=== PATIENT | female | born 1980 | race Caucasian/White ===

== ENCOUNTER 2018-02-07 18:08 | Emergency (ER) | payer MEDICAID, SELFPAY ==
[2018-02-07 18:14] VITALS: BP 109/69; PULSE 92; RESP 18; TEMP 37; O2SAT 98
[2018-02-07] MEDS: Clindamycin 150 MG CAP 450 MG (19:21)
--- NOTE | 2018-02-07 19:42 | ED.GENADUL_ITS ---
Discharge Plan Disposition Patient Disposition: HOME Condition: Good Discharge Details Chief Complaint: RashLesion Clinical Impression: Cellulitis Primary Care Provider: Deisy Cummings ED Provider: Yaakov Frederick Home Meds and New Rx's Prescriptions: New clindamycin HCl 150 mg capsule 450 mg PO TID 10 Days Qty: 90 RF: 0 No Action lamotrigine [Lamictal] 100 MG tablet 100 mg PO DAILY RF: 0 escitalopram oxalate [Lexapro] 10 MG tablet 10 mg PO DAILY RF: 0 Discharge Instructions Instructions: Cellulitis (ED) Additional Instructions: Please take the antibiotic as directed, please take them with yogurt with live cultures. If you notice any worsening of your symptoms, or any new symptoms such as vomiting, diarrhea, fever, chills, shortness of breath, chest pain, numbness, weakness, or fainting , please return immediately to the emergency department for reevaluation. Please follow up with your primary care provider as soon as possible for reassessment and reevaluation. As always, it was a pleasure participating in your medical care today. Referrals: Deisy Cummings [Primary Care Provider] - Medical Decision Making This is a 37-year-old female with a past medical history of a previous abscess a few years ago, no other significant medical problems who presents today for evaluation of abscess. Skin exam demonstrates a small area of induration with some mild surrounding cellulitis. No signs of joint inclusion, more pain with movement of the shoulder. Bedside ultrasound demonstrates some mild cobblestoning but no evidence of focal consolidation of abscess. An 18-gauge needle was inserted and a small amount of purulent discharge was removed. This was cultured. Patient will be given clindamycin, her first hip pill here, and a prescription to go home. We discussed red flags which to return, with no signs of systemic symptoms, tachycardia, or fever I feel she can be safely discharged home with close PCP follow-up I have extensively reviewed the treatment plan and discharge instructions with the patient and their family. I have addressed all patient concerns at this time. The patient and family was made aware of what symptoms to monitor for that would warrant a return to the emergency department. Discussed the plan with the patient and family, they demonstrate verbal understanding and agreement with our assessment and plan at this time. HPI General Date/Time Provider Initiated Documentation: 02/07/18 18:27 . HPI Narrative: This is a 37-year-old female with no past medical history who presents today for evaluation of right shoulder abscess. Patient states for the last 3 days she has had swelling and redness over the skin by her right shoulder. No pain with movement of the shoulder itself. No aggravating or relieving factors for the pain except for palpation making it notably worse. She denies any systemic symptoms of fever chills nausea vomiting or diarrhea. She does admit to previous symptoms like this in the past for which she had an MRSA abscess. The patient denies any recent antibiotic use. She denies any other associated symptoms. She has no other complaints at this time. She denies any recent surgery, IV or illicit drug use , or other complaints at this time. Related Data Home Medications Medication Instructions Recorded Confirmed escitalopram oxalate [Lexapro] 10 mg PO DAILY 04/05/14 02/07/18 lamotrigine [Lamictal] 100 mg PO DAILY 04/05/14 02/07/18 clindamycin HCl 450 mg PO TID 10 Days #90 cap 02/07/18 Previous Rx's Medication Instructions Recorded clindamycin HCl 450 mg PO TID 10 Days #90 cap 02/07/18 Allergies Allergy/AdvReac Type Severity Reaction Status Date / Time shellfish derived Allergy Intermediate TIGHTNESS Unverified 02/07/18 18:17 IN THROAT/EAR RED AND HOT Sulfa (Sulfonamide Allergy Intermediate VOMITING Unverified 02/07/18 18:17 Antibiotics) AND RASH Penicillins AdvReac VOMITING Unverified 02/07/18 18:17 General Stated Complaint: RashLesion MK: 4 Review of Systems Review of Systems All systems reviewed & are unremarkable except as noted in HPI and below PFSH Medical History Depression Social History Smoking/Tobacco Use Status: Former Tobacco Use Exam Narrative Exam Narrative: 1.Const: Well-nourished, Well-developed, appearing stated age 2.Eyes: PERRL, no conjunctival injection, and symmetrical lids. 3.ENT: Atraumatic external nose and ears. Moist MM. Neck: Symmetric, trachea midline, No thyromegaly. 4.CVS: +S1/S2, No murmurs or gallops. Peripheral pulses 2+ and equal in all extremities. Brisk capillary refill in all extremities. 5.RESP: Unlabored respiratory effort. Clear to auscultation bilaterally. No wheezes rales or rhonchi 6.GI: Soft, Nontender/Nondistended, No hepatosplenomegaly. No guarding or rebound. 7.MSK: Normocephalic/Atraumatic, Extremities w/o deformity or ttp No cyanosis or clubbing, Normal movement of all extremities 8.Skin: Warm, Dry. The patient does demonstrate induration with circumferential cellulitis over the right shoulder. The area is mobile and not connected to the joint. It is proximal and posterior to the shoulder itself. Area of induration is 2-1/2 cm in diameter, the mild redness/cellulitis extends roughly 3 cm from the lateral circumference. No pain with movement of the shoulder. No signs of other infection. 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 Sensation grossly intact, no focal neurologic deficits. 10.Psych: (AAO) x3. Appropriate mood and affect Course Vital Signs Temperature 37 C 02/07/18 18:14 Pulse 92 H 02/07/18 18:14 Respiratory Rate 18 02/07/18 18:14 Blood Pressure 109/69 02/07/18 18:14 Pulse Oximetry 98 02/07/18 18:14 Temperature 37 C 02/07/18 18:14 Temperature Source Temporal Artery Scan 02/07/18 18:14 Pulse 92 H 02/07/18 18:14 Respiratory Rate 18 02/07/18 18:14 Blood Pressure 109/69 02/07/18 18:14 Pulse Oximetry 98 02/07/18 18:14 Oxygen Delivery Method Room Air 02/07/18 18:14 Oxygen Flow Rate 0 02/07/18 18:14 Pain Level 3 02/07/18 18:14
[2018-02-07 19:45] VITALS: BP 109/69; PULSE 92; RESP 18; TEMP 37; O2SAT 98
== END 2018-02-07 19:48 | disposition home or self-care (01) ==
PROVIDERS: Emergency Provider Student in an Organized Health Care Education/Training Program; PCP Family Medicine
DX: L02.413 Cutaneous abscess of right upper limb (principal); L03.113 Cellulitis of right upper limb
CPT/HCPCS: 10160; 87077; 87070; 87205

== ENCOUNTER 2018-10-03 21:40 | Emergency (ER) | payer MEDICAID, SELFPAY ==
[2018-10-03 21:45] VITALS: BP 109/66; PULSE 81; RESP 16; TEMP 37.4; O2SAT 97
--- NOTE | 2018-10-03 22:08 | ED.GENADUL_ITS ---
Discharge Plan Disposition Patient Disposition: HOME Condition: Good Discharge Details Chief Complaint: Orthopedic Clinical Impression: Left knee sprain Primary Care Provider: Deisy Cummings ED Provider: Yaakov Frederick Home Meds and New Rx's Prescriptions: No Action lamotrigine [Lamictal] 100 MG tablet 100 mg PO DAILY RF: 0 escitalopram oxalate [Lexapro] 10 MG tablet 10 mg PO DAILY RF: 0 Discharge Instructions Instructions: Knee Sprain (ED) Additional Instructions: You can take a maximum of 1000 mg of Tylenol every 6 hours and 800 mg of ibuprofen every 6 hours. Please ice her knee regularly. Please take it with food. Please keep the knee brace on at all times and remain nonweightbearing with your crutches for the next week. If you have no improvement with the conservative therapy you will need to follow-up closely with your family doctor or shipping and receiving specialist at the [facility]. If you notice any worsening of your symptoms, or any new symptoms such as vomiting, diarrhea, fever, chills, shortness of breath, chest pain, numbness, weakness, or fainting , please return immediately to the emergency department for reevaluation. Please follow up with your primary care provider as soon as possible for reassessment and reevaluation. As always, it was a pleasure participating in your medical care today. Referrals: Deisy Cummings [Primary Care Provider] - Medical Decision Making This is a pleasant 38-year-old female who presents today for evaluation of left knee pain. Yesterday she states that she was walking around in her bedroom when she twisted her knee slightly, which brought about notable pain. Pain has gradually increased that she has continued to bear weight on it throughout the rest of today. Pain is made worse with movement. Physical exam demonstrates a stable knee with no evidence of significant ligamentous deformity or laxity, however she has a notably positive Suellen's test. Concerning for meniscal injury. No significant crepitus. No evidence of gross deformity. With no trauma, jumping, or other abnormality in the clinical history I doubt tibial plateau fracture or patellar fracture. Differential is highest for meniscal injury. We will get an x-ray to rule out any significant acute fracture. We will give the patient crutches and a hinged knee brace. She has worked for the [facility] before and would like to follow-up with them.. We will recommend continue Tylenol Motrin and nonweightbearing. X-ray results are not have returned from virtual radiology and per the virtual radiologist there is no acute process or fracture. Suspect meniscal injury or mild ligamentous injury. Continue nonweightbearing, NSAIDs, and hinged knee brace. Recommend continuation of conservative therapy, and if no improvement after a week, prompt orthopedic and PCP follow-up. I have extensively reviewed the treatment plan and discharge instructions with the patient and their family. I have addressed all patient concerns at this time. The patient and family was made aware of what symptoms to monitor for that would warrant a return to the emergency department. Discussed the plan with the patient and family, they demonstrate verbal understanding and agreement with our assessment and plan at this time. EXAM: XR Left Knee EXAM DATE/TIME: 10/03/2018 9:59 PM CLINICAL HISTORY: 38 years old, female; Injury or trauma; Injury history: Twisting injury; Initial encounter; Sprain or strain; Patella or knee; Left; Injury date: 10/01/2018; Injury details: Twisted knee while turning, limited range of motion and pain since TECHNIQUE: Imaging protocol: XR Left knee. Views: 3 views. COMPARISON: No relevant prior studies available. FINDINGS: Bones/joints: Typical for age. No evidence of acute fracture. Soft tissues: Unremarkable. IMPRESSION: No acute findings. Thank you for allowing us to participate in the care of your patient. Dictated and Authenticated by: John Cruz MD 10/03/2018 10:47 PM Eastern Time ([place] & [place]) HPI General Date/Time Provider Initiated Documentation: 10/03/18 21:43 . HPI Narrative: This is a 38-year-old female with no significant past medical history who presents today for evaluation of left knee pain. She states that yesterday she was walking around in her bedroom when she turned funny and twisted her left knee. She did not fall on it, she had no trauma, she denies any pop or crackle. Since then she has had mild swelling around the left knee, and the pain has gradually gotten worse. Pain is made worse with ambulation, improved by noth ing. She denies any numbness tingling or weakness. She denies any pain distal to the knee or proximal. She has no other complaints at this time. She denies any previous injuries to the knee. Related Data Home Medications Medication Instructions Recorded Confirmed escitalopram oxalate [Lexapro] 10 mg PO DAILY 04/05/14 10/03/18 lamotrigine [Lamictal] 100 mg PO DAILY 04/05/14 10/03/18 Allergies Allergy/AdvReac Type Severity Reaction Status Date / Time shellfish derived Allergy Intermediate TIGHTNESS Unverified 10/03/18 21:49 IN THROAT/EAR RED AND HOT Sulfa (Sulfonamide Allergy Intermediate VOMITING Unverified 10/03/18 21:49 Antibiotics) AND RASH Penicillins AdvReac VOMITING Unverified 10/03/18 21:49 General Stated Complaint: Orthopedic MK: 4 Review of Systems Review of Systems All systems reviewed & are unremarkable except as noted in HPI and below PFSH Medical History Depression Social History Smoking/Tobacco Use Status: Current every day Tobacco Type: cigarettes Alcohol Intake: never Drug use: Never Do you feel safe at home: Yes Do you feel safe in your relationship?: Yes Exam Narrative Exam Narrative: 1.Const: Well-nourished, Well-developed, appearing stated age 2.Eyes: PERRL, no conjunctival injection, and symmetrical lids. 3.ENT: Atraumatic external nose and ears. Moist MM. Neck: Symmetric, trachea midline, No thyromegaly. 4.CVS: +S1/S2, No murmurs or gallops. Peripheral pulses 2+ and equal in all extremities. Brisk capillary refill in all extremities. 5.RESP: Unlabored respiratory effort. Clear to auscultation bilaterally. No wheezes rales or rhonchi 6.GI: Soft, Nontender/Nondistended, No hepatosplenomegaly. No guarding or rebound. 7.MSK: Normocephalic, Extremities w/o deformity. No cyanosis or clubbing. Left knee: The knee is stable to varus, valgus, and anterior drawer stress. No deformity. Minimal edema around the knee, but no warmth or redness. No ttp to the patella, or fibular head. Mild pain on palpation of the external component of the menisci bilaterally. Positive Suellen's test in the left knee. 8.Skin: Warm, Dry. No rashes or lesions. 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 Sensation grossly intact, no focal neurologic deficits. 10.Psych: (AAO) x3. Appropriate mood and affect Course Vital Signs Temperature 37.4 C 10/03/18 21:45 Pulse 81 10/03/18 21:45 Respiratory Rate 16 10/03/18 21:45 Blood Pressure 109/66 10/03/18 21:45 Pulse Oximetry 97 10/03/18 21:45 Temperature 37.4 C 10/03/18 21:45 Temperature Source Temporal Artery Scan 10/03/18 21:45 Pulse 81 10/03/18 21:45 Respiratory Rate 16 10/03/18 21:45 Respiratory Effort Non-Labored 10/03/18 21:48 Blood Pressure 109/66 10/03/18 21:45 Blood Pressure Position Sitting 10/03/18 21:45 Pulse Oximetry 97 10/03/18 21:45 Oxygen Delivery Method Room Air 10/03/18 21:45 Oxygen Flow Rate 0 10/03/18 21:45 Pain Level 6 10/03/18 21:45
--- NOTE | 2018-10-03 22:24 | DI.RAD_ITS ---
SYMPTOM/DIAGNOSIS: LT KNEE PAIN, TWISTED KNEE LEFT KNEE: Three views. No acute fracture or dislocation is present.
--- NOTE | 2018-10-03 22:48 | DI.VRAD_ITS ---
EXAM: XR Left Knee EXAM DATE/TIME: 10/03/2018 9:59 PM CLINICAL HISTORY: 38 years old, female; Injury or trauma; Injury history: Twisting injury; Initial encounter; Sprain or strain; Patella or knee; Left; Injury date: 10/01/2018; Injury details: Twisted knee while turning, limited range of motion and pain since TECHNIQUE: Imaging protocol: XR Left knee. Views: 3 views. COMPARISON: No relevant prior studies available. FINDINGS: Bones/joints: Typical for age. No evidence of acute fracture. Soft tissues: Unremarkable. IMPRESSION: No acute findings. Dictated and Authenticated by: John Cruz MD. Ordering:BAYRON Nuno MD
== END 2018-10-03 22:56 | disposition home or self-care (01) ==
PROVIDERS: Emergency Provider Student in an Organized Health Care Education/Training Program; PCP Family Medicine
DX: S83.92XA Sprain of unspecified site of left knee, initial encounter (principal); X50.9XXA Other and unspecified overexertion or strenuous movements or postures, initial encounter
CPT/HCPCS: 29505; 73562; 99283; 99282; E0114; L1810

== ENCOUNTER 2020-01-05 16:03 | Outpatient (CLI) | payer MEDICAID, SELFPAY ==
[2020-01-08 13:46] LABS: Method Summary See Comments; Patient Race White; SARS-CoV-2 RNA Undetected (Undetected); SARS-CoV-2 Specimen Source Nasal
== END 2020-01-05 16:23 ==
PROVIDERS: PCP Family Medicine; Visit Provider Family Medicine
DX: Z11.59 Encounter for screening for other viral diseases (principal)
CPT/HCPCS: U0003

== ENCOUNTER 2020-11-24 15:47 | Outpatient (REF) | payer MEDICAID, SELFPAY | END 2020-11-24 15:48 | disposition home or self-care (01) | LOC: LBN 15:47 | PROVIDERS: PCP Family Medicine; Visit Provider Physician Assistant Medical | DX: J02.9 Acute pharyngitis, unspecified (principal) | CPT/HCPCS: 87070 ==

== ENCOUNTER 2020-12-27 15:48 | Outpatient (CLI) | payer MEDICAID, SELFPAY ==
[2020-12-27 16:09] LABS: Abs Immature Grans 0.02 10^3/uL (0.0-0.06); Absolute Basophil Count 0.02 10^3/uL (0.0-0.2); Absolute Eosinophil Count 0.04 10^3/uL (0.0-0.7); Absolute Lymphocyte Count 1.96 10^3/uL (1.2-3.4); Absolute Monocyte Count 0.32 10^3/uL (0.1-0.8); Absolute Neutrophil Count 4.03 10^3/uL (1.2-6.7); Basophils % 0.3; Eosinophils % 0.6; HCT 38.7 % (36.0-46.0); HGB 13.2 g/dL (11.2-15.7); Immature Grans % 0.3; Lymphocytes % 30.7; MCH 31.1 pg (27.0-33.0); MCHC 34.1 % (32.0-36.0); MCV 91.1 fL (80-95); Neutrophils % 63.1; Nucleated RBC 0 %; Platelet Count 186 10^3/uL (130-400); RBC 4.25 10^6/uL (3.93-5.22); RDW 12.1 % (11.7-14.6); RDW-SD 40.1 fL; WBC 6.39 10^3/uL (4.4-10.8)
[2020-12-27 16:51] LABS: Anion Gap 7.2 mmol/L (3-11); BUN 10 mg/dL (7-18); CO2 29.8 mmol/L (21.0-32.0); CREATININE 0.7 mg/dL (0.55-1.02); Calcium 8.5 mg/dL (8.5-10.1); Chloride 106 mmol/L (98-107); Glucose 74 mg/dL (74-106); Potassium 3.8 mmol/L (3.5-5.1); Sodium 143 mmol/L (136-145)
[2020-12-28 12:42] LABS: HIV-1/2 Ag & Ab Screen Negative (Negative)
[2020-12-28 15:02] LABS: Hepatitis C Ab w Rflx HCV PCR Negative (Negative)
== END 2020-12-27 15:49 | disposition home or self-care (01) ==
LOC: LBO 15:52
PROVIDERS: PCP Family Medicine; Visit Provider Family Medicine
DX: Z00.00 Encounter for general adult medical examination without abnormal findings (principal); W46.0XXA Contact with hypodermic needle, initial encounter; Z11.4 Encounter for screening for human immunodeficiency virus [HIV]
CPT/HCPCS: 36415; 80048; 86803; 87389; 85025

== ENCOUNTER 2021-03-10 06:25 | Emergency (ER) | payer MEDICAID, SELFPAY ==
[2021-03-10 06:28] VITALS: BP 134/72; PULSE 89; RESP 20; TEMP 36.7; O2SAT 99
--- NOTE | 2021-03-10 06:28 | W.ED.GENAD ---
Discharge Plan Disposition Patient Disposition: HOME Condition: Improving Discharge Details Clinical Impression: Vertigo Primary Care Provider: Deisy Cummings ED Provider: Reva Palomo Home Meds and New Rx's Prescriptions: New meclizine 12.5 mg tablet 12.5 mg PO TID PRN (Reason: dizziness) Qty: 14 RF: 0 Continued COVID-19 vacc,mRNA(Moderna)-PF 100 mcg/0.5 mL suspension 0.5 ml IM ONCE Qty: 0.5 RF: 0 lamotrigine [Lamictal] 100 MG tablet 100 mg PO DAILY RF: 0 escitalopram oxalate [Lexapro] 10 MG tablet 10 mg PO DAILY RF: 0 Discharge Instructions Instructions: Vertigo (ED) Additional Instructions: Drink plenty of fluids and get plenty of rest. Alternate tylenol and motrin as needed and directed for pain. A prescription for meclizine was sent electronically to your pharmacy. You can take 1-2 tabs of this every 8 hours as needed for dizziness. Follow-up with your primary care doctor in 1 week. Call the neurologist office of Dr. Prado today to schedule a follow-up appointment for reevaluation of your dizziness and your chronic headaches. Return to the emergency department with any worsening or new concerning symptoms for reevaluation and for consideration for MRI brain if you are agreeable at another time. Stand Alone Forms: Work Release Referrals: Talia Prado MD [ [facility] STAFF PHYSICIAN] - Discharge Data Discharge Date/Time-TO BE ENTERED AT DEPARTURE: 03/10/21 10:53 Discharge Physician: Reva Palomo Medical Decision Making <Calin Brasher MD - Last Filed: 03/10/21 07:00> Patient presenting with persistent vertigo for a day now. Has a slight headache and nausea but no other symptoms. Is having difficulty ambulating and has fallen into the wall couple of times this morning. Does not really seem to be positional although being upright and ambulating does exacerbate. When lying flat with her eyes closed, she continues to have vertiginous feeling. Other than gait difficulty neuro exam is nonfocal. However, given persistent vertigo with gait dysfunction we will proceed with CT head/CTA brain and neck. Will treat with Zofran and Valium. Check basic routine labs. <Reva Palomo DO - Last Filed: 03/14/21 09:41> 0800 --please see Dr. Brasher's note for initial presentation, exam and plan. Case endorsed to follow-up on imaging results and final disposition. CTA head and neck negative. Patient reassessed and she states she feels much better. Dizziness near resolved. She describes to me that her dizziness is a spinning sensation that is worse with head movement and when ambulating. She does feel it sometimes at rest but is much worse with movement. This does appear positional. Will give IV fluids and contact Dr. Prado for any further recommendations. 1030 --patient reassessed and she feels much better and she is requesting to go home. As her symptoms have been completely improved with meds and does appear positional, I suspect that this is more a peripheral vertigo. I did however discuss with Dr. Prado and for completeness of ruling out potential central process as she had vertigo while at rest, agrees with plan for MRI brain. Patient states she cannot stay for the MRI brain as she needs to take her daughter for an outpatient test today. The risks of or disability due to a potential missed diagnoses or worsening condition explained and patient understands. She demonstrates capacity make decisions A prescription for meclizine has been sent electronically to her pharmacy. She was also placed on follow-up list for an appointment with neurology for further evaluation of her vertigo and her chronic headaches. Usual and customary return precautions given prior to discharge. Medical Records Medical records reviewed: Yes I reviewed the patient's medical records. Imaging Data Radiologic Study: Radiologist's impression: CT BRAIN NECK CTA CLINICAL HISTORY: vertigo/falls when ambulating. TECHNIQUE: Imaging Protocol: Axial CT angiography was performed with multi-slice acquisition and multi-planar and/or 3D reconstructions. CONTRAST MATERIAL: Intravenous: Omnipaque 350 Contrast volume:structured data in ml COMPARISON: No exams were available for comparison FINDINGS: CTA Neck W: Aortic arch anatomy: The aortic arch anatomy is conventional. Anterior circulation: Common carotid arteries are patent without significant stenosis. There is also no significant stenosis at the carotid bifurcations nor in the proximal internal carotid arteries. Both internal carotid arteries are nicely patent in the neck and skull base. No narrowing. No dissection. Posterior circulation: Both vertebral arteries are patent. No evidence of stenosis at their origins off of the subclavian arteries. No stenosis in the subclavian arteries proximal to the vertebral artery takeoff points. Both vertebral arteries ascend with normal and equal luminal diameters within the foramen transversarium and both vertebral arteries contribute to the formation of the basilar artery at the skull base. Posterior inferior cerebellar arteries arise off the vertebral arteries at the skull base. CTA Brain W: Anterior circulation: Both internal carotid arteries are patent in the skull base carotid canals as well as within the cavernous sinuses. Supraclinoid aspects of these vessels are patent and nonaneurysmal. Both A1 segments are patent as are the anterior cerebral arteries and there is no evidence of aneurysm at the level of the anterior communicating artery. Middle cerebral arteries are patent. No significant stenosis nor occlusion. No aneurysms. Posterior circulation: Basilar artery ascends in the midline with normal luminal diameter. Distally it gives off superior cerebellar arteries and above this level terminates as none patent posterior cerebral arteries. There is no evidence of aneurysm of the tip of the basilar artery CT BRAIN: There is no evidence of intracranial hemorrhage, mass effect, or shift of midline structures. There are no extra-axial fluid collections. Ventricles are not enlarged or shifted. There are no ring enhancing lesions in the brain and no abnormal meningeal enhancement. IMPRESSION: 1. Patent carotid and vertebral arteries in the neck. No stenosis. 2. Patent intracranial arteries. No stenosis. No aneurysms. 3. No acute intracranial findings. No abnormal enhancing intracranial findings. Lab Data Lab results reviewed: Yes I reviewed the patient's lab results. Labs: Laboratory Tests Range/Units 03/10/21 03/10/21 03/10/21 07:20 07:20 07:20 WBC (4.4-10.8) 10^3/uL 5.19 RBC (3.93-5.22) 10^6/uL 4.42 Hgb (11.2-15.7) g/dL 13.5 Hct (36.0-46.0) % 40.7 MCV (80-95) fL 92.1 MCH (27.0-33.0) pg 30.5 MCHC (32.0-36.0) % 33.2 RDW (11.7-14.6) % 11.9 Plt Count (130-400) 10^3/uL 178 MPV (8.0-11.0) fL 10.4 Immature Gran % 0.2 Neutrophils % 68.4 Lymphocytes % 25.4 Monocytes % 4.4 Eosinophils % 1.2 Basophils % 0.4 Nucleated RBC % % 0 Absolute Neutrophils (1.2-6.7) 10^3/uL 3.55 Absolute Lymphocytes (1.2-3.4) 10^3/uL 1.32 Absolute Monocytes (0.1-0.8) 10^3/uL 0.23 Absolute Eosinophils (0.0-0.7) 10^3/uL 0.06 Absolute Basophils (0.0-0.2) 10^3/uL 0.02 Sodium (136-145) mmol/L 143 Potassium (3.5-5.1) mmol/L 4.0 Chloride (98-107) mmol/L 104 Carbon Dioxide (21.0-32.0) mmol/L 29.8 Anion Gap (3-11) mmol/L 9.2 BUN (7-18) mg/dL 15 Creatinine (0.55-1.02) mg/dL 0.8 Estimated GFR/1.73 m2 (mL/min/1.73m2) >= 60.00 Glucose (74-106) mg/dL 92 Calcium (8.5-10.1) mg/dL 8.4 L Serum HCG, Qual Negative HPI <Calin Brasher MD - Last Filed: 03/10/21 07:00> General Mode of arrival: ambulatory. Date/Time Provider Initiated Documentation: 03/10/21 06:27. Limitations to Documentation: no limitations. Information obtained by: patient and RN notes reviewed. HPI Narrative: Patient presents to the ED with difficulty ambulating and dizziness since yesterday. Patient reports similar episode but much milder about a month ago. Resolved in about a day. Started having symptoms again yesterday. Has had difficulty with ambulating and is following the wall couple of times now. She has a slight headache. She has persistent dizziness but if she is lying down or not. She does feel like she is worse with standing. She has nausea but no vomiting. She has no visual change other than that things appear to be moving. No cognitive or speech changes. No numbness or weakness. No new medications. No illnesses. No significant medical history to speak of. She is a smoker. Her has M?ni?re's disease and she has tried meclizine with minimal change in symptoms. Related Data Home Medications Medication Instructions Recorded Confirmed escitalopram oxalate [Lexapro] 10 mg PO DAILY 11/30/14 11/04/21 lamotrigine [Lamictal] 100 mg PO DAILY 04/05/14 03/10/21 meclizine 12.5 mg PO TID PRN #14 tab 03/10/21 Previous Rx's Medication Instructions Recorded meclizine 12.5 mg PO TID PRN #14 tab 03/10/21 Allergies Allergy/AdvReac Type Severity Reaction Status Date / Time shellfish derived Allergy Intermediate TIGHTNESS Unverified 03/10/21 06:31 IN THROAT/EAR RED AND HOT Sulfa (Sulfonamide Allergy Intermediate VOMITING Unverified 03/10/21 06:31 Antibiotics) AND RASH Penicillins AdvReac VOMITING Unverified 03/10/21 06:31 General MK: 4 Review of Systems <Calin Brasher MD - Last Filed: 03/10/21 07:00> Narrative: 02/17 Review of Systems completed and is negative except as stated above in HPI (Systems reviewed: Const, Eyes, ENT, Resp, CV, GI, , MSK, Skin, Neuro) PFSH <Calin Brasher MD - Last Filed: 03/10/21 07:00> Medical History Depression Social History Smoking/Tobacco Use Status: Current every day Tobacco Type: cigarettes Smoking risk assessment performed?: Yes Alcohol Intake: never Drug use: Never Substance use type: does not use Do you feel safe at home: Yes Do you feel safe in your relationship?: Yes Exam <Calin Brasher MD - Last Filed: 03/10/21 07:00> Narrative Exam Narrative: Const: WDWN female in NAD. HEENT: NC/AT. Normal facial exam. Eyes: PERRL and EOMI. No nystagmus. Normal conjunctiva and sclera. Neck: Supple. Trachea midline. Lungs: Normal respiratory effort. Cor: RRR. Good radial pulses. GI: Soft and ND. Neuro: A+O x 3. Normal speech, mentation. Cranial nerves II - XII intact. No motor or sensory deficit. FTN normal. Gait slightly wide based. Unable to tandem walk without assistance. Ext: No C/C/E. Skin: Warm and dry without rash. Sign Out <Calin Brasher MD - Last Filed: 03/10/21 07:00> Sign Out Data: Sign Out Comment: pending CTA head/neck Last updated by Calin Brasher MD at 03/10/21 07:49
--- NOTE | 2021-03-10 06:30 | DI.CT_ITS ---
Exam(s) CT BRAIN NECK CTA EXAM: CT BRAIN NECK CTA CLINICAL HISTORY: vertigo/falls when ambulating. TECHNIQUE: Imaging Protocol: Axial CT angiography was performed with multi-slice acquisition and mu lti-planar and/or 3D reconstructions. CONTRAST MATERIAL: Intravenous: Omnipaque 350 Contrast volume:structured data in ml COMPARISON: No exams were available for comparison FINDINGS: CTA Neck W: Aortic arch anatomy: The aortic arch anatomy is conventional. Anterior circulation: Common carotid arteries are patent without significant stenosis. There is also no significant stenos is at the carotid bifurcations nor in the proximal internal carotid arteries. Both internal carotid arteries are nicely patent in the neck and skull base. No narrowing. No dissection. Posterior circulation: Both vertebral arteries are patent. No evidence of stenosis at their origins off of the subclavian a rteries. No stenosis in the subclavian arteries proximal to the vertebral artery takeoff points. Jelani th vertebral arteries ascend with normal and equal luminal diameters within the foramen transversariu m and both vertebral arteries contribute to the formation of the basilar artery at the skull base. P osterior inferior cerebellar arteries arise off the vertebral arteries at the skull base. CTA Brain W: Anterior circulation: Both internal carotid arteries are patent in the skull base carotid canals as well as within the cave rnous sinuses. Supraclinoid aspects of these vessels are patent and nonaneurysmal. Both A1 segments are patent as are the anterior cerebral arteries and there is no evidence of aneurysm at the level o f the anterior communicating artery. Middle cerebral arteries are patent. No significant stenosis nor occlusion. No aneurysms. Posterior circulation: Basilar artery ascends in the midline with normal luminal diameter. Distally it gives off superior c erebellar arteries and above this level terminates as none patent posterior cerebral arteries. There is no evidence of aneurysm of the tip of the basilar artery CT BRAIN: There is no evidence of intracranial hemorrhage, mass effect, or shift of midline structures. There are no extra-axial fluid collections. Ventricles are not enlarged or shifted. There are no ring enh ancing lesions in the brain and no abnormal meningeal enhancement. IMPRESSION: 1. Patent carotid and vertebral arteries in the neck. No stenosis. 2. Patent intracranial arteries. No stenosis. No aneurysms. 3. No acute intracranial findings. No abnormal enhancing intracranial findings. RADIATION DOSE DELIVERED: 1,714.31mGy.cm Total DLP DATA REPOSITORY: All CT scans at this facility are submitted to the National Radiology Data Registry (NRDR) Dose Index Registry (DIR) with the [employer] (A[employer]). RADIATION OPTIMIZATION: All CT scans at this facility use at least one of these dose optimization te chniques: automated exposure control; mA and/or kV adjustment per patient size (includes targeted exa ms where dose is matched to clinical indication); or iterative reconstruction.
[2021-03-10 06:33] VITALS: RESP 20
[2021-03-10] MEDS: Ondansetron 4 MG/2 ML VIAL IVP (07:22)
[2021-03-10] MEDS: diazePAM 10 MG/2 ML SYR 5 MG IVP (07:27)
[2021-03-10 07:33] LABS: Abs Immature Grans 0.01 10^3/uL (0.0-0.06); Absolute Basophil Count 0.02 10^3/uL (0.0-0.2); Absolute Eosinophil Count 0.06 10^3/uL (0.0-0.7); Absolute Lymphocyte Count 1.32 10^3/uL (1.2-3.4); Absolute Monocyte Count 0.23 10^3/uL (0.1-0.8); Absolute Neutrophil Count 3.55 10^3/uL (1.2-6.7); Basophils % 0.4; Eosinophils % 1.2; HCT 40.7 % (36.0-46.0); HGB 13.5 g/dL (11.2-15.7); Immature Grans % 0.2; Lymphocytes % 25.4; MCH 30.5 pg (27.0-33.0); MCHC 33.2 % (32.0-36.0); MCV 92.1 fL (80-95); MPV 10.4 fL (8.0-11.0); Monocytes % 4.4; Neutrophils % 68.4; Nucleated RBC 0 %; Platelet Count 178 10^3/uL (130-400); RBC 4.42 10^6/uL (3.93-5.22); RDW 11.9 % (11.7-14.6); RDW-SD 40.8 fL; WBC 5.19 10^3/uL (4.4-10.8)
[2021-03-10 07:41] LABS: Anion Gap 9.2 mmol/L (3-11); BUN 15 mg/dL (7-18); CO2 29.8 mmol/L (21.0-32.0); CREATININE 0.8 mg/dL (0.55-1.02); Calcium 8.4 mg/dL (8.5-10.1); Chloride 104 mmol/L (98-107); Glucose 92 mg/dL (74-106); Sodium 143 mmol/L (136-145)
[2021-03-10 07:48] LABS: HCG Qual (Serum) Negative
[2021-03-10] MEDS: Omnipaque 350 MG/ML 100 ML BTL IJ (08:36)
[2021-03-10] MEDS: Normal Saline - Diluent 50 ML VIAL IV (08:37)
[2021-03-10] MEDS: Normal Saline 1,000 ML 1000 ML IV (09:29)
[2021-03-10] MEDS: Dexamethasone 10 MG/ML VIAL IVP (09:29)
[2021-03-10] MEDS: ACETAMINOPHEN 1,000 MG/100 ML BTL 400 MG IVPB (09:31)
[2021-03-10 09:57] VITALS: BP 103/53; PULSE 65; RESP 17; TEMP 36.3; O2SAT 100
== END 2021-03-10 10:53 | disposition home or self-care (01) ==
PROVIDERS: Emergency Medicine; Emergency Provider Physician Assistant; PCP Family Medicine
DX: R42 Dizziness and giddiness (principal)
CPT/HCPCS: 36415; 70496; 70498; 80048; 96361; 96365; 96375; 99285; 84703; 85025; 99284; J0131; J1100; J2405; J3360; J3490

== ENCOUNTER 2021-12-13 15:34 | Outpatient (CLI) | payer MEDICAID, SELFPAY ==
--- NOTE | 2021-12-13 15:15 | DI.RAD_ITS ---
Exam(s) XR HIP LT COMPLETE AP PELVIS EXAM: XR HIP LT COMPLETE AP PELVIS INDICATION: LEFT HIP PIAN. COMPARISON: No exams were available for comparison TECHNIQUE: 2D digital imaging was performed. Two views. FINDINGS: The hip joint spaces are well maintained. There is no acetabular spurring. No joint space or soft tissue calcifications are seen. SI joints and pubic symphysis are unremarkable. No destructive bony lesions are seen. IMPRESSION: Negative pelvis and left hip. DATA REPOSITORY: RADIATION DOSE DELIVERED:
== END 2021-12-13 15:35 | disposition home or self-care (01) ==
LOC: DIORS 15:34
PROVIDERS: PCP Family Medicine; Referring Provider Family Medicine; Visit Provider Student in an Organized Health Care Education/Training Program
DX: M25.552 Pain in left hip (principal)
CPT/HCPCS: 73502

== ENCOUNTER 2022-02-10 06:12 | Day surgery (SDC) | payer MEDICAID, SELFPAY ==
[2022-02-10] VITALS (11 sets, daily range): BP systolic 103–122; BP diastolic 52–108; PULSE 54–92; RESP 12–20; TEMP 36.5–37.2; O2SAT 98–100; BMI 38.2
[2022-02-10] MEDS: Lactated Ringers 1,000 ML 30 ML IV (06:52)
--- NOTE | 2022-02-10 07:10 | W.ANESPRE ---
General Info Date of Service Date Performed: 02/10/22 Height: 5 ft 2 in Weight: 95 kg Body Mass Index (BMI): 38.2 Surgical Procedure: Operation Date: 02/10/22 07:50 Proposed Procedure Side Surgeon p Hip Arthroscopy w/Labrial Debridement VS Repair and Femoroplasty/ Hip Endoscopy w/Iliotibial Band Release and Trochanteric Bursectomy Left Russell Beavers MD s Hip Arthroscopy Russell Beavers MD Meds Allergies and Home Medications Allergies Allergy/AdvReac Type Severity Reaction Status Date / Time shellfish derived Allergy Intermediate TIGHTNESS Unverified 02/10/22 06:32 IN THROAT/EAR RED AND HOT Sulfa (Sulfonamide Allergy Intermediate VOMITING Unverified 02/10/22 06:32 Antibiotics) AND RASH Penicillins AdvReac VOMITING Unverified 02/10/22 06:32 Home Medication Medication Instructions Recorded escitalopram oxalate 10 mg tablet 10 mg PO HS 04/05/14 (Lexapro) lamotrigine 100 mg tablet 100 mg PO HS 04/05/14 (Lamictal) aspirin 81 mg tablet,delayed 81 mg PO DAILY Prevent blood clot 02/10/22 release 14 days #14 tabs naproxen 250 mg tablet 250 - 500 mg PO BID PRN #40 tabs 02/10/22 oxycodone 5 mg tablet 5 - 10 mg PO Q4H PRN moderate to 02/10/22 severe pain #18 tabs Current Visit Medications: Current Medications Generic Name Dose Route Start Last Admin Trade Name Freq PRN Reason Stop Dose Admin Ringer's Solution 1,000 mls @ 30 mls/hr 02/10/22 06:00 02/10/22 06:52 IV 03/11/22 23:59 30 mls/hr INFUSION LINWOOD Administration Cefazolin Sodium/Dextrose 2 gm in 50 mls @ 100 mls/hr 02/10/22 06:00 Ancef Duplex IVPB 02/10/22 16:00 PREOP LIWNOOD IV Miscellaneous Supplies 1 each 02/10/22 06:00 Iv Access IV 03/11/22 23:59 DIRECTED LINWOOD Oxycodone HCl 0 mg 02/10/22 07:04 Oxycodone 5 Mg Tab PO Q3H PRN PRN Pain Sodium Chloride 0 ml 02/10/22 06:00 Normal Saline Flush 10 Ml Syr IV 03/11/22 23:59 PRN PRN Sodium Chloride 0 ml 02/10/22 06:00 Normal Saline 10 Ml Vial IJ 03/11/22 23:59 DIRECTED PRN Sterile Water 0 ml 02/10/22 06:00 Water,Injection,Sterile 10 Ml Vial IJ 03/11/22 23:59 DIRECTED PRN PFSH Active Problems Active Problems: Problem Status Onset Code Vertigo R42 Labral tear of left hip joint S73.192A Trochanteric bursitis of left hip M70.62 Iliotibial band syndrome of left side M76.32 Medical History Medical History Depression Surgical History Surgical History History of endometrial ablation Tobacco Smoking/Tobacco Use Status: Current every day Tobacco Type: e-cigarettes Alcohol Alcohol Intake: never Substance Use Substance use: Never Substance use type: does not use Vital Signs and Lab Results Vital Signs Most Recent Vital Signs in EMR: Most Recent Vital Signs Temp Pulse Resp BP Pulse Ox 37.2 C 89 20 118/70 98 02/10/22 06:25 02/10/22 06:25 02/10/22 06:25 02/10/22 06:25 02/10/22 06:25 Lab Results Blood Type / Crossmatch: No Data to Display Complete Blood Count: No Data to Display Complete Metabolic Panel: No Data to Display Liver Function Panel: No Data to Display Coagulation Panel: No Data to Display Cardiac Panel: No Data to Display Arterial Blood Gas: No Data to Display Venous Blood Gas: No Data to Display Pancreas Panel: No Data to Display Thyroid Panel: No Data to Display Infectious Disease: No Data to Display Blood Cultures: No Data to Display Toxicology Panel: No Data to Display Panel: No Data to Display Anesthesia Assessment and Plan Anesthesia History Personal History: No History of Anesthesia Complications Family History: No Family History of Anesthesia Complications Exercise Tolerance Exercise Tolerance: Metabolic Equivalents>4 Pertinent Negatives Pertinent Negatives: No Major Cardiovascular Symptoms or Complaints, No Major Pulmonary Symptoms or Complaints, No History of CVA/TIA and Other (Occ GERD uses Tums prn) Cardiac & Pulmonary Exam Cardiac Exam: Normal S1/S2 Heart Sounds Pulmonary Exam: Clear Bilateral Breath Sounds Implantable Cardiac Device Does patient have a Pacemaker or an ICD?: No Airway Exam Known Difficult Airway: No Mallampati Class: 2 Mouth Opening: Normal (> 3cm) Thyromental Distance: Greater than 3 cm Neck Range of Motion: Full ROM Neck Circumference: Normal Teeth Condition: Normal Dentition ASA Classification ASA Score: ASA 2 Emergency Case?: No NPO Status NPO Status: NPO Clears >2 hours, Solids >8 hours Status Status: Negative HCG Anesthesia Plan Resuscitation Status: Full Code Anesthesia Technique: General Anesthesia Airway Planned: Endotracheal Tube Pain Management: Surgeon and patient request nerve block (Left SANJANA for post op pain) Monitors Used: Standard Monitors
--- NOTE | 2022-02-10 07:15 | DI.RAD_ITS ---
Exam(s) XR HIP LT IN OR EXAM: XR HIP LT IN OR CLINICAL HISTORY: LEFT LABRAL TEAR. TECHNIQUE: 2D digital imaging was performed. COMPARISON: No exams were available for comparison FINDINGS: Fluoroscopy was provided during orthopedic procedure. See procedure report for details. Fluoroscopy time 1 minutes and 1 second Cumulative fluoroscopic dose= 15.171mGy IMPRESSION: DATA REPOSITORY: RADIATION DOSE DELIVERED:
[2022-02-10] MEDS: ceFAZolin 2 GM/50 ML BAG IVPB (07:47)
--- NOTE | 2022-02-10 08:22 | W.ANESNERVE ---
Nerve Block Single Injection Procedure Date and Time Date Performed: 02/10/22 Procedure Start: 07:48 Location Where Procedure Performed Procedure Location: Operating Room Procedure Stop: 07:59 Reason Performed: Postoperative Analgesia Requesting Provider: Russell Beavers Timeout Performed Timeout Performed: Yes Monitoring Used ECG, Blood Pressure, SpO2, ETCO2 and See EMR for corresponding vital signs Sterility Sterility: Hand Hygiene, Surgical Cap, Surgical Mask, Sterile Gloves, Sterile Drape/Sheet and Chlorhexidine Sedation Given During Procedure Sedation Given (Indicate Dose Given): No Sedation given Patient Mental Status Patient Mental Status: Performed under general anesthesia Nerve Block 1st Nerve Block: Laterality: Left Block Type: SANJANA Needle / Catheter Used: 100mm SonoPlex II Local Anesthetic Bolus (Indicate Dose Given): Injected in 3-5ml increments after negative blood aspiration and Bupivacaine 0.5% Dose:: 20 ml Additives (Indicate Dose Given): None Ultrasound: Sterile probe cover and gel used Ultrasound Image Saved?: Yes Nerve Stimulator: Not Used Paresthesia: None Procedure Tolerated: No Complications Procedure Outcome: Successful Performed By: Shawanda Smith
[2022-02-10] MEDS: EPINEPHrine 30 MG/30 ML VIAL (09:14)
[2022-02-10] MEDS: Bupivacaine 0.25% Pres-Free W/EPI 30 ML VIAL (09:15)
--- NOTE | 2022-02-10 10:00 | W.PM.DSUDISC ---
Discharge Plan Disposition Patient Disposition: HOME Condition: Stable Discharge Details Reason For Visit: Left hip surgery Attending Provider: Russell Beavers Primary Care Provider: Deisy Cummings Home Meds and New Rx's Prescriptions: New aspirin 81 mg tablet,delayed release (DR/EC) 81 mg PO DAILY 14 Days Qty: 14 0RF naproxen 250 mg tablet 250 - 500 mg PO BID PRNQty: 40 0RF Rx Instructions: take with a meal oxycodone 5 mg tablet 5 - 10 mg PO Q4H MDD 30 mg PRN (Reason: moderate to severe pain) Qty: 18 0RF Continued COVID-19 vacc,mRNA(Moderna)-PF 100 mcg/0.5 mL suspension 0.5 ml IM ONCE Qty: 0.5 0RF lamotrigine [Lamictal] 100 MG tablet 100 mg PO HS escitalopram oxalate [Lexapro] 10 MG tablet 10 mg PO HS Discharge Instructions Additional Instructions: Surgery: Left hip arthroscopy with labral debridement and femoroplasty and hip endoscopy with iliotibial band release and trochanteric bursectomy Activity: Weightbearing as tolerated. May discontinue crutches as soon as comfortable. Avoid deep hip flexion for 4 weeks. Avoid weighted squatting for about 2-3 months. A physical therapy prescription will be sent electronically to start in about 3 weeks. Prescriptions: Aspirin 81 mg take 1 daily to prevent a blood clot for 14 days Naproxen 250 mg take 1-2 every 12 hours with a meal as needed for moderate pain Oxycodone 5 mg take 1-2 every 4-6 hours as needed for severe pain You may use [id number]-[id number] Tylenol (acetaminophen) as needed for mild pain. These pain medications may be taken all at once or in different combinations as needed. Also, recommend Colace (docusate) as a stool softener as surgery and pain medicine cause constipation. You may try [id number]-[id number] diphenhydramine (Benadryl) 25-50 mg nightly as a sleep aid Dressings: Leave dressing in place for 3 days. May then remove and leave open to air or cover incisions with Band-Aids. May shower after 5 days. Follow-up: 10-[address] Beavers You may take off the leg compression stockings this evening at home. You may also leave them on a few days longer if you have a history of leg swelling or edema. Let us know right away if you develop any redness, drainage, fevers, chest pain, or trouble breathing. Do not drink alcohol or drive for at least 24 hours after anesthesia. Please call the office during business hours with any questions or concerns. Discharge Orders Discharge Orders: Discharge Order (Routine); Ordered 02/10/22 Ordered By: Russell Beavers DS: Diagnosis Discharge Diagnosis (1) Labral tear of left hip joint: Status: Acute
--- NOTE | 2022-02-10 10:08 | W.PM.OP ---
Operative Note Operative Note DATE OF PROCEDURE: 02/10/22 PRE-OP DIAGNOSIS: Left hip 1. Labral tear 2. Femoracetabular impingement 3. Iliotibial band syndrome 4. Trochanteric bursitis POST-OP DIAGNOSIS: same PROCEDURE: Left hip 1. Arthroscopic labral debridement, CPT# 20704 2. Arthroscopic femoroplasty, CPT# 22792 3. Endoscopic iliotibial band release, CPT# 24346 4. Endoscopic trochanteric bursectomy, CPT# 00204 SURGEON: Russell Beavers VIDEO MACHINES MECHANIC: Ivelisse Celestin ANESTHESIA TYPE: Local By Surgeon, General LMA/ETT and Primary Nerve Block (SANJANA) Refer to Anesthesia Record ESTIMATED BLOOD LOSS: 5 COMPLICATIONS: None Patient was transported to: PACU Patient's condition: stable Indications: Please see complete medical record for details. Findings: Small anterior superior labral tear and mild fraying. Minimal wave sign chondral labral junction instability. Small area of cartilage delamination about corresponding femoral head neck prominence. Thickened iliotibial band. Inflamed trochanteric bursitis Procedure Description: In the operating room, general and regional anesthesia were induced. The patient was positioned supine on the [place] table. All bony prominences were well-padded. Preoperative antibiotics were administered. The correct patient, procedure, and side of the procedure were all verified prior to incision. The left hip was prepped and draped in the usual sterile fashion. 20 cc of 0.25% bupivacaine containing epinephrine was infiltrated about the planned portal sites. Fluoroscopically, an anterolateral portal was established with hip under about 1 cm distraction. Traction start time as noted. Through the spinal needle, a nitinol wire was inserted and the needle removed. An 11 blade was used to create a portal sized incision about the Nitinol wire. A small 4 mm dilator was passed atraumatically over the nitinol wire through the capsule into the hip joint. The nitinol wire was removed. A 6 mm dilator was then passed over the smaller one into the hip joint and the initial dilator removed. The blunt end of a switching stick was then passed into the hip joint and the last dilator removed. The camera sleeve was then inserted over the switching stick, the switching stick removed, and the arthroscope attached to the camera sleeve. An initial dry arthroscopy of the hip joint confirmed appropriate viewing portal location about the equator laterally. Using a combination of fluoroscopic guidance and arthroscopic triangulation a modified mid anterior portal was established in a similar fashion with a spinal needle and sequential dilators. Care was taken to ensure the portal was in an appropriate position and outside the labrum. A banana blade was inserted anteriorly over half pipe. The capsule was released distal to the labrum working towards the anterolateral portal. The camera was then switched to the anterior portal, the anterolateral portal location was confirmed to be appropriate, and the banana blade brought in the anterolateral portal and the limited capsulotomies confirmed to be appropriate for the work needed to be done. The camera was then switched back to the anterolateral portal. A complete diagnostic arthroscopy of the hip was performed with relevant findings noted above. Attention was turned to the anterior superior labral tear. The mechanical shaver and radiofrequency ablator were used to resect labral fraying and smooth the remaining labrum to a stable margin. There is a small area of moderate labral resection. The remainder was only lightly debrided. Care was taken to preserve as much labral tissue as possible. At the area of most significant labral tear, there was a mildly positive chondral labral junction wave sign however it was fairly minimally unstable and did not require any repair. The blunt end of a switching stick was left in the anterior portal, but appropriately withdrawn from hip joint. The camera was withdrawn similarly. Under direct visualization traction was gradually released at 50 minutes. The femoral head neck junction was inspected about the zone of labral injury. The hip was brought through internal rotation, external rotation, and deep flexion with rotation. There was an obvious area about the femoral head neck that had cartilage delamination and a small bony divot and then prominence. The mechanical shaver was used to smooth the divot and resect the bony prominence to a more rounded form and establishing stable cartilage margins. The hip was examined through range of motion and did not disturb and straight any additional impingement. The limited capsulotomy had well apposed tissue ends and was not formally closed. The hip was drained of arthroscopic fluid. A knife was used to incise the skin for distal anterolateral portal followed by blunt dissection subcutaneously. Under fluoroscopic guidance, a switching stick and arthroscope were inserted localizing the iliotibial band over the greater trochanter. Blunt dissection and the mechanical shaver were used to resect fat and overlying tissue about the center of the iliotibial band and carefully expose the anterior and posterior margins. Once there was adequate exposure of the IT band, the greater trochanter was again localized under fluoroscopic guidance with spinal needles inserted through the skin down to bone. This central area was marked using the radiofrequency ablator. The banana blade blade was brought in and used to create a 2 cm longitudinal incision in line with the IT band fibers as well as extending it in a cruciate fashion with 2 cm incisions anteriorly and posteriorly. The radiofrequency ablator was used to achieve hemostasis. The mechanical shaver was then used to debride the IT band released edges exposing the trochanteric bursa. The mechanical shaver was then used to excise the trochanteric bursa taking care to protect musculature about the margins of the greater trochanter as well as neurovascular structures especially posteriorly. There was excellent visualization of the vastus lateralis as well as gluteus minimus and medius confirming appropriate bursa excision. The hip was brought through range of motion including internal and external rotation and there was no impinging iliotibial band tissue or remaining pathologic bursa. The viewing and working portals were switched and appropriate IT band release, trochanteric bursa excision, and hemostasis confirmed. Suction was used to remove fluid from the endoscopic space. The portals were closed using 3-0 Monocryl in a buried fashion. Steri-Strips were applied over the incisions followed by Xeroform, 4 x 4 gauze, an ABD pad and secured with tape. The patient awoke from anesthesia without complication and was transferred to the recovery room in a stable condition.
[2022-02-10] MEDS: fentaNYL 100 MCG/2 ML VIAL IVP ×2 (10:21→10:26)
[2022-02-10] MEDS: Normal Saline 10 ML VIAL IJ (10:36)
[2022-02-10] MEDS: HYDROmorphone 2 MG/ML SYR IVP ×4 (10:37→11:06)
[2022-02-10] MEDS: LORazepam 2 MG/ML VIAL 0.5 MG IVP (11:16)
--- NOTE | 2022-02-10 13:09 | W.ANESPOSTOP ---
Postoperative Evaluation Date, Time and Location Date Performed: 02/10/22 Time Performed: 13:03 Patient Location: Day Surgery Unit Vital Signs Most Recent Imported Vital Signs: Most Recent Vital Signs Temp Pulse Resp BP Pulse Ox 36.8 C 92 H 16 108/75 99 02/10/22 11:28 02/10/22 11:28 02/10/22 11:28 02/10/22 11:28 02/10/22 11:28 Pain Score Most Recent Pain Score: Most Recent Pain Score Pain Level 5 02/10/22 11:28 Assessment Mental Status: Awake (Alert & Oriented to Patient Baseline) Airway and Respiratory Function: Patent airway with normal (patient baseline) respiratory exam Cardiovascular Function: Hemodynamically Stable Hydration Status: Adequately Hydrated Nausea & Vomiting: No Nausea or Vomiting Pain: Pain is tolerable per patient Peripheral Nerve Block: Regional nerve block not resolved at time of post operative discharge
[2022-02-10] MEDS: oxyCODONE 5 MG TAB PO (13:22)
== END 2022-02-10 13:55 | disposition home or self-care (01) ==
PROVIDERS: PCP Family Medicine; Visit Provider Student in an Organized Health Care Education/Training Program
PROC: (CPT 29863; principal; 2022-02-10 07:30)
DX: M70.62 Trochanteric bursitis, left hip (principal); M25.852 Other specified joint disorders, left hip; M76.32 Iliotibial band syndrome, left leg; S73.192A Other sprain of left hip, initial encounter; X58.XXXA Exposure to other specified factors, initial encounter
CPT/HCPCS: 29914; 27305; 27062; 29862; 76942; 73501; J0690; J1100; J1170; J1885; J2060; J2405; J2704; J3010

== ENCOUNTER 2022-07-05 10:38 | Outpatient (REF) | payer MEDICAID, SELFPAY ==
[2022-07-05 10:23] LABS: ALT 25 U/L (14-59); AST 19 U/L (15-37); Albumin 4.2 g/dL (3.4-5.0); Alkaline Phosphatase 102 U/L (46-116); Anion Gap 8.7 mmol/L (3-11); BUN 10 mg/dL (7-18); Bilirubin, Total 0.3 mg/dL (0.2-1.0); CO2 28.3 mmol/L (21.0-32.0); CREATININE 0.8 mg/dL (0.55-1.02); Calcium 9.1 mg/dL (8.5-10.1); Chloride 106 mmol/L (98-107); Estimated GFR 96.06 (mL/min/1.73m2); Glucose 77 mg/dL (74-106); Potassium 3.7 mmol/L (3.5-5.1); Sodium 143 mmol/L (136-145); Total Protein 7.5 g/dL (6.4-8.2)
--- OUTSIDE RECORDS SUMMARY | 2022-07-05 11:00 | XMS_ITS ---
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 11199706 Problem Night sweats R61 Active 72818584 Problem Excessive and frequent menstruation with regular cycle N92.0 Active 772295663 Problem OCD (obsessive compulsive disorder) F42 Active 627090252 Problem Personal history of cervical dysplasia Z87.410 Active 848622637 Problem Syncope and collapse R55 Active 349358513 Problem History of endometrial ablation Z98.890 Active 398637481449224 Problem Spasmodic torticollis G24.3 Active 98170746 Problem Back pain M54.9 Active 844598959 Problem BMI 35.0-35.9,adult Z68.35 Active 269496822111 105 Problem Anxiety disorder, unspecified F41.9 Active 023780708 Problem Unspecified mood [affective] disorder F39 Active 715051528 ALLERGIES Substance Reaction Event Type Date Status Ceftriaxone Sodium cellulitis Drug Allergy Dec, Ac tive Penicillin V Potassium rash Drug Allergy Dec, Active sulfa 2 of 2 GI upset Non Drug Allergy Dec, Acti ve Bactrim GI upset Drug Allergy Dec, Active sulfa 1 of 1 GI upset, Non Drug Allergy Dec, Acti ve Shellfish inner ear itch Non Drug Allergy Dec, Ac tive ENCOUNTERS Encounter Location Date Diagnosis [facility] [address] [id number] Jan, 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 [facility] [address] [id number] Oct, [address] [id number] Jun, [address] [id number] May, [address] [id number] Dec, [address] [id number] Dec, Accident caused by hypodermic needle, initial encounter W46.0XXA [address] [id number] Dec, Uvulitis K12.[address] [id number] Nov, [address] [id number] Nov, [address] [id number] Oct, Encounter for general adult medical examination without abnormal findings Z00.00 ; Accident caused by hypodermic needle, initial encounter W46.0XXA and Dysplastic nevi D23.[address] [id number] Aug, [address] [id number] Aug, [address] [id number] Jul, [facility] [address] [place] [address] [id number] 04 May, 2020 Mechanical low back pain M54.5 and Sprain and strain T14.8XXA [facility] [address] [place] [address] [id number] May, [address] [id number] Apr, [facility] [address] [place] [address] [id number] Jan, 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 ; Excessive and frequent menstruation with regular cycle N92.0 ; History of endometrial ablation Z98.890 and Personal history of cervical dysplasia Z87.[address] [id number] Nov, [address] [id number] Oct, Anxiety disorder, unspecified F41.9 and OCD (obsessive compulsive disorder) F42 [address] [id number] Oct, [address] [id number] September, [address] [id number] Jul, [address] [id number] Jul, Boil of buttock L02.[address] [id number] Jun, [address] [id number] May, Unspecified mood [affective] disorder F39 [address] [id number] May, Unspecified mood [affective] disorder F39 and Anxiety disorder, unspecified F41.[address] [id number] May, [address] [id number] May, [address] [id number] Apr, [address] [id number] Mar, [facility] [address] [place] [address] [id number] Feb, Anxiety disorder, unspecified F41.9 [facility] [address] [place] [address] [id number] Nov, [facility] [address] [place] [address] [id number] Nov, Rash R21 [facility] [address] [id number] Nov, [facility] [address] [place] [address] [id number] Oct, [facility] [address] [id number] September, [facility] [address] [id number] September, Encounter for general adult medical examination without abnormal findings Z00.[address] [id number] September, [facility] [address] [place] [address] [id number] Aug, Encounter for immunization Z23 [address] [id number] Jul, [address] [id number] Jul, Encounter for general adult medical examination without abnormal findings Z00.[address] [id number] Jul, Encounter for general adult medical examination without abnormal findings Z00.[address] [id number] May, Herpes B00.9 ; Anxiety disorder F41.9 and OCD (obsessive compulsive disorder) F42 [facility] [address] [id number] Apr, [facility] [address] [place] [address] [address] [place], [place] [id number] Mar, 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 ; Moderate cervical dysplasia N87.1 and Flu vaccine need Z23 [facility] [address] [place] [address] [id number] Jan, [facility] [address] [place] [address] [id number] Oct, [facility] [address] [place] [address] [id number] Jul, [facility] [address] [id number] Jun, Anxiety disorder F41.9 ; OCD (obsessive compulsive disorder) F42 and Skin change R23.[address] [id number] Apr, Anxiety disorder F41.9 [facility] [address] [place] [address] [id number] Dec, [facility] [address] [id number] Oct, Anxiety disorder F41.[address] [id number] Jul, Anxiety disorder F41.[address] [id number] Jun, [address] [id number] May, Anxiety disorder F41.9 ; OCD (obsessive compulsive disorder) F42 and Allergic dermatitis L23.[address] [place], [place] [id number] May, 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 ; Moderate cervical dysplasia N87.1 ; Encounter for screening for malignant neoplasm of cervix Z12.4 and BMI 35.0-35.9,adult Z68.[address] [id number] Apr, Anxiety disorder F41.[address] [id number] Jan, [facility] [address] [place], [place] [id number] Dec, [facility] [address] [place], [place] [id number] Dec, Localized enlarged lymph nodes R59.[address] [id number] Dec, Adenopathy R59.1 [facility] [address] [id number] Dec, [facility] [address] [id number] Dec, Cutaneous abscess of right hand L02.511 ; Cellulitis of arm, right L03.113 and Blister T14.8 [facility] [address] [id number] Dec, Blister T14.8 [facility] [address] [id number] Dec, [address] [id number] Dec, [facility] [address] [id number] Dec, Cutaneous abscess of right hand L02.511 [facility] [address] [id number] Dec, [address] [id number] Nov, Id reaction L30.2 [facility] [address] [id number] Nov, Abrasion of arm, right S40.811A [facility] [address] [id number] Nov, Incisional infection T81.4XXA [facility] [address] [id number] Nov, Incisional infection T81.4XXA [address] [id number] Oct, Weight gain R63.[address] [id number] Aug, Mastalgia N64.[address] [id number] May, [address] [id number] Apr, [address] [id number] Apr, Muscle strain T14.[address] [id number] Mar, Acute bacterial conjunctivitis of left eye H10.022 [facility] [address] [place] [address] [id number] Mar, [address] [id number] Feb, Encounter for routine gynecological examination Z01.419 [facility] [address] [place] [address] [id number] Feb, [facility] [address] [place] [address] [id number] Feb, Anxiety disorder F41.9 [facility] [address] [place] [address] [id number] Jan, [address] [id number] Oct, [address] [id number] Oct, Left shoulder pain 719.41 [facility] [address] [place] [address] [id number] Aug, [facility] [address] [place] [address] [id number] Aug, [address] [id number] Jun, [address] [id number] Jun, Anxiety disorder NOS 300.00 ; Encounter for routine gynecological examination Z01.419 ; Mood disorder 296.90 ; Iron deficiency anemia 280.9 ; Vitamin d deficiency 268.9 and Weight Gain 783.1 [facility] [address] [place] [address] [id number] May, [address] [id number] Mar, [facility] [address] [place] [address] [id number] Mar, [address] [id number] Mar, [address] [id number] Mar, [address] [id number] Feb, [facility] [address] [place] [address] [id number] Feb, Anxiety disorder NOS 300.00 ; Mood disorder 296.90 ; Menorrhagia 626.2 ; Iron deficiency anemia 280.9 ; Vitamin d deficiency 268.9 and Acne 706.[address] [id number] Feb, [address] [id number] Feb, ROUTINE PASTOR EXAMINATION V72.31 ; Personal history of cervical dysplasia V13.22 and Menorrhagia 626.2 [facility] [address] [place] [address] [id number] Feb, [facility] [address] [place] [address] [id number] Jan, [facility] [address] [place] [address] [id number] Dec, [facility] [address] [place] [address] [id number] Dec, [facility] [address] [place] [address] [id number] Dec, Iron (Fe) deficiency anemia 280.9 [facility] [address] [place] [address] [id number] Dec, Anemia 285.9 and Vitamin d deficiency 268.9 [facility] [address] [id number] Dec, [facility] [address] [id number] Dec, Mood disorder 296.90 ; Anxiety disorder NOS 300.00 ; OCD 300.3 and Night sweats 780.[address] [id number] Dec, [address] [id number] Nov, [address] [id number] Nov, Mood disorder 296.90 and Anxiety disorder NOS 300.[address] [id number] Nov, [address] [id number] Oct, Mood disorder 296.90 ; Anxiety disorder NOS 300.00 and Night sweats 780.[address] [id number] Oct, [address] [id number] September, [address] [id number] September, Anxiety disorder NOS 300.00 ; Mood disorder 296.90 ; Rash of entire body 782.1 ; Night sweats 780.8 and Weight Gain 783.[address] [id number] September, [facility] [address] [place] [address] [address] [place], [place] [id number] Aug, Moderate dysplasia of cervix 622.12 ; Menorrhagia 626.2 and Dysmenorrhea 625.[address] [id number] Aug, Anxiety disorder NOS 300.00 and Constipation - functional 564.[address] [id number] Jul, Anxiety disorder NOS 300.00 and Shoulder Bursitis/Tendonitis 726.[address] [id number] May, [address] [id number] May, [address] [id number] Mar, Carpal tunnel syndrome of right wrist 354.0 [facility] [address] [place] [address] [id number] Feb, BENIGN NEOPLASM NOS 229.9 [facility] [address] [place] [address] [id number] Feb, [address] [id number] Feb, [facility] [address] [place] [address] [id number] Jan, [facility] [address] [place] [address] [id number] Jan, Neoplasm of unspecified nature of bone, soft tissue, and skin 239.[address] [id number] Dec, [address] [id number] Nov, [facility] [address] [place], [place] [id number] September, Anxiety disorder NOS 300.00 and Depression 311 UNKNOWN September, [facility] [address] [place], [place] [id number] Aug, ROUTINE MEDICAL EXAM (18 YRS AND OLDER) V70.0 and SCREEN MAL NEOP-CERVIX V76.2 [facility] [address] [place], [place] [id number] Jul, IMMUNIZATIONS Vaccine Route Administration Date Status Ketorolac Tromethamine (Toradol) IM Intramuscular May 10, 2020 Administered PPD ID Intradermal November 03, 2019 Administered PPD ID Intradermal September 17, 2018 Administered PPD ID Intradermal September 02, 2018 Administere d REE - Flu VACC 6 MONTHS > IM Intramuscular Mar 12 8 Administered REE - Flu VACC 6 MONTHS > Unknown Feb 17, 2016 Ad ministered REE - Flu VACC 6 MONTHS > Unknown Feb 17, 2011 Ad ministered Tdap - Adult Unknown July 24, 2012 Administered Td -Adult Unknown Feb 23, 2003 Administered SOCIAL HISTORY Qualifiers Date Current Smoker REASON FOR REFERRAL FUNCTIONAL STATUS PLAN OF CARE Activity Details VITAL SIGNS Height 62.5 in 2020-12-06 Height 62.5 in 2020-10-05 Height 62.5 in 2020-05-10 Height 62.5 in 2020-01-06 Height 62.5 in 2019-11-03 Height 62.5 in 2019-07-09 Height 62.5 in 2019-05-15 Height 62.5 in 2018-11-20 Height 62.5 in 2018-07-11 Height 62.5 in 2018-05-23 Height 62.5 in 2018-03-12 Height 62.5 in 2017-06-26 Height 62.5 in 2016-05-29 Height 62.5 in 2016-05-12 Height 62.5 in 2015-12-22 Height 62.5 in 2015-12-21 Height 62.5 in 2015-12-16 Height 62.5 in 2015-12-15 Height 62.5 in 2015-12-07 Height 62.5 in 2015-12-03 Height 62.5 in 2015-11-12 Height 62.5 in 2015-11-11 Height 62.5 in 2015-08-09 Height 62.5 in 2015-04-22 Height 62.5 in 2015-03-17 Height 62.5 in 2015-03-05 Height 62.5 in 2015-02-19 Height 62.5 in 2014-10-06 Height 62.5 in 2014-06-10 Height 62.5 in 2014-03-04 Height 62.5 in 2014-02-25 Height 62.5 in 2014-01-12 Height 62.5 in 2013-12-12 Height 62.5 in 2013-12-10 Height 62.5 in 2013-12-02 Height 62.5 in 2013-10-22 Height N/A in 2013-09-24 Height N/A in 2013-09-09 Height 62.5 in 2013-08-25 Height 62.5 in 2013-08-20 Height N/A in 2013-07-14 Height N/A in 2013-03-19 Height N/A in 2013-02-25 Height 62.5 in 2013-01-30 Height N/A in 2012-09-16 Height 62.5 in 2012-08-13 Weight 178.6 lbs 2020-12-06 Weight 165.0 lbs 2020-10-05 Weight 200.0 lbs 2020-05-10 Weight 195.8 lbs 2020-01-06 Weight 194.6 lbs 2019-11-03 Weight declined lbs 2019-07-09 Weight 188.4 with shoes lbs 2019-05-15 Weight 179 lbs 2018-11-20 Weight 180.2 lbs 2018-07-11 Weight 183.0 lbs 2018-05-23 Weight 165.4 lbs 2018-03-12 Weight 177.0 lbs 2017-06-26 Weight declined lbs 2016-05-29 Weight 195.0 lbs 2016-05-12 Weight 178 lbs 2015-12-21 Weight declines lbs 2015-12-16 Weight 178 lbs 2015-12-07 Weight 176.8 lbs 2015-12-03 Weight 177.4 lbs 2015-11-11 Weight 166.0 lbs 2015-08-09 Weight 159 lbs 2015-04-22 Weight 155 lbs 2015-03-17 Weight 155.6 lbs 2015-03-05 Weight 156 lbs 2015-02-19 Weight 144 lbs 2014-10-06 Weight 142 lbs 2014-06-10 Weight 133 lbs 2014-03-04 Weight 135.4 lbs 2014-02-25 Weight 137.8 lbs 2014-01-12 Weight 138 lbs 2013-12-10 Weight 140 lb 4 oz lbs 2013-12-02 Weight 139 lbs 2013-10-22 Weight 140 lbs 2013-09-24 Weight 141.0 lbs 2013-09-09 Weight 138.4 lbs 2013-08-25 Weight 139 lbs 2013-08-20 Weight 142 lbs 2013-07-14 Weight 141 lbs 2013-03-19 Weight 135 lbs 2013-02-25 Weight 135 lbs 2013-01-30 Weight 139 lbs 2012-09-16 Weight 141.6 lbs 2012-08-13 Temperature 99.3 degrees Fahrenheit Temperature 97.1 degrees Fahrenheit Temperature 97.3 degrees Fahrenheit Temperature 96.8 degrees Fahrenheit Temperature Tympanic:98.0 degrees Fahrenheit 2016-05-29 Temperature Temporal:99.0 degrees Fahrenheit 2015-12-22 Temperature Temporal:98.4 degrees Fahrenheit 2015-12-16 Temperature Temporal:98.7 degrees Fahrenheit 2015-12-07 Temperature Tympanic:98.7 degrees Fahrenheit 2015-11-12 Temperature Tympanic:99.7 degrees Fahrenheit 2015-11-11 Heart Rate 92 /min 2020-12-06 Heart Rate 75 /min 2020-10-05 Heart Rate 84 /min 2020-05-10 Heart Rate 80 /min 2019-11-03 Heart Rate 83 /min 2019-07-09 Heart Rate 90 /min 2019-05-15 Heart Rate 78 /min 2018-11-20 Heart Rate 79 /min 2018-05-23 Heart Rate 88 /min 2017-06-26 Heart Rate 64 /min 2016-05-29 Heart Rate 87 /min 2015-12-16 Heart Rate 75 /min 2015-12-03 Heart Rate 74 /min 2015-04-22 Heart Rate 78 /min 2015-03-17 Heart Rate 74 /min 2015-02-19 Heart Rate 60 /min 2014-10-06 Heart Rate 80 /min 2014-06-10 Heart Rate 68 /min 2014-03-04 Heart Rate 69 /min 2014-01-12 Heart Rate 77 /min 2013-12-12 Heart Rate 72 /min 2013-12-10 Heart Rate 74 /min 2013-12-02 Heart Rate 76 /min 2013-10-22 Heart Rate 72 /min 2013-09-24 Heart Rate 68 /min 2013-09-09 Heart Rate 72 /min 2013-08-20 Heart Rate 73 /min 2013-07-14 Heart Rate 81 /min 2013-03-19 Heart Rate 75 /min 2013-01-30 Heart Rate 66 /min 2012-09-16 Heart Rate 84 /min 2012-08-13 Oximetry 97 2020-12-06 Oximetry 99 2020-10-05 Oximetry 98 2020-05-10 Oximetry 98 2019-11-03 Oximetry 98 2019-07-09 Oximetry 98 2019-05-15 Oximetry 98 2018-11-20 Oximetry 99 2018-07-11 Oximetry 99 2018-05-23 Oximetry 99 2017-06-26 Oximetry 99 2016-05-29 Oximetry 98 2015-12-16 Oximetry 98 2015-12-03 Oximetry 100 2015-04-22 Oximetry 99 2015-03-17 Oximetry 98 2015-02-19 Oximetry 98 2014-06-10 Oximetry 98 2013-12-12 Oximetry 100 2013-12-02 Oximetry 99 2013-07-14 Oximetry 99 2013-03-19 Respiratory Rate 16 /min 2013-07-14 Respiratory Rate 16 /min 2013-03-19 Respiratory Rate 16 /min 2012-09-16 BMI 32.14 kg/m2 2020-12-06 BMI 29.69 kg/m2 2020-10-05 BMI 35.99 kg/m2 2020-05-10 BMI 35.24 kg/m2 2020-01-06 BMI 35.02 kg/m2 2019-11-03 BMI 33.91 kg/m2 2019-05-15 BMI 32.21 kg/m2 2018-11-20 BMI 32.43 kg/m2 2018-07-11 BMI 32.93 kg/m2 2018-05-23 BMI 29.77 kg/m2 2018-03-12 BMI 31.85 kg/m2 2017-06-26 BMI 35.09 kg/m2 2016-05-12 BMI 32.03 kg/m2 2015-12-21 BMI 32.03 kg/m2 2015-12-07 BMI 31.82 kg/m2 2015-12-03 BMI 31.93 kg/m2 2015-11-11 BMI 29.87 kg/m2 2015-08-09 BMI 28.61 kg/m2 2015-04-22 BMI 27.90 kg/m2 2015-03-17 BMI 28.00 kg/m2 2015-03-05 BMI 28.08 kg/m2 2015-02-19 BMI 25.92 kg/m2 2014-10-06 BMI 25.56 kg/m2 2014-06-10 BMI 23.94 kg/m2 2014-03-04 BMI 24.37 kg/m2 2014-02-25 BMI 24.80 kg/m2 2014-01-12 BMI 24.84 kg/m2 2013-12-10 BMI 25.24 kg/m2 2013-12-02 BMI 25.02 kg/m2 2013-10-22 BMI 25.20 kg/m2 2013-09-24 BMI 25.38 kg/m2 2013-09-09 BMI 24.91 kg/m2 2013-08-25 BMI 25.02 kg/m2 2013-08-20 BMI 25.56 kg/m2 2013-07-14 BMI 25.38 kg/m2 2013-03-19 BMI 24.30 kg/m2 2013-02-25 BMI 24.30 kg/m2 2013-01-30 BMI 25.02 kg/m2 2012-09-16 BMI 25.48 kg/m2 2012-08-13 Blood pressure systolic 109 mm Hg Blood pressure diastolic 67 mm Hg 2020-12 MEDICATIONS Medication Instructions Dosage Frequency Start Date End Date Duration Status lamoTRIgine 100 MG Orally Once a day 1 tablet 24h May, 90 days Active Escitalopram Oxalate 10 MG Orally Once a day 1 tablet 24h 90 days Active Acyclovir 400 MG Orally daily 1 tablet 24h Aug 90 days Active EpiPen 2-Pedro 0.3 MG/0.3ML Injection prn as directed Dec, 30 day(s) Active PROCEDURES Procedure Date Ordered Result Body Site INCISION/DRAINAGE OF ABSCESS; SIMPLE, SINGLE Dec 06, 016 ARTHROCENTESIS MAJOR J October 06, 2014 SHAVE TRUNK/EXT 0.6-1.0CM Jan 30, 2013 SHAVE TRUNK/EXT 0.6-1.0CM Jan 30, 2013 TB INTRADERMAL September 17, 2018 KETOROLAC TROMETHAMINE INJ 15 MG May 10, 2020 SHAVE TRUNK/EXT <.5CM Jan 30, 2013 SHAVE TRUNK/EXT <.5CM Jan 30, 2013 PSYCH DIAG EVAL W/MED SRVCS May 15, 2019 SHAVE FACE <.5 CM Jan 30, 2013 TB INTRADERMAL November 03, 2019 IMMUNIZATION ADMINISTRATION Mar 12, 2018 TB INTRADERMAL September 02, 2018 REE - Flu VACC 6 MONTHS > Mar 12, 2018 RESULTS Name Result Date Reference Range US PELVIC ULTRASOUND 2022-01-24 HEPATITIS C ANTIBODY 2020-12-27 Hepatitis C IgG Antibody Interpretation BASIC METABOLIC PROFILE 2020-12-27 SODIUM POTASSIUM CHLORIDE CO2 CALCIUM GLUCOSE BLOOD UREA NITROGEN CREATININE eGFR Calculated Value EGFR COMMENT OSMOLARITY ANION GAP BUN/CREATININE RATIO Estimated Glom Filt Rate CBC, WITH AUTO DIFF 2020-12-27 WBC WBC SUSPECT FLAGS RBC RBC SUSPECT FLAG HEMOGLOBIN HEMATOCRIT MCV MCH MCHC PLATELETS RDW PLT SUSPECT FLAG MPV NEUTROPHIL % LYMPHS % MONOCYTES % EOSINOPHILS % BASOPHILS % NEUTROPHILS # LYMPHOCYTES # MONOCYTES # EOSINOPHILS # BASOPHILS # MANUAL DIFFERENTIAL? PATH? PSR COMMENT SMEAR? SMEAR COMMENT SMEAR COMMENT HIV 1/0/2 ANTIBODIES 2020-12-27 HIV 1/0/2 Abs, Index Interpretation HIV 1/O/2 Abs, Qual Interpretation X X Pap Lb, rfx HPV all pth 2020-01-06 . Note: . Clinical history: DIAGNOSIS: Specimen adequacy: Additional comment: Recommendation: Performed by: Electronically signed by: Test ordered: Maturation index: Amended report: Addendum: QC reviewed by: Cytology history: Special procedure: QA comment: Diagnosis provided by: Source: Pathologist provided ICD9: * * * * Clinician provided ICD9: Interpretation LBP CPT Code Automation HEPATITIS B SURFACE ANTIBODY 2018-07-25 MEASLES ANTIBODIES, IgG ([id number]) 2018-07-25 Rubeola Ab, IgG >300.0 Immune >29.9 MUMPS IgG ANTIBODY ([id number]) 2018-07-25 RUBELLA IGG ANTIBODY 2018-07-25 VARICELLA ZOSTER IGG AB (LRH) 2018-07-25 VARICELLA ZOSTER IGG POSITIVE NEGATIV E VZG_TEXT An Equivocal result may occur when a specimen falls close to, but does not achieve, an interpretative threshold. They are statistically uninterpretable. These are repeated for validity and, if requir Pap Lb, rfx HPV all pth 2018-03-12 . Note: . Clinical history: DIAGNOSIS: Specimen adequacy: Additional comment: Recommendation: Performed by: Electronically signed by: Test ordered: Maturation index: Amended report: Addendum: QC reviewed by: Cytology history: Special procedure: QA comment: Diagnosis provided by: Source: Pathologist provided ICD9: * * * * Clinician provided ICD9: Interpretation LBP CPT Code Automation Pap Lb, rfx HPV all pth 2016-05-12 . Note: . Clinical history: DIAGNOSIS: Specimen adequacy: Additional comment: Recommendation: Performed by: Electronically signed by: Test ordered: Maturation index: Amended report: Addendum: QC reviewed by: Cytology history: Special procedure: QA comment: Diagnosis provided by: Source: Pathologist provided ICD9: * * * * Clinician provided ICD9: Interpretation LBP CPT Code Automation CT NECK W CONTRAST 2015-12-22 CBC, WITH AUTO DIFF 2015-12-21 WBC 4.4 4.8-10.8 RBC 4.17 4.20-5.40 HGB 12.8 12.0-16.0 HCT 37.3 37.0-47.0 MCV 89.4 81.0-99.0 MCH 30.7 27.0-31.0 MCHC 34.3 32.0-37.0 RDW-CV 12.4 11.5-14.5 PLT 159 130-400 MPV 10.4 7.4-10.4 NE% 63.8 42.2-75.2 LY% 27.4 20.5-51.1 MO% 7.5 1.7-9.3 EO% 0.9 0.9-2.9 BA% 0.2 0.0-0.8 NE# 2.8 1.4-6.5 LY# 1.2 1.2-3.4 MO# 0.3 0.1-0.6 EO# 0.0 0.0-0.2 BA# 0.0 0.0-0.2 CULTURE THROAT 2015-12-21 VANCOMYCIN - TROUGH 2015-12-11 VANCOMYCIN TROUGH 5.8 5.0-20.0 Time of Last Dose unknown BASIC METABOLIC PROFILE 2015-12-10 SODIUM 142 136-145 POTASSIUM 3.9 3.5-5.1 CHLORIDE 108 98-107 CO2 29 21-32 CALCIUM 7.6 8.5-10.1 BUN 8 7-18 CREATININE 0.69 0.55-1.02 EGFR >60 EGFR CMT Multiply calculated EGFR by 1.025 for Afro-americans. A/GAP 5.0 3.0-12.0 OSMOLARITY 281 275-295 B/CR 11.6 8.0-20.0 CBC, WITH AUTO DIFF 2015-12-10 WBC 4.2 4.8-10.8 RBC 3.83 4.20-5.40 HGB 12.0 12.0-16.0 HCT 34.2 37.0-47.0 MCV 89.3 81.0-99.0 MCH 31.3 27.0-31.0 MCHC 35.1 32.0-37.0 RDW-CV 12.4 11.5-14.5 PLT 113 130-400 MPV 10.8 7.4-10.4 NE% 52.5 42.2-75.2 LY% 36.8 20.5-51.1 MO% 8.1 1.7-9.3 EO% 1.9 0.9-2.9 BA% 0.5 0.0-0.8 NE# 2.2 1.4-6.5 LY# 1.6 1.2-3.4 MO# 0.3 0.1-0.6 EO# 0.1 0.0-0.2 BA# 0.0 0.0-0.2 BASIC METABOLIC PROFILE 2015-12-09 SODIUM 142 136-145 POTASSIUM 4.0 3.5-5.1 CHLORIDE 108 98-107 CO2 28 21-32 CALCIUM 8.0 8.5-10.1 BUN 11 7-18 CREATININE 0.72 0.55-1.02 EGFR >60 EGFR CMT Multiply calculated EGFR by 1.025 for Afro-americans. A/GAP 6.0 3.0-12.0 OSMOLARITY 282 275-295 B/CR 15.3 8.0-20.0 CBC, WITH AUTO DIFF 2015-12-09 WBC 5.1 4.8-10.8 RBC 4.08 4.20-5.40 HGB 12.9 12.0-16.0 HCT 36.9 37.0-47.0 MCV 90.4 81.0-99.0 MCH 31.6 27.0-31.0 MCHC 35.0 32.0-37.0 RDW-CV 12.5 11.5-14.5 PLT 129 130-400 MPV 10.9 7.4-10.4 NE% 52.3 42.2-75.2 LY% 37.6 20.5-51.1 MO% 7.7 1.7-9.3 EO% 1.8 0.9-2.9 BA% 0.4 0.0-0.8 NE# 2.6 1.4-6.5 LY# 1.9 1.2-3.4 MO# 0.4 0.1-0.6 EO# 0.1 0.0-0.2 BA# 0.0 0.0-0.2 XR CHEST PORTABLE 2015-12-09 CBC, WITH AUTO DIFF 2015-12-08 WBC 6.4 4.8-10.8 RBC 4.19 4.20-5.40 HGB 13.0 12.0-16.0 HCT 37.6 37.0-47.0 MCV 89.7 81.0-99.0 MCH 31.0 27.0-31.0 MCHC 34.6 32.0-37.0 RDW-CV 12.3 11.5-14.5 PLT 143 130-400 MPV 10.6 7.4-10.4 NE% 62.5 42.2-75.2 LY% 29.9 20.5-51.1 MO% 5.9 1.7-9.3 EO% 0.9 0.9-2.9 BA% 0.5 0.0-0.8 NE# 4.0 1.4-6.5 LY# 1.9 1.2-3.4 MO# 0.4 0.1-0.6 EO# 0.1 0.0-0.2 BA# 0.0 0.0-0.2 CULTURE DEEP WOUND w/GS 2015-12-07 US BREAST RIGHT COMPLETE (SEND-OUT) 2015-08-10 FERRITIN 2015-04-24 IRON 2015-04-24 IRON 100 50-170 VITAMIN D - 25(OH) 2015-04-24 VIT D 32.3 30.0-100.0 Pap Lb (Liquid-based) 2015-03-05 . Note: Clinical history: DIAGNOSIS: Specimen adequacy: Additional comment: Recommendation: Performed by: Electronically signed by: Test ordered: Maturation index: Amended report: Addendum: QC reviewed by: Cytology history: Special procedure: QA comment: Diagnosis provided by: Source: Pathologist provided ICD9: * * * * Clinician provided ICD9: Interpretation LBP CPT Code Automation XR SHOULDER LEFT 2014-10-20 FERRITIN 2014-06-09 IRON 2014-06-09 IRON 81 50-170 Pap Lb, rfx HPV all pth 2014-02-25 . Note: . Clinical history: DIAGNOSIS: Specimen adequacy: Additional comment: Recommendation: Performed by: Electronically signed by: Test ordered: Maturation index: Amended report: Addendum: QC reviewed by: Cytology history: Special procedure: QA comment: Diagnosis provided by: Source: Pathologist provided ICD9: * * * * Clinician provided ICD9: Interpretation LBP CPT Code Automation FERRITIN 2013-12-12 IRON 2013-12-12 IRON 48 50-170 VITAMIN B12 & FOLATE 2013-12-12 VITAMIN D - 25(OH) 2013-12-12 VIT D 34.9 30.0-100.0 CBC, WITH AUTO DIFF 2013-12-11 WBC 3.8 4.8-10.8 RBC 3.97 4.20-5.40 HGB 12.0 12.0-16.0 HCT 35.2 37.0-47.0 MCV 88.7 81.0-99.0 MCH 30.2 27.0-31.0 MCHC 34.1 32.0-37.0 RDW-CV 12.4 11.5-14.5 PLT 137 130-400 MPV 10.7 7.4-10.4 NE% 68.2 42.2-75.2 LY% 26.3 20.5-51.1 MO% 5.5 1.7-9.3 EO% 0.0 0.9-2.9 BA% 0.0 0.0-0.8 NE# 2.6 1.4-6.5 LY# 1.0 1.2-3.4 MO# 0.2 0.1-0.6 EO# 0.0 0.0-0.2 BA# 0.0 0.0-0.2 TSH 2013-10-03 LIPID PROFILE 2013-10-03 CHOLESTEROL 127 129-209 TRIGLYCERIDES 24 48-210 HDL 60 40-60 LDL (CALCULATED) 62 RISK RATIO 2.1 RISK INTERP RISK MALE FEMALE 1/2 average 3.4 3.3 Average 5.0 4.4 2x Average 9.6 T4, FREE 2013-10-03 GLUCOSE 2013-10-03 REASON FOR VISIT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
== END 2022-07-05 10:39 | disposition home or self-care (01) ==
LOC: LBN 10:38
PROVIDERS: Visit Provider Registered Nurse Infection Control
DX: Z13.6 Encounter for screening for cardiovascular disorders (principal)
CPT/HCPCS: 80053

== ENCOUNTER → 2023-03-22 02:28 | Outpatient (CLI) | payer OTHER, SELFPAY ==
--- NOTE | 2023-03-22 07:30 | DI.MRI_ITS ---
Exam(s) MR UPPER JOINT RT WO EXAM: MR UPPER JOINT RT WO CLINICAL HISTORY: persistent shoulder pain, rotator cuff impingement syndrome,m75.41. TECHNIQUE: Multiplanar multisequence MRI was performed. COMPARISON: None. FINDINGS: BONES: There is no fracture or contusion pattern. JOINTS:The acromioclavicular joint is normal. There is slight spurring at the tip of the acromion. The glenohumeral joint shows a minimal amount of fluid. TENDONS: Supraspinatus: Mild thickening. Some edema at muscle tendon junction, beneath the tip of the acromio n. No focal tendon tear. Infraspinatus: Unremarkable. Subscapularis: Unremarkable. Teres Minor: Unremarkable. Biceps and [place]: Unremarkable. MUSCLES: No atrophy. GLENOID LABRUM: Unremarkable on this noncontrast examination. SOFT TISSUES: Unremarkable. OTHER: Subacromial and subdeltoid bursae shows a minimal amount fluid.. IMPRESSION: Edema at the supraspinatus muscle tendon junction. Mild thickening and high signal in the supraspina tus tendon consistent with tendinosis. DATA REPOSITORY:
== END ==
PROVIDERS: Visit Provider Nurse Practitioner Family
DX: M75.41 Impingement syndrome of right shoulder (principal); Y99.0 Civilian activity done for income or pay
CPT/HCPCS: 73221

== ENCOUNTER 2023-04-03 08:47 | Emergency (ER) | payer OTHER, SELFPAY ==
[2023-04-03 08:50] VITALS: BP 127/75; PULSE 86; RESP 15; TEMP 37.1; O2SAT 98
--- NOTE | 2023-04-03 09:10 | ED.GENADUL_ITS ---
Discharge Plan Disposition Patient Disposition: Home Condition: Improving Discharge Details Clinical Impression: Right supraspinatus tendinitis Primary Care Provider: Unknown,Unknown ED Provider: Sabino Daley Meds and New Rx's Prescriptions: Continued acetaminophen 500 mg capsule 500 mg PO TID Qty: 1 0RF ibuprofen 800 mg tablet 800 mg PO TID Qty: 1 0RF lamotrigine [Lamictal] 100 MG tablet 100 mg PO HS escitalopram oxalate [Lexapro] 10 MG tablet 20 mg PO HS Discharge Instructions Instructions: Tendinitis (ED) Discharge Data Discharge Date/Time-TO BE ENTERED AT DEPARTURE: 04/03/23 10:34 Discharge Physician: Sabino Daley Medical Decision Making MDM: Summary: Patient is a right supraspinatus tendon injury this is visualized by Ultrasound. Will alleviate the pain ultrasound-guided joint injection with Kenalog lidocaine was achieved successfully Data Review Analysis All the data on this patient was reviewed by me including laboratory and imaging studies as well as bedside studies performed by me Independent review of Studies Imaging Lab: Risk Stratification: Differential Diagnosis: 1. Tendinitis 2. 3. 4. 5. Consultants: Shared disposition: Patient agreed to have the procedure done and consented Impression: Medical Records Medical records reviewed: Yes I reviewed the patient's medical records. HPI General Date/Time Provider Initiated Documentation: 04/03/23 09:09 . HPI Narrative: Patient presents to the emergency department with right shoulder pain which she has had for a long time but exacerbated today. She states that she has a rotator cuff supraspinatus tendon injury Related Data Home Medications Medication Instructions Recorded Confirmed escitalopram oxalate 10 mg tablet 20 mg PO HS 04/05/14 04/03/23 (Lexapro) lamotrigine 100 mg tablet 100 mg PO HS 04/05/14 04/03/23 (Lamictal) acetaminophen 500 mg capsule 500 mg PO TID pain #1 cap 03/28/23 04/03/23 ibuprofen 800 mg tablet 800 mg PO TID #1 tab 03/28/23 04/03/23 Previous Rx's Medication Instructions Recorded acetaminophen 500 mg capsule 500 mg PO TID pain #1 cap 03/28/23 ibuprofen 800 mg tablet 800 mg PO TID #1 tab 03/28/23 Allergies Allergy/AdvReac Type Severity Reaction Status Date / Time shellfish derived Allergy Intermediate TIGHTNESS Unverified 04/03/23 09:16 IN THROAT/EAR RED AND HOT Sulfa (Sulfonamide Allergy Intermediate VOMITING Unverified 04/03/23 09:16 Antibiotics) AND RASH Penicillins AdvReac VOMITING Unverified 04/03/23 09:16 General Stated Complaint: Orthopedic MK: 4 Review of Systems Narrative: Review of Systems: Constitutional: No fevers, chills, sweats Eye: No recent visual problems ENT: No ear pain, nasal congestion, sore throat Respiratory: No shortness of breath, cough Cardiovascular: No Chest pain, palpitations, syncope Gastrointestinal: No nausea, vomiting, diarrhea Genitourinary: No hematuria Obed/Lymph: Negative for bruising tendency, swollen lymph glands Endocrine: Negative for excessive thirst, excessive hunger Musculoskeletal: No back pain, neck pain, joint pain, muscle pain, decreased range of motion Integumentary: No rash, pruritus, abrasions Neurologic: Alert & oriented X 4 Psychiatric: No anxiety, depression PFSH All Active Problems Right supraspinatus tendinitis (Acute) Rotator cuff impingement syndrome of right shoulder (Acute) Vertigo (Acute) Medical History Iliotibial band syndrome of left side Depression Surgical History History of endometrial ablation Trochanteric bursitis of left hip S/P endoscopic debridement with IT band lengthenin02/10/2022 Labral tear of left hip joint S/P treatment: 02/10/2022 Social History Smoking/Tobacco Use Status: Current every day Tobacco Type: e-cigarettes Smoking risk assessment performed?: Yes Alcohol Intake: never Drug use: Never Substance use type: does not use Current gender identity: female Do you feel safe at home: Yes Do you feel safe in your relationship?: Yes Exam Narrative Exam Narrative: Exam; vitals signs as reported above normal Constitutional; In no acute distress, afebrile General: cooperative, healthy appearing, comfortable and no acute distress HEENT: Head: normal to inspection, no palpable skull fracture and normocephalic atraumatic Eyes: : appearance normal, both eyes and all related structures EOM intact bilaterally Pupils: PERRL : conjunctiva normal Direct ophthalmoscopy: normal light reflex, normal conjunctiva, normal visual acuity Ears: Normal TM, normal external canal Nose: normal no rhinorreha Neck no JVD, supple non tender Neck: normal visual inspection, full ROM and no lymphadenopathy Chest: normal inspection of the chest Respiratory : normal respiratory effort and able to speak in complete sentences no wheezing no rales Cardio Rate: regular rate, rhythm: regular rhythm normal heart sounds S1 and S2 no murmurs, gallops, or rubs GI : normal to inspection, normal bowel sounds, soft, non tender, non distended, no organomegaly Back/Spine/ no CVA tenderness Thoracic/Lumbar Spine: no tenderness or deformities Skin no rashes or lesions Neuro: patient alert oriented x 4 and no meningeal signs, Cranial Nerves: CN's II-XI intact bilaterally, Cognition: normal cognition, Speech: speech normal, Gait: normal gait, Depp tendon reflexes normal 2+ muscle strength 5/5 bilaterally Extremities, no edema, full range of motion, normal strength tenderness in the anterior right upper chest with tenderness to external rotation of the arm Course Vital Signs Vital signs: Vital Signs Temperature 37.1 C 04/03/23 08:50 Pulse 86 04/03/23 08:50 Respiratory Rate 15 04/03/23 08:50 Blood Pressure 127/75 04/03/23 08:50 Pulse Oximetry 98 04/03/23 08:50 Temperature 37.1 C 04/03/23 08:50 Temperature Source Temporal Artery Scan 04/03/23 08:50 Pulse 86 04/03/23 08:50 Respiratory Rate 15 04/03/23 08:50 Respiratory Effort Normal 04/03/23 09:06 Blood Pressure 127/75 04/03/23 08:50 Blood Pressure Position Sitting 04/03/23 08:50 Pulse Oximetry 98 04/03/23 08:50 Oxygen Delivery Method Room Air 04/03/23 08:50 Oxygen Flow Rate 0 04/03/23 08:50 Pain Level 4 04/03/23 08:50 Procedures Other Description: POCUS directed joint infiltration: Procedure done in the usual sterile technique patient prepped and draped and using the linear probe and visualizing the supraspinatus tendon on the right shoulder in the transverse longitudinal view using needle examination technique 5 mL of 50 mg Kenalog steroid was infiltrated at the level of the junction between the supraspinatus tendon and the muscle fibers where there is some swelling compatible with tendinitis. Procedure without complications POCUS Exam (ED) Limited Soft Tissue Exam DATE OF EXAM: 04/03/23 TIME OF EXAM: 10:00 PROVIDER THAT PERFORMED THE STUDY: Sabino Daley LOCATION OF EXAM: Upper extremity/right REASON FOR EXAM: Pain VISUALIZED STRUCTURES: Other structure: Supraspinatus tendon PERTINENT FINDINGS/IMPRESSION: Other (supraspinatus tendinitis R near muscle junction) impression: suprspinatus tendinitis . Exam Complete DIFFERENTIAL DIAGNOSES: Supraspinatus tendinitis
== END 2023-04-03 10:34 | disposition home or self-care (01) ==
PROVIDERS: Emergency Provider Emergency Medicine Emergency Medical Services
DX: M75.91 Shoulder lesion, unspecified, right shoulder (principal); F17.210 Nicotine dependence, cigarettes, uncomplicated
CPT/HCPCS: 20552; 76882; 99284

== ENCOUNTER 2023-05-09 15:56 | Outpatient (CLI) | payer OTHER, SELFPAY ==
--- NOTE | 2023-05-09 15:15 | DI.RAD_ITS ---
Exam(s) XR SHOULDER RT COMPLETE 2+V EXAM: XR SHOULDER RT COMPLETE 2+V CLINICAL HISTORY: pain. TECHNIQUE: 2D digital imaging was performed of the right shoulder. Three images were obtained. Axi llary and Grashey views were obtained. COMPARISON: MR MR UPPER JOINT RT WO from 03/22/2023 FINDINGS: Examination limited due to patient positioning. BONES: No acute fracture is present. No bony destructive lesion is seen. JOINTS: No dislocation present. SOFT TISSUE: Normal. IMPRESSION: No acute abnormality. DATA REPOSITORY: RADIATION DOSE DELIVERED:
== END 2023-05-09 15:57 | disposition home or self-care (01) ==
LOC: DIORS 15:56
PROVIDERS: PCP Nurse Practitioner Family; Visit Provider Physician Assistant
DX: M25.511 Pain in right shoulder (principal)
CPT/HCPCS: 73030

== ENCOUNTER 2023-06-28 06:40 | Day surgery (SDC) | payer OTHER, SELFPAY ==
--- NOTE | 2023-06-27 16:54 | W.ANESPRE ---
General Info Date of Service Date Performed: 06/28/23 Height: 5 ft 2 in Weight: 97.522 kg Body Mass Index (BMI): 39.3 Surgical Procedure: Operation Date: 06/28/23 07:40 Proposed Procedure Side Surgeon p Shoulder Rotator Cuff Arthroscopic w/Extensive Debridement, Biceps Tenodesis, Subacromial Decompression, Possible Labral Repair Right Russell Beavers MD Meds Allergies and Home Medications Allergies Allergy/AdvReac Type Severity Reaction Status Date / Time shellfish derived Allergy Intermediate TIGHTNESS Verified 06/28/23 06:44 IN THROAT/EAR RED AND HOT Sulfa (Sulfonamide Allergy Intermediate VOMITING Verified 06/28/23 06:44 Antibiotics) AND RASH Penicillins AdvReac VOMITING Verified 06/28/23 06:44 Home Medication Medication Instructions Recorded escitalopram oxalate 10 mg tablet 20 mg PO HS 04/05/14 (Lexapro) lamotrigine 100 mg tablet 100 mg PO HS 04/05/14 (Lamictal) acetaminophen 500 mg capsule 500 mg PO TID pain #1 cap 03/28/23 ibuprofen 800 mg tablet 800 mg PO TID #1 tab 03/28/23 magnesium oxide 400 mg PO DAILY 05/09/23 aspirin 81 mg tablet,delayed 81 mg PO DAILY Prevent blood clot 06/28/23 release 7 days #7 tabs naproxen 250 mg tablet 250 - 500 mg (1 - 2 x 250 mg) PO 06/28/23 BID PRN Moderate pain #40 tabs oxycodone 5 mg tablet 5 - 10 mg (1 - 2 x 5 mg) PO Q4H 06/28/23 PRN Moderate to severe pain #18 tabs Current Visit Medications: Current Medications Generic Name Dose Route Start Last Admin Trade Name Freq PRN Reason Stop Dose Admin Ringer's Solution 1,000 mls @ 30 mls/hr 06/28/23 06:00 IV 06/28/23 23:59 INFUSION LINWOOD Cefazolin Sodium/Dextrose 2 gm in 50 mls @ 100 mls/hr 06/28/23 06:00 Ancef Duplex IVPB 06/28/23 23:59 PREOP LINWOOD IV Miscellaneous Supplies 1 each 06/28/23 06:00 Iv Access IV 06/28/23 23:59 DIRECTED LINWOOD Sodium Chloride 0 ml 06/28/23 06:00 Normal Saline Flush 10 Ml Syr IV 06/28/23 23:59 PRN PRN Sodium Chloride 0 ml 06/28/23 06:00 Normal Saline 10 Ml Vial IJ 06/28/23 23:59 DIRECTED PRN Sterile Water 0 ml 06/28/23 06:00 Water,Injection,Sterile 10 Ml Vial IJ 06/28/23 23:59 DIRECTED PRN PFSH Active Problems Active Problems: Problem Status Onset Code Rotator cuff tear, right M75.101 Rotator cuff impingement syndrome of right shoulder M75.41 Vertigo R42 Medical History Medical History Iliotibial band syndrome of left side Depression Surgical History Surgical History History of endometrial ablation Trochanteric bursitis of left hip S/P endoscopic debridement with IT band lengthenin02/10/2022 Labral tear of left hip joint S/P treatment: 02/10/2022 Tobacco Smoking/Tobacco Use Status: Current every day Tobacco Type: e-cigarettes Alcohol Alcohol Intake: never Substance Use Substance use: Never Substance use type: does not use Vital Signs and Lab Results Vital Signs Most Recent Vital Signs in EMR: Temp Pulse Resp BP Pulse Ox 37.0 C 109 H 18 133/78 98 06/28/23 06:47 06/28/23 06:47 06/28/23 06:47 06/28/23 06:47 06/28/23 06:47 Lab Results Blood Type / Crossmatch: No Data to Display Complete Blood Count: No Data to Display Complete Metabolic Panel: No Data to Display Liver Function Panel: No Data to Display Coagulation Panel: No Data to Display Cardiac Panel: No Data to Display Arterial Blood Gas: No Data to Display Venous Blood Gas: No Data to Display Pancreas Panel: No Data to Display Thyroid Panel: No Data to Display Infectious Disease: No Data to Display Blood Cultures: No Data to Display Toxicology Panel: No Data to Display Panel: No Data to Display Anesthesia Assessment and Plan Anesthesia History Personal History: No History of Anesthesia Complications Family History: No Family History of Anesthesia Complications Exercise Tolerance Exercise Tolerance: Metabolic Equivalents>4 Cardiac & Pulmonary Exam Cardiac Exam: Normal S1/S2 Heart Sounds Pulmonary Exam: Clear Bilateral Breath Sounds Implantable Cardiac Device Does patient have a Pacemaker or an ICD?: No Airway Exam Known Difficult Airway: No Mallampati Class: 2 Mouth Opening: Normal (> 3cm) Thyromental Distance: Greater than 3 cm Neck Range of Motion: Full ROM Neck Circumference: Normal Teeth Condition: Normal Dentition ASA Classification ASA Score: ASA 2 Emergency Case?: No NPO Status NPO Status: NPO Clears >2 hours, Solids >8 hours Status Status: Negative HCG Anesthesia Plan Resuscitation Status: Full Code Anesthesia Technique: General Anesthesia Airway Planned: Endotracheal Tube Pain Management: Surgeon and patient request nerve block Monitors Used: Standard Monitors Preoperative Comments:: 42 yo female for shoulder scope. Sig PMHx: depression (lexapro), vertigo, e cig. denies major.
[2023-06-28] VITALS (9 sets, daily range): BP systolic 88–133; BP diastolic 43–78; PULSE 88–109; RESP 15–21; TEMP 36.8–37.2; O2SAT 97–100; BMI 39.3
--- NOTE | 2023-06-28 07:05 | W.PM.DSUDISC ---
Date of service: 06/28/23 Time of Service: 12:30 Discharge Plan Disposition Patient Disposition: Home Condition: Stable Discharge Details Attending Provider: Russell Beavers Primary Care Provider: Deepa Rivero Home Meds and New Rx's Prescriptions: New naproxen 250 mg tablet 250 - 500 mg PO BID PRN (Reason: Moderate pain) Qty: 40 0RF oxycodone 5 mg tablet 5 - 10 mg PO Q4H PRN (Reason: Moderate to severe pain) Qty: 18 0RF Continued acetaminophen 500 mg capsule 500 mg PO TID Qty: 1 0RF ibuprofen 800 mg tablet 800 mg PO TID Qty: 1 0RF magnesium oxide 400 mg magnesium capsule 400 mg PO DAILY lamotrigine [Lamictal] 100 MG tablet 100 mg PO HS escitalopram oxalate [Lexapro] 10 MG tablet 20 mg PO HS Discharge Instructions Additional Instructions: Surgery: Right shoulder arthroscopy with rotator cuff repair (subscapularis), biceps tenodesis, extensive debridement, and subacromial decompression; Partial articular supraspinatus tearing. Activity: For 6 weeks, you should keep your arm at your side in a neutral position at all times except for physical therapy. Do not try to lift or raise your arm using your own muscles. You should use the sling whenever you are out of the house. You may have to adjust the abduction pillow or remove it for comfort. At home it is best to remove the sling and rest the arm on a pillow at your side or support the operative side with your other hand. You may allow the arm to dangle at your side. A physical therapy prescription will be sent electronically to begin in about 3 weeks. Prescriptions: Naproxen 250 mg take 1-2 every 12 hours with a meal as needed for moderate pain Oxycodone 5 mg take 1-2 every 4-6 hours as needed for severe pain You may use cuip-pti-apzshjn Tylenol (acetaminophen) as needed for mild pain. These pain medications may be taken all at once or in different combinations as needed. Also, recommend Colace (docusate) as a stool softener as surgery and pain medicine cause constipation. You may try axqc-ery-qnkluil diphenhydramine (Benadryl) 25-50 mg nightly as a sleep aid Dressings: Remove shoulder bandage after 3 days. Leave the sticky Steri-Strips in place until they fall off or remove them after you shower. Cover the incisions with Band-Aids or leave them open to air. You may shower after 5 days. Follow-up: 10-[address] Beavers You may take off the leg compression stockings this evening at home. You may also leave them on a few days longer if you have a history of leg swelling or edema. Let us know right away if you develop any redness, drainage, fevers, chest pain, or trouble breathing. Do not drink alcohol or drive for at least 24 hours after anesthesia. Please call the office during business hours with any questions or concerns. Discharge Orders Discharge Orders: Discharge Order (Routine); Ordered 06/28/23 Ordered By: Enrrique Izaguirre DS: Diagnosis Discharge Diagnosis (1) SLAP lesion of right shoulder: Status: Acute (2) Traumatic tear of right rotator cuff: Status: Acute
[2023-06-28] MEDS: Lactated Ringers 1,000 ML 30 ML IV (07:17)
--- NOTE | 2023-06-28 07:17 | ROE_ITS ---
Date of service: 06/28/23 Time of Service: 07:45 Operative Note Operative Note DATE OF PROCEDURE: 06/28/23 PRE-OP DIAGNOSIS: Right: 1. Rotator cuff tear 2. SLAP tear 3. Bursitis POST-OP DIAGNOSIS: same PROCEDURE: Right: 1. Rotator cuff repair, CPT# 67166. This involved suture?only repair of the subscapularis. 2. Arthroscopic biceps tenodesis, CPT# 60834. This involved arthroscopically suturing and reattaching the long head of the biceps tendon to the proximal humerus at the superior margin of the bicipital groove with a screw at the correct tension. 3. Extensive debridement, CPT# 40458. This involved using arthroscopic hand instruments, power instruments, and radiofrequency instruments to release the long head of the biceps tendon and debride areas of anterior and posterior la bral tearing, SLAP tearing, rotator interval synovitis, release MGLH, and debride partial articular supraspinatus tendon tearing working within the glenohumeral joint anteriorly, superiorly, and posteriorly. 4. Subacromial decompression with partial acromioplasty, CPT# 87645. This involved using arthroscopic power instruments and a radiofrequency wand to complete a bursectomy and smooth the undersurface of the acromion. The showroom sales assistant was medically required in order to help assist in techniques above, which require positioning the arm, holding the arthroscope, and manipulating multiple instruments and sutures at the same time. This cannot be done without the help of an experienced showroom sales assistant. SURGEON: Russell Beavers TUBER MACHINE OPERATOR: Enrrique Izaguirre ANESTHESIA TYPE: Local By Surgeon, General LMA/ETT and Primary Nerve Block Refer to Anesthesia Record ESTIMATED BLOOD LOSS: 5 PATHOLOGY: none sent COMPLICATIONS: None Patient was transported to: PACU Patient's condition: stable Implants: Arthrex: 4.75mm SwiveLocks x 1 Indications: The patient was diagnosed with the above conditions and appropriately indicated for surgical intervention. Please see complete medical record for details. Findings: Exam under anesthesia: Full range of motion, no instability Glenohumeral joint: Moderate anterior synovitis, diminutive likely disrupted MGHL, moderate upper margin lateral subscapularis tendon tearing with disrupted tendon tissue likely interposing between the biceps intra-articular segment and glenohumeral joint. Mild anterior and posterior labral fraying type tearing. Biceps anchor SLAP tear mild disruption of the anchor with moderate fraying. Moderate partial articular supraspinatus tendon from medial to intrasubstance lateral, only mild footprint involvement, did extend from anterior to posterior involving the whole supraspinatus. Intact articular infraspinatus. Subacromial space: Moderate bursitis, mild undersurface acromial bone spurring. Mild generalized bursal supraspinatus tendon fraying. No structural bursal rotator cuff tear. Procedure Description: In the operating room, general anesthesia was induced. Bilateral shoulders were examined. The patient was positioned in the beachchair position. All bony prominences were well-padded. Preoperative antibiotics were administered. The shoulder was prepped and draped in the usual sterile fashion. The correct patient, procedure, and side of the procedure were all verified prior to incision. Starting through the posterior portal a standard complete diagnostic arthroscopy was performed of the glenohumeral joint including inspection of the long head of the biceps, anterior and superior labrum, subscapularis tendon, supraspinatus and infraspinatus tendons, and axillary recess. The glenoid and humeral head cartilage as well as the posterior labrum were inspected from an anterior viewing portal. Significant findings and interventions noted above. Of note, the anterior, superior, and posterior labrum was debrided to a stable margin. The [facility] L was released and subscapularis thoroughly examined. There was appropriate tension and only mild upper disruption of the tendon footprint involvement on the lesser tuberosity. The moderately sized tear was more in the substance of the tendon upper third laterally. This area of the tendon was debrided lightly and prepared to optimize healing with a rasp. The partial articular supraspinatus tendon tearing was lightly debrided working from anterior and working from posterior with the arm in abduction external rotation to a stable margin, did not reveal any significant footprint exposure or depth of the tear into the tendon. An all-arthroscopic suprapectoral biceps tenodesis was performed through an anterior portal using a Loop N Tack method with a SutureTape FiberLink cinched around and through the tendon. The biceps was tenotomized from the labrum and fixated with a suture anchor at the superior margin of the bicipital groove. T he extra knotless repair suture was then passed around the tendon stump and secured through the anchor eyelet mechanism with excellent additional fixation strength on the bicep tendon, which was stable through testing and motion. The biceps stump on the superior labrum and biceps stump at the repair site were both ablated to the best contour. Attention was then turned to the subscapularis tendon and the 90 degree lasso was used to shuttle a suture tape around the lateral upper margin of the tendon incorporating the tear. The repair was secured with SMC arthroscopic knots direct and the knot anteriorly and superiorly away from the joint. There was good reapposition and closure of the tendon defect. There was no additional tearing requiring repair or additional footprint disruption. Starting through the posterior portal, the arthroscope was directed into the subacromial space. A lateral 50 yard line lateral portal was omitted. A combination of power instruments and a radiofrequency ablator were used to debride bursitis anteriorly, posteriorly, and laterally as well as expose and smooth bone spurring on the undersurface of the acromion. The coracoacromial ligament was partially released. The bursectomy was completed viewing laterally and working from posteriorly and the rotator cuff was thoroughly inspected with findings noted above. The shoulder was drained of arthroscopic fluid. All portal sites were copiously irrigated. These incisions were closed using 3-0 Monocryl in a buried fashion and then covered with Mastisol, Steri-Strips, Xeroform, dry gauze, and ABDs. The dressings were covered and secured with Medipore tape. The operative extremity was placed into a sling for immobilization. The patient awoke from anesthesia without complication and was transferred to the recovery room in a stable condition.
--- NOTE | 2023-06-28 07:40 | W.ANESNERVE ---
Nerve Block Single Injection Procedure Date and Time Date Performed: 06/28/23 Procedure Start: 07:25 Location Where Procedure Performed Procedure Location: Day Surgery Unit Reason Performed: Postoperative Analgesia Requesting Provider: Russell Beavers Timeout Performed Timeout Performed: Yes Monitoring Used ECG, Blood Pressure and SpO2 Sterility Sterility: Hand Hygiene, Surgical Cap, Surgical Mask, Sterile Gloves and Chlorhexidine Sedation Given During Procedure Sedation Given (Indicate Dose Given): Versed IV Dose:: 2 mg Patient Mental Status Patient Mental Status: Sedate with meaningful communication Nerve Block 1st Nerve Block: Laterality: Right Block Type: Interscalene Ultrasound Image Saved?: Yes Needle / Catheter Used: 100mm SonoPlex II Local Anesthetic Bolus (Indicate Dose Given): Lidocaine used for local infiltration of skin, Bupivacaine 0.5% Dose:: 10 mL and Exparel Dose:: 10 mL Additives (Indicate Dose Given): None Ultrasound: Sterile probe cover and gel used Nerve Stimulator: Supplement to Ultrasound use and No twitch or parasthesia noted < 0.5 mA Paresthesia: None Procedure Tolerated: No Complications Procedure Outcome: Successful Performed By: Manolo Sebastian
[2023-06-28] MEDS: ceFAZolin 2 GM/50 ML BAG IVPB (07:41)
[2023-06-28] MEDS: Tranexamic Acid 1,000 MG/10 ML VIAL 1000 MG (08:00)
[2023-06-28] MEDS: Bupivacaine 0.25% Pres-Free 30 ML VIAL (08:57)
[2023-06-28] MEDS: EPINEPHrine 10 MG/10 ML ML (08:58)
--- NOTE | 2023-06-28 10:31 | W.ANESPOSTOP ---
Postoperative Evaluation Date, Time and Location Date Performed: 06/28/23 Time Performed: 10:00 Patient Location: PACU Vital Signs Most Recent Imported Vital Signs: Most Recent Vital Signs Temp Pulse Resp BP Pulse Ox 36.8 C 88 20 96/54 L 100 06/28/23 10:15 06/28/23 10:15 06/28/23 10:15 06/28/23 10:15 06/28/23 10:15 Pain Score Most Recent Pain Score: Most Recent Pain Score Pain Level 0 06/28/23 10:15 Assessment Mental Status: Awake (Alert & Oriented to Patient Baseline) Airway and Respiratory Function: Patent airway with normal (patient baseline) respiratory exam Cardiovascular Function: Hemodynamically Stable Hydration Status: Adequately Hydrated Nausea & Vomiting: No Nausea or Vomiting Pain: Pain is tolerable per patient Peripheral Nerve Block: Regional nerve block not resolved at time of post operative discharge
== END 2023-06-28 11:31 | disposition home or self-care (01) ==
PROVIDERS: PCP Nurse Practitioner Family; Visit Provider Student in an Organized Health Care Education/Training Program
PROC: (CPT 29827; principal; 2023-06-28 07:30)
DX: S43.431A Superior glenoid labrum lesion of right shoulder, initial encounter (principal); S46.011A Strain of muscle(s) and tendon(s) of the rotator cuff of right shoulder, initial encounter; X58.XXXA Exposure to other specified factors, initial encounter; Y99.0 Civilian activity done for income or pay; M75.51 Bursitis of right shoulder; M75.21 Bicipital tendinitis, right shoulder
CPT/HCPCS: 29827; 29828; 29826; 29823; 76942; 81025; C9290; J0131; J0665; J0690; J1100; J1885; J2250; J2371; J2405; J2704

== ENCOUNTER → 2023-09-10 01:26 | Outpatient (CLI) | payer OTHER, SELFPAY ==
--- NOTE | 2023-09-10 08:15 | DI.MRI_ITS ---
Exam(s) MR UPPER JOINT RT WO EXAM: MR UPPER JOINT RT WO CLINICAL HISTORY: R SHOULDER PAIN,traumatic tear rt rotator cuff, slap lesion rt shoulder,. TECHNIQUE: Multiplanar multisequence MRI was performed. COMPARISON: plain films 09 May 2023 FINDINGS: BONES: There is no fracture or contusion pattern. Interference screw tract in the anterior humeral he ad JOINTS:The acromioclavicular joint is normal. The glenohumeral joint is normal. TENDONS: Supraspinatus: Thickening and edema in the distal supraspinatus tendon. No visible focal tear. Infraspinatus: Unremarkable. Subscapularis: Unremarkable. [place]: Unremarkable. Biceps and [place]: Long head of biceps tendon not seen proximally. Interference screw in noted in th e anterior humeral head related to tendon repair. MUSCLES: Unremarkable. GLENOID LABRUM: Unremarkable on this noncontrast examination. SOFT TISSUES: Edema superficial to deltoid muscle. OTHER: Subacromial and subdeltoid bursae and subcoracoid bursa show minimal fluid. . IMPRESSION: No visible labral tear. Prior biceps tendon repair. Visualized biceps tendon appears intact. DATA REPOSITORY:
== END ==
PROVIDERS: PCP Nurse Practitioner Family; Visit Provider Student in an Organized Health Care Education/Training Program
DX: S46.011A Strain of muscle(s) and tendon(s) of the rotator cuff of right shoulder, initial encounter (principal); S43.431A Superior glenoid labrum lesion of right shoulder, initial encounter; X58.XXXA Exposure to other specified factors, initial encounter
CPT/HCPCS: 73221

== ENCOUNTER 2024-01-03 09:09 | Day surgery (SDC) | payer OTHER, SELFPAY ==
[2024-01-03] VITALS (25 sets, daily range): BP systolic 89–131; BP diastolic 45–86; PULSE 77–95; RESP 13–23; TEMP 35.7–36.8; O2SAT 96–99; BMI 41.7
--- NOTE | 2024-01-03 06:44 | ANES.PREOP_ITS ---
General Info Date of Service Date Performed: 01/03/24 Height: 5 ft 2 in Weight: 103.413 kg Body Mass Index (BMI): 41.7 Surgical Procedure: Operation Date: 01/03/24 10:55 Proposed Procedure Side Surgeon p Revision Shoulder Possible Rotator Cuff Arthroscopic w/Extensive Debridement, (Including Capsular Release & Synovial BX), Subacromial Decompression Right Anthony virginia Beavers MD Meds Allergies and Home Medications Allergies Allergy/AdvReac Type Severity Reaction Status Date / Time shellfish derived Allergy Intermediate TIGHTNESS Verified 01/03/24 09:19 IN THROAT/EAR RED AND HOT Sulfa (Sulfonamide Allergy Intermediate VOMITING Verified 01/03/24 09:19 Antibiotics) AND RASH Penicillins AdvReac VOMITING Verified 01/03/24 09:19 Home Medication ?Medication ?Instructions ?Recorded escitalopram oxalate 10 mg tablet 20 mg PO HS 04/05/14 (Lexapro) lamotrigine 100 mg tablet 100 mg PO HS 04/05/14 (Lamictal) acetaminophen 500 mg capsule 500 mg PO TID pain #1 cap 03/28/23 naproxen 250 mg tablet 250 - 500 mg (1 - 2 x 250 mg) PO 08/22/23 BID PRN Moderate pain #40 tabs Current Visit Medications: Current Medications Generic Name Dose Route Start Last Admin Trade Name Freq PRN Reason Stop Dose Admin Ringer's Solution 1,000 mls @ 30 mls/hr 01/03/24 06:00 IV 01/03/24 23:59 INFUSION LINWOOD IV Miscellaneous Supplies 1 each 01/03/24 06:00 Iv Access IV 01/03/24 23:59 DIRECTED LINWOOD Sodium Chloride 0 ml 01/03/24 06:00 Normal Saline Flush 10 Ml Syr IV 01/03/24 23:59 PRN PRN Sodium Chloride 0 ml 01/03/24 06:00 Normal Saline 10 Ml Vial IJ 01/03/24 23:59 DIRECTED PRN Sterile Water 0 ml 01/03/24 06:00 Water,Injection,Sterile 10 Ml Vial IJ 01/03/24 23:59 DIRECTED PRN PFSH Active Problems Active Problems: Problem Status Onset Code Adhesive capsulitis of right shoulder Acute M75.01 Traumatic tear of right rotator cuff Acute ~01/2023 S46.011A SLAP lesion of right shoulder Acute S43.431A Vertigo Acute R42 Medical History Medical History Iliotibial band syndrome of left side Depression Surgical History Surgical History History of endometrial ablation Trochanteric bursitis of left hip S/P endoscopic debridement with IT band lengthenin02/10/2022 Labral tear of left hip joint S/P treatment: 02/10/2022 Tobacco Smoking/Tobacco Use Status: Current every day Tobacco Type: e-cigarettes Alcohol Alcohol Intake: never Substance Use Substance use: Never Substance use type: does not use Vital Signs and Lab Results Lab Results Blood Type / Crossmatch: No Data to Display Complete Blood Count: No Data to Display Complete Metabolic Panel: No Data to Display Liver Function Panel: No Data to Display Coagulation Panel: No Data to Display Cardiac Panel: No Data to Display Arterial Blood Gas: No Data to Display Venous Blood Gas: No Data to Display Pancreas Panel: No Data to Display Thyroid Panel: No Data to Display Infectious Disease: No Data to Display Blood Cultures: No Data to Display Toxicology Panel: No Data to Display Panel: No Data to Display Anesthesia Assessment and Plan Anesthesia History Personal History: No History of Anesthesia Complications Family History: No Family History of Anesthesia Complications Exercise Tolerance Exercise Tolerance: Metabolic Equivalents>4 Cardiac & Pulmonary Exam Cardiac Exam: Normal S1/S2 Heart Sounds Pulmonary Exam: Clear Bilateral Breath Sounds Implantable Cardiac Device Does patient have a Pacemaker or an ICD?: No Airway Exam Known Difficult Airway: No Mallampati Class: 2 Mouth Opening: Normal (> 3cm) Thyromental Distance: Greater than 3 cm Neck Range of Motion: Full ROM Neck Circumference: Normal Teeth Condition: Normal Dentition ASA Classification ASA Score: ASA 2 Emergency Case?: No NPO Status NPO Status: NPO Clears >2 hours, Solids >8 hours Status Status: Negative HCG Anesthesia Plan Resuscitation Status: Full Code Anesthesia Technique: General Anesthesia Airway Planned: Endotracheal Tube Pain Management: Surgeon and patient request nerve block Monitors Used: Standard Monitors Preoperative Comments:: 42 yo female for revision shoulder scope. Sig PMHx: depression (lexapro), vertigo, e cig. denies major. Previous Anes: - shoulder scope, glide 3, grade 1, easy mask. phenyl gtt. ISB with midaz, 10/10 0.5%/exparel, 0/10 for pain - block lasted for 4-5 days. - hip scope, glide 3, grade 1, easy mask. SANJANA with sig pain on discharge. Discussed risks of GA and block including but not limited to N/V, damage to teeth lips and gums, reactions to meds, skin nerve and eye injuries, and the rare and serious heart/breathing/neuro problems; block specific risks of failure and 1:500 risk of permanent nerve injury.
--- NOTE | 2024-01-03 07:16 | W.PM.DSUDISC ---
Date of service: 01/03/24 Time of Service: 15:00 Discharge Plan Disposition Patient Disposition: Home Condition: Stable Discharge Details Attending Provider: Russell Beavers Primary Care Provider: Deepa Rivero Home Meds and New Rx's Prescriptions: New naproxen 250 mg tablet 250 - 500 mg PO BID PRN (Reason: Moderate pain) Qty: 40 0RF oxycodone 5 mg tablet 5 - 10 mg PO Q4H PRN (Reason: Moderate to severe pain) Qty: 18 0RF amoxicillin 500 mg capsule 500 mg PO TID 14 Days Qty: 42 0RF Rx Instructions: recommend daily probiotic Bio-K plus 50 billion cell capsule,delayed release(DR/EC) 1 cap PO DAILY 14 Days Qty: 14 0RF Continued acetaminophen 500 mg capsule 500 mg PO TID Qty: 1 0RF naproxen 250 mg tablet 250 - 500 mg PO BID PRN (Reason: Moderate pain) Qty: 40 0RF lamotrigine [Lamictal] 100 MG tablet 100 mg PO HS escitalopram oxalate [Lexapro] 10 MG tablet 20 mg PO HS Discharge Instructions Additional Instructions: Surgery: Right shoulder revision arthroscopy with extensive debridement (including capsular release and synovial biopsy) and manipulation under anesthesia Activity: You should gradually increase range of motion motion and use of your shoulder. No heavy lifting, reaching overhead, or lifting away from body for approximately 6-8 weeks. You may use the sling whenever you are out of the house for a couple weeks. At home it is best to remove the sling and rest the arm on a pillow at your side or support the operative side with your other hand. A physical therapy prescription will be sent electronically to start in about 2 weeks. Prescriptions: Amoxicillin 500 mg take 1 3-times each day for infection prevention (recommend daily probiotic while using antibiotic) Naproxen 250 mg take 1-2 every 12 hours with a meal as needed for moderate pain Oxycodone 5 mg take 1-2 every 4-6 hours as needed for severe pain You may use bmiu-gfl-[id number] Tylenol (acetaminophen) as needed for mild pain. These pain medications may be taken all at once or in different combinations as needed. Also, recommend Colace (docusate) as a stool softener as surgery and pain medicine cause constipation. You may try xhwe-oyz-ksokvhb diphenhydramine (Benadryl) 25-50 mg nightly as a sleep aid Dressings: Remove shoulder bandage after 3 days. Leave the sticky Steri-Strips in place until they fall off or remove them after you shower. Cover the incisions with Band-Aids or leave them open to air. You may shower after 5 days. Follow-up: 10-[address] Beavers You may take off the leg compression stockings this evening at home. You may also leave them on a few days longer if you have a history of leg swelling or edema. Let us know right away if you develop any redness, drainage, fevers, chest pain, or trouble breathing. Do not drink alcohol or drive for at least 24 hours after anesthesia. Please call the office during business hours with any questions or concerns. Stand Alone Forms: Anesthesia Discharge Inst., [place].Nerve Block Instructions, Jeniffer Whitman ([facility]) Discharge Orders Discharge Orders: Discharge Order (Routine); Ordered 01/03/24 Ordered By: Enrrique Izaguirre DS: Diagnosis Discharge Diagnosis (1) Adhesive capsulitis of right shoulder: Status: Acute
--- NOTE | 2024-01-03 07:25 | W.PM.OP ---
Date of service: 01/03/24 Time of Service: 12:00 Operative Note Operative Note DATE OF PROCEDURE: 01/03/24 PRE-OP DIAGNOSIS: Right: 1. Previous subscapularis rotator cuff tear 2. Prior arthroscopic biceps tenodesis 3. Adhesive capsulitis 4. Possible indolent infection POST-OP DIAGNOSIS: same PROCEDURE: Right: 1 Revision extensive debridement, CPT# 82606. Including synovial biopsy for culture multiple sites glenohumeral joint, anterior capsular release, central glenoid chondroplasty, and rotator interval and subacromial debridement. 2. Manipulation under anesthesia, CPT #18635 The expanded duty dental assistant was medically required in order to help assist in techniques above, which require positioning the arm, holding the arthroscope, and manipulating multiple instruments and sutures at the same time. This cannot be done without the help of an experienced expanded duty dental assistant. SURGEON: Russell Beavers ENVIRONMENTAL HEALTH SPECIALIST: Enrrique Izaguirre ANESTHESIA TYPE: Local By Surgeon, General LMA/ETT and Primary Nerve Block Refer to Anesthesia Record ESTIMATED BLOOD LOSS: 5 PATHOLOGY: other (3x sets tissue cultures) COMPLICATIONS: None Patient was transported to: PACU Patient's condition: stable Implants: None Indications: The patient was diagnosed with the above conditions and appropriately indicated for surgical intervention. Please see complete medical record for details. Findings: Exam under anesthesia: Moderately restricted forward elevation, mildly restricted external rotation. No significant instability or mechanical sensations. Glenohumeral joint: Significant anterior capsulitis and adhesions about the subscapularis. Rotator interval significant synovitis. Intact prior suture?only subscapularis repair. As best visualized, apparent intact arthroscopic biceps tenodesis. Significantly diminished axillary recess. All consistent with adhesive capsulitis. No overt signs of infection. No new supraspinatus tearing. Subacromial space: Minimal bursitis. No new bursal rotator cuff tearing. Procedure Description: In the operating room, general anesthesia was induced. Bilateral shoulders were examined. There was a less significant restriction to motion while relaxed under anesthesia. Forward elevation was to about 125 degrees, external rotation to about 45 degrees. Quite readily and easily starting with forward elevation there were gradual nice releases into full forward elevation past 145 degrees. Next the arm was brought to external rotation which was past 75 degrees without really any releases. Abduction and internal rotation at 90 degrees were also then full. The endpoints of external rotation and forward elevation were exaggerated and stretched numerous times The patient was positioned in the beachchair position. All bony prominences were well-padded. Preoperative antibiotics were held pending tissue samples for culture. The shoulder was prepped and draped in the usual sterile fashion. The correct patient, procedure, and side of the procedure were all verified prior to incision. Starting through the previous posterior portal, the glenohumeral joint was inspected. The prior anterior portal was opened as well. Pituitary rongeur's were used to obtain multiple samples of capsulitis and synovitis about the glenohumeral joint and separate into 3 separate specimen cups for 14-day culture. The third culture had sutures from the subscapularis repair. Antibiotics were then administered. A combination of the radiofrequency ablator, mechanical shaver, and arthroscopic scissors were used to reopen the rotator interval as well as free up scarred adhesions about the subscapularis. A small amount of central glenoid chondromalacia was lightly debrided as well. The area from the subscapularis repair remove sutures was healed and intact. Hidden at the superior aspect of the bicipital groove where sutures and a probable biceps tendon stump just below. No apparent disruption. There was significant synovitis and loss of axillary space, but motion was now full external and forward elevation. Posteriorly the posterior capsule and labrum were lightly debrided as well. The glenohumeral joint was thoroughly irrigated with normal saline. Hemostasis was appropriate. The humeral joint was drained of arthroscopic fluid. The arthroscope was redirected in the subacromial space from posterior, and anterior portal was redirected in the subacromial space, which only required slight debridement given the minimal bursitis and rotator cuff was readily visualized intact. This area was copiously irrigated as well before being drained of fluid. All portal sites were copiously irrigated. These incisions were closed using 3-0 Monocryl in a buried fashion and then covered with Mastisol, Steri-Strips, Xeroform, dry gauze, and ABDs. The dressings were covered and secured with Medipore tape. The operative extremity was placed into a sling for immobilization. The patient awoke from anesthesia without complication and was transferred to the recovery room in a stable condition.
[2024-01-03] MEDS: Lactated Ringers 1,000 ML 30 ML IV (10:20)
--- NOTE | 2024-01-03 10:39 | W.ANESNERVE ---
Nerve Block Single Injection Procedure Date and Time Date Performed: 01/03/24 Procedure Start: :24 Location Where Procedure Performed Procedure Location: Day Surgery Unit Reason Performed: Postoperative Analgesia Requesting Provider: Russell Beavers Timeout Performed Timeout Performed: Yes Monitoring Used ECG, Blood Pressure, SpO2 and ETCO2 Sterility Sterility: Hand Hygiene, Surgical Cap, Surgical Mask, Sterile Gloves and Chlorhexidine Sedation Given During Procedure Sedation Given (Indicate Dose Given): Versed IV Dose:: 2 mg Patient Mental Status Patient Mental Status: Sedate with meaningful communication Nerve Block 1st Nerve Block: Laterality: Right Block Type: Interscalene Ultrasound Image Saved?: Yes Needle / Catheter Used: 100mm SonoPlex II Local Anesthetic Bolus (Indicate Dose Given): Lidocaine used for local infiltration of skin, Bupivacaine 0.5% Dose:: 10 mL and Exparel Dose:: 10 mL Additives (Indicate Dose Given): None Ultrasound: Sterile probe cover and gel used Nerve Stimulator: Supplement to Ultrasound use and No twitch or parasthesia noted < 0.5 mA Paresthesia: None Procedure Tolerated: No Complications Procedure Outcome: Successful Procedure Comment: recommend more midaz in the future. Performed By: Manolo Sebastian
[2024-01-03] MEDS: EPINEPHrine 10 MG/10 ML ML (11:50)
[2024-01-03] MEDS: Bupivacaine 0.25% Pres-Free W/EPI 30 ML VIAL (11:50)
--- NOTE | 2024-01-03 12:40 | W.ANESPOSTOP ---
Postoperative Evaluation Date, Time and Location Date Performed: 01/03/24 Time Performed: 12:40 Patient Location: PACU Vital Signs Most Recent Imported Vital Signs: Most Recent Vital Signs Temp Pulse Resp BP Pulse Ox 36.6 C 77 13 113/49 L 97 01/03/24 12:36 01/03/24 12:36 01/03/24 12:36 01/03/24 12:36 01/03/24 12:36 Pain Score Most Recent Pain Score: Most Recent Pain Score Pain Level 0 01/03/24 12:30 Assessment Mental Status: Awake (Alert & Oriented to Patient Baseline) Airway and Respiratory Function: Patent airway with normal (patient baseline) respiratory exam Cardiovascular Function: Hemodynamically Stable Hydration Status: Adequately Hydrated Nausea & Vomiting: No Nausea or Vomiting Pain: Pain is tolerable per patient Peripheral Nerve Block: Regional nerve block not resolved at time of post operative discharge
== END 2024-01-03 13:45 | disposition home or self-care (01) ==
LOC: SUR 09:10
PROVIDERS: PCP Nurse Practitioner Family; Visit Provider Student in an Organized Health Care Education/Training Program
PROC: (CPT 29827; principal; 2024-01-03 10:45)
DX: M75.01 Adhesive capsulitis of right shoulder (principal); S46.011A Strain of muscle(s) and tendon(s) of the rotator cuff of right shoulder, initial encounter; S43.431A Superior glenoid labrum lesion of right shoulder, initial encounter; X58.XXXA Exposure to other specified factors, initial encounter; L08.9 Local infection of the skin and subcutaneous tissue, unspecified; Z98.890 Other specified postprocedural states; M75.51 Bursitis of right shoulder
CPT/HCPCS: 29823; 23700; 76942; 87070; 87075; 87205; C9290; J0131; J0665; J0690; J1100; J1885; J2250; J2405; J2704

== ENCOUNTER 2024-01-20 11:39 | Emergency (ER) | payer MEDICAID, SELFPAY ==
[2024-01-20] VITALS (14 sets, daily range): BP systolic 125–133; BP diastolic 67–84; PULSE 76–101; RESP 14–17; TEMP 36.2–36.9; O2SAT 93–97
--- NOTE | 2024-01-20 11:45 | DI.CT_ITS ---
Exam(s) CT HEAD WO EXAM: CT HEAD WO CLINICAL HISTORY: Eval mass effect, ICH. TECHNIQUE: Imaging Protocol: Axial computed tomography images with coronal and sagittal reformatted images were created and reviewed COMPARISON: CT CT BRAIN NECK CTA from 03/10/2021 FINDINGS: Ventricles and Extra axial spaces: Normal in size and morphology for the patient's age. Hemorrhage: None. Cerebral parenchyma: No evidence of acute infarct or mass. Midline shift: None. Brainstem/Cerebellum: Cerebellar tonsils project slightly below the foramen magnum. This is unchange d from prior. No mass effect on brainstem. Calvarium: Normal. Visualized Paranasal sinuses:Clear. Mastoids: Clear. Soft Tissues: Unremarkable. ORBITS: Unremarkable. PITUITARY: Not enlarged. IMPRESSION: No acute intracranial process. RADIATION DOSE DELIVERED: Total DLP DATA REPOSITORY: All CT scans at this facility are submitted to the National Radiology Data Registry (NRDR) Dose Index Registry (DIR) with the [employer] (ACR). RADIATION OPTIMIZATION: All CT scans at this facility use at least one of these dose optimization te chniques: automated exposure control; mA and/or kV adjustment per patient size (includes targeted exa ms where dose is matched to clinical indication); or iterative reconstruction.
--- NOTE | 2024-01-20 11:58 | ED.GENADUL_ITS ---
Discharge Plan Disposition Patient Disposition: Home Condition: Stable Discharge Details Clinical Impression: Migraine headache Primary Care Provider: Deepa Rivero ED Provider: Talia Avila Home Meds and New Rx's Prescriptions: No Action acetaminophen 500 mg capsule 500 mg PO TID Qty: 1 0RF amoxicillin 500 mg capsule 500 mg PO TID 30 Days Qty: 90 0RF Rx Instructions: recommend daily probiotic while on antibiotics Bio-K plus 50 billion cell capsule,delayed release(DR/EC) 1 cap PO DAILY Qty: 30 0RF lamotrigine [Lamictal] 100 MG tablet 100 mg PO HS escitalopram oxalate [Lexapro] 10 MG tablet 20 mg PO HS naproxen 250 mg tablet 250 - 500 mg PO BID PRN (Reason: Moderate pain) Qty: 40 0RF oxycodone 5 mg tablet 5 - 10 mg PO Q4H PRN (Reason: Moderate to severe pain) Qty: 18 0RF epinephrine 0.3 mg/0.3 mL auto-injector 0.3 ml IM ONCE PRN Patient Comments: INJECT 0.3MG INTRAMUSCULARLY Discharge Instructions Instructions: Headache, Adult ED Additional Instructions: You were seen in the emergency department today for evaluation of headache. In our department you had a full physical examination performed, had laboratory studies that were reassuring, and had a CT scan of your brain that did not show any abnormalities to suggest a dangerous intracranial cause of your headache. You received a migraine cocktail with good effect, and likely experienced a migraine headache of worsening severity than your typical. I do recommend that you continue any Tylenol or ibuprofen in the home environment that you need, maintain good hydration and nutrition, and reach out to your outpatient providers to discuss next steps in management of any symptoms that change, worsen, or persist. Thank you for allowing us to be part of your care. HPI General Mode of arrival: ambulatory . Date/Time Provider Initiated Documentation: 01/20/24 11:42 . Limitations to Documentation: no limitations . Information obtained by: patient, family and old records reviewed . HPI Narrative: HPI: This is a 43-year-old female patient, with a history of right shoulder injury/pain s/p surgery, complicated by C acnes infection, for which she was recently started on amoxicillin. She is presenting for 3 days of migraine headache. Reports that her headache started gradually the day after she started her antibiotics, states that it is located in the front of her head, worse in severity and duration from her typical headaches. She endorses photophobia, nausea, sensitivity to loud sounds. She has been taking Tylenol and ibuprofen at home without relief. Has tried to take oral caffeine and stay hydrated but endorses difficulty due to her nausea. The patient reports that she is not experiencing any changes in vision, weakness or numbness, changes in her speech, or any other neuro abnormalities. She has not sustained trauma or injury. No fevers or chills. The patient reports that while she recognizes that this headache is very typical for her, though worse than usual, she is most concerned for a space-occupying lesion. Reports no personal history of same. Does not take any blood thinning medications, and states that she did not have any thunderclap quality to her headache. Exam: Gen: Awake and alert, appears uncomfortable HEENT: Non-icteric sclera, pupils are equal and reactive at 3 mm bilaterally, EOMs are full and without nystagmus, conjunctiva not injected. Neck: Supple, full range of motion without meningismus Lungs: No apparent respiratory distress, normal respiratory effort. CV: Appears well perfused, strong distal pulses Abdomen: Non-distended MSK: Moves 4 extremities without apparent limitation in ROM Skin: Visualized skin without rashes, cyanosis. Neuro: Cranial nerves II through XII intact and symmetrical bilaterally, 5 out of 5 strength times all muscle groups with the exception of the right upper extremity, in which testing was deferred due to recent surgery. No sensory changes reported. Psych: Appropriate for situation. MDM: This is a 43-year-old female patient presenting for evaluation of headache. My differential includes but is not limited to migraine headache, tension headache, medication overuse headache. Certainly considered cluster headache though the patient is without parasympathetic changes or characteristic eye redness to suggest same. There was no thunderclap clap like quality nor neurodeficits on my physical examination to significantly increase my concern for SAH, intracranial hemorrhage, intracranial mass or mass effect. The patient is not on any hormonal medications to increase her risk for dural venous sinus thrombosis. No ocular pain or symptoms nor temporal tenderness to increase my concern for GCA, optic neuritis, glaucoma. Given that the patient has taken Tylenol and ibuprofen within the last 1 to 2 hours, I will defer additional medications in these classes. We will obtain an IV and baseline labs to include CBC, CMP, magnesium. Will provide the patient with a liter of IV fluids, a dose of Reglan and Benadryl for initial symptomatic management of her headache, and after shared decision-making conversation with the patient we will proceed with Noncon CT imaging of the head. ED Course: I independently interpreted the laboratory studies, which show no significant leukocytosis, anemia, or thrombocytopenia. The chemistry panel is without evidence of electrolyte abnormality, kidney dysfunction, or liver injury. After the first round of headache medication the patient reports a significant improvement but not resolution. I did provide her with a dose of intravenous magnesium to good effect. CT scan independently interpreted by myself, showing no evidence of intracranial hemorrhage or mass effect. On reassessment the patient endorses improvement in her headache and a desire for discharge to home. I did recommend that she continue taking her amoxicillin in the setting of her orthopedic infection, and recommended discussing any medication changes with her outpatient providers. At this time, the patient has had a full medical evaluation and is safe for discharge to home. They are hemodynamically stable, ambulatory, and tolerating PO. They are understanding of the follow-up plan and return precautions. They left our facility without incident. Talia Avila MD Related Data Home Medications ?Medication ?Instructions ?Recorded ?Confirmed escitalopram oxalate 10 mg tablet 20 mg PO HS 04/05/14 01/20/24 (Lexapro) lamotrigine 100 mg tablet 100 mg PO HS 04/05/14 01/20/24 (Lamictal) acetaminophen 500 mg capsule 500 mg PO TID pain #1 cap 03/28/23 01/20/24 naproxen 250 mg tablet 250 - 500 mg (1 - 2 x 250 mg) PO 01/03/24 01/20/24 BID PRN Moderate pain #40 tabs oxycodone 5 mg tablet 5 - 10 mg (1 - 2 x 5 mg) PO Q4H 01/03/24 01/20/24 PRN Moderate to severe pain #18 tabs L. acidophilus,casei,rhamnosus 50 1 cap PO DAILY #30 caps 01/16/24 01/20/24 billion cell capsule,delayed release (Bio-K plus) amoxicillin 500 mg capsule 500 mg PO TID c.acnes infection 30 01/16/24 01/20/24 days #90 caps epinephrine 0.3 mg/0.3 mL 0.3 ml IM ONCE PRN 01/20/24 01/20/24 injection, auto-injector Previous Rx's ?Medication ?Instructions ?Recorded acetaminophen 500 mg capsule 500 mg PO TID pain #1 cap 03/28/23 naproxen 250 mg tablet 250 - 500 mg (1 - 2 x 250 mg) PO 01/03/24 BID PRN Moderate pain #40 tabs oxycodone 5 mg tablet 5 - 10 mg (1 - 2 x 5 mg) PO Q4H 01/03/24 PRN Moderate to severe pain #18 tabs L. acidophilus,casei,rhamnosus 50 1 cap PO DAILY #30 caps 01/16/24 billion cell capsule,delayed release (Bio-K plus) amoxicillin 500 mg capsule 500 mg PO TID c.acnes infection 30 01/16/24 days #90 caps Allergies Allergy/AdvReac Type Severity Reaction Status Date / Time shellfish derived Allergy Intermediate TIGHTNESS Verified 01/20/24 11:44 IN THROAT/EAR RED AND HOT Sulfa (Sulfonamide Allergy Intermediate VOMITING Verified 01/20/24 11:44 Antibiotics) AND RASH Penicillins AdvReac VOMITING Verified 01/20/24 11:44 General Stated Complaint: Headache MK: 3 Course Vital Signs Vital signs: Vital Signs Temperature 36.9 C 01/20/24 11:40 Pulse 101 H 01/20/24 11:40 Respiratory Rate 15 01/20/24 11:40 Blood Pressure 133/84 01/20/24 11:40 Pulse Oximetry 97 01/20/24 11:40 Temperature 36.9 C 01/20/24 11:40 Temperature Source Tympanic 01/20/24 11:40 Pulse 101 H 01/20/24 11:40 Respiratory Rate 15 01/20/24 11:40 Blood Pressure 133/84 01/20/24 11:40 Pulse Oximetry 97 01/20/24 11:40 Oxygen Delivery Method Room Air 01/20/24 11:40 Oxygen Flow Rate 0 01/20/24 11:40 Pain Level 8 01/20/24 11:50 Comment worse SNYDER she has ever had 01/20/24 11:40 Medical Decision Making Quality:SDOH Health Related Social Needs: No Data to Display PFSH All Active Problems (Updated 01/20/24 @ 13:51 by Talia Avila MD) Migraine headache (Chronic) Adhesive capsulitis of right shoulder (Acute) Traumatic tear of right rotator cuff (Acute ~01/2023) SLAP lesion of right shoulder (Acute) Vertigo (Acute) Medical History Iliotibial band syndrome of left side Depression Surgical History History of endometrial ablation Trochanteric bursitis of left hip S/P endoscopic debridement with IT band lengthenin02/10/2022 Labral tear of left hip joint S/P treatment: 02/10/2022 Social History Smoking/Tobacco Use Status: Current every day Tobacco Type: e-cigarettes Smoking risk assessment performed?: Yes Alcohol Intake: never Drug use: Never Substance use type: does not use Housing: house Current gender identity: female Do you feel safe at home: Yes Do you feel safe in your relationship?: Yes
[2024-01-20 12:21] LABS: Abs Immature Grans 0.04 10^3/uL (0.0-0.06); Absolute Basophil Count 0.02 10^3/uL (0.0-0.2); Absolute Eosinophil Count 0.13 10^3/uL (0.0-0.7); Absolute Lymphocyte Count 1.84 10^3/uL (1.2-3.4); Absolute Neutrophil Count 3.02 10^3/uL (1.2-6.7); Basophils % 0.4 %; Eosinophils % 2.5 %; HCT 37.2 % (36.0-46.0); HGB 12.5 g/dL (11.2-15.7); Immature Grans % 0.8 %; MCH 30.3 pg (27.0-33.0); MCHC 33.6 % (32.0-36.0); MCV 90 fL (80-95); MPV 9.9 fL (8.0-11.0); Monocytes % 3.8 %; Neutrophils % 57.5 %; Platelet Count 221 10^3/uL (130-400); RBC 4.13 10^6/uL (3.93-5.22); RDW 12.5 % (11.7-14.6); RDW-SD 40.8 fL; WBC 5.25 10^3/uL (4.4-10.8)
[2024-01-20] MEDS: Lactated Ringers 1,000 ML 1000 ML IV (12:22)
[2024-01-20] MEDS: diphenhydrAMINE 50 MG/ML VIAL IVP (12:23)
[2024-01-20] MEDS: Metoclopramide 10 MG/2 ML VIAL IVP (12:25)
[2024-01-20 12:37] LABS: ALT 44 U/L (14-59); AST 24 U/L (15-37); Albumin 3.5 g/dL (3.4-5.0); Alkaline Phosphatase 97 U/L (46-116); Anion Gap 6.8 mmol/L (3-11); BUN 13 mg/dL (7-18); Bilirubin, Total 0.41 mg/dL (0.2-1.0); CO2 29.2 mmol/L (21.0-32.0); CREATININE 0.9 mg/dL (0.55-1.02); Calcium 8.5 mg/dL (8.5-10.1); Chloride 105 mmol/L (98-107); Estimated GFR 82.37 (mL/min/1.73m2); Glucose 104 mg/dL (74-106); Magnesium 1.8 mg/dL (1.8-2.4); Potassium 4.1 mmol/L (3.5-5.1); Sodium 141 mmol/L (136-145); Total Protein 6.9 g/dL (6.4-8.2)
[2024-01-20] MEDS: MAGNESIUM SULFATE 2 GM/50 ML BAG IVINF (13:05)
--- NOTE | 2024-01-20 13:47 | DI.VRAD_ITS ---
PROCEDURE INFORMATION: Exam: CT Head Without Contrast Exam date and time: 01/20/2024 12:42 PM Age: 43 years old Clinical indication: Other: Eval mass effect, ich TECHNIQUE: Imaging protocol: Computed tomography of the head without contrast. There is no reconstruction provided. COMPARISON: CT BRAIN NECK CTA 03/10/2021 8:12 AM FINDINGS: Brain: Solano-white matter differentiation is within normal limits. There is no mass effect or midline shift. There is no intracranial hemorrhage. Sulci and basal cisterns are within normal limits. There is no extra-axial fluid collection. Cerebellar tonsils are mildly low-lying, unchanged. Cerebral ventricles: No ventriculomegaly. Paranasal sinuses: Mild mucosal thickening in the left maxillary sinus. Mastoid air cells: Visualized mastoid air cells are well aerated. Nasal cavity: There is gosy-wi-rutas nasal septal deviation. Bones: Unremarkable. No acute fracture. Soft tissues: Unremarkable. IMPRESSION: No acute intracranial abnormality. Dictated and Authenticated by: George Mccracken MD. Ordering:GEORGE Estevez MD
== END 2024-01-20 14:09 | disposition home or self-care (01) ==
PROVIDERS: Emergency Provider Emergency Medicine; PCP Nurse Practitioner Family
DX: G43.909 Migraine, unspecified, not intractable, without status migrainosus (principal)
CPT/HCPCS: 36415; 80053; 96365; 96375; 99284; 70450; 83735; 85025; 99283; J1200; J2765; J3475

== ENCOUNTER 2024-05-01 00:05 | Outpatient (CLI) | payer OTHER, SELFPAY ==
--- OUTSIDE RECORDS SUMMARY | 2024-05-01 00:07 | XMS_ITS | Encounter Summary ---
Author Organization [facility] Address [address] [place] [address] Care Team Providers Care Ex Assistant/Program Director Name Role Phone None, Provider Primary Care Provider Unavailabl e Encounter Details Date Type Department Care Team (Late st Contact Info) Description 08/06/2012 Results Only [facility] Laboratory Services - [facility] ([facility] [address], [place] [id number] Tucker Chavira MD [address] [place] [address] Social History Tobacco Use Types Packs/Day Years Used Date Smoking Tobacco: Never Assessed Comments Unknown Sex and Gender Information Value Date Recorded Sex Assigned at Not on file Legal Sex Female 18:26 EST Gender Identity Not on file Sexual Orientation Not on file documented as of this encounter Plan of Treatment Not on file documented as of this encounter Procedures Procedure Name Priority Date/Time Associated Diagnosis Comments SURGICAL PATHOLOGY Routine 08/06/2012 9:27 EDT documented in this encounter Results * SURGICAL PATHOLOGY (08/06/2012 9:27 EDT) Pathology Report: SURGICAL PATHOLOGY REPORT Reports generated via electronic interface contain original data; however they are lacking the format of the original report. Caution should be taken when reading/interpreting unformatted reports. Name: ? ANISHA MARTIN ? Accession #: ? [id number] ? : ? 1980 (Age: 32) ??F ? Collect Date: ? 08/06/2012 ? Location: ? [facility] ? Receive Date: ? 08/07/2012 ? Provider: TUCKER CHAVIRA MD Copy to: ? Final Pathologic Diagnosis: ? 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 ??See comment. Comment: ? Immunohistochemical staining (see below) confirms the above morphological interpretation. ??Positive and negative controls stained appropriately. (Dr. Lazar)/sarahn ? Block ?Antibody (Clone) ? Result ?P16 ([facility]) ? high grade pattern ?MiB-1 ([facility]) ? high grade pattern NOTE: ??One or more of the reagents used in immunohistochemical testing in this case may not have been cleared or approved by the U.S. Food and Drug Administration (FDA). ??The FDA has determined that such clearance or approval is not necessary. ??These tests are used for clinical purposes. ??They should not be regarded as investigational or for research. ??These reagents' performance characteristics have been determined by [facility]. ??This laboratory is certified under the Clinical Laboratory Improvement Amendments of 1988 (CLIA-88) as qualified to perform high complexity clinical laboratory testing. ?? Document reviewed and electronically signed by: LIANA SANDERS MBCHB Report ??Date: 08/09/2012 11:47 By the signature above, the attending physician certifies that he/she has personally conducted a gross and/or microscopic examination of the described specimens and rendered or confirmed the above diagnosis. Specimen(s) Received: ? 4 o'clock ectocervix Clinical History: ? Hx of LEEP ERIK II-III 12/2011, involved endocx margin; Pap (+) ECC; 2012 ECC (-); Pap [facility] SPECIALIST FIELD ENGINEER [facility] Gross Description: ? Received in formalin labelled [place], Anisha and cx 4 o'clock is a mchugh-white irregular soft tissue fragment measuring 0.2 x 0.2 x 0.1 cm. ??The specimen is entirely submitted as (1). ??(Karen Joshi)/martin End of Report [facility] 08/06/2012 9:27 EDT 08/07/2012 9:27 EDT us Tucker Chavira MD PATHOLOGY ORDERABLES Final Re sult [facility] [address] [place] [address] documented in this encounter Visit Diagnoses Not on filedocumented in this encounter Care Teams Ex Assistant/Program Director Relationship Specialty Start Date End Date None, Provider PCP - General 11/30/11 03/11/14 documented as of this encounter
--- OUTSIDE RECORDS SUMMARY | 2024-05-01 00:07 | XMS_ITS | Encounter Summary ---
Author Organization [facility] Address [address] [place] [address] Care Team Providers Care Project Controller Name Role Phone Deisy Pressley APRN Primary Care Provider + Deisy Pressley APRN Primary Care Provider + Encounter Details Date Type Department Care Team (Late st Contact Info) Description 06/22/2004 Results Only [facility] - Maple conversion [address] [place] [address] Unknown, Provider, Social History Tobacco Use Types Packs/Day Years [...] Procedure Name Priority Date/Time Associated Diagnosis Comments N. GONORRHOEAE AMPLIFIED PROBE Routine 06/22/2004 20:07 EST ZZCHLAMYDIA TRACHOMATIS AMPLIFIED PROBE Routine 06/22/2004 20:07 EST HEPATITIS B SURFACE ANTIGEN Routine 06/22/2004 11:52 EST documented in this encounter Results * CHLAMYDIA TRACHOMATIS AMPLIFIED PROBE (06/22/2004 20:07 EST) Specimen Description Urine [facility] Result No Chlamydia trachomatis DNA detected by diesel maintenance technician mediated amplification. [facility] Report Status Final [id number] [facility] 06/22/2004 20:0 7 EST 06/23/2004 12:06 EST us Provider Unknown MICROBIOLOGY - GENERAL ORDER BEN Final Result Performing Organization Address City/[facility]/ZIP Co de Phone Number [facility] [address] [place] [address] * N. GONORRHOEAE AMPLIFIED PROBE (06/22/2004 20:07 EST) Result No Neisseria gonorrhoeae DNA detected by diesel maintenance technician mediated amplification. [facility] Report Status Final [id number] [facility] Specimen Description Urine [facility] 06/22/2004 20:0 7 EST 06/23/2004 11:58 EST Provider Unknown MICROBIOLOGY - GENERAL ORDER BEN Final Result Performing Organization Address [facility] Co de Phone Number [facility] [address] [place] [address] * HEPATITIS B SURFACE ANTIGEN (06/22/2004 11:52 EST) Hepatitis B Surface Ag Neg [facility] 06/22/2004 11:5 2 EST 06/22/2004 22:01 EST us Provider Unknown CHEMISTRY & BLOOD GAS ORDERA BLES Final Result Performing Organization Address [facility] Co de Phone Number [facility] [address] [place] [address] documented in this encounter Visit Diagnoses Not on filedocumented in this encounter Care Teams Project Controller Relationship Specialty Start Date End Date Deisy Pressley APRN [address] [place] [phone] PCP - General 02/24/09 11/29/11 Deisy Pressley APRN [address] [place] [phone] PCP - General 11/24/08 02/23/09 documented as of this encounter
--- OUTSIDE RECORDS SUMMARY | 2024-05-01 00:07 | XMS_ITS | Encounter Summary ---
Author Organization [facility] Address [address] [place] [address] Care Team Providers Care Reeling Machine Operator Name Role Phone Abdon Pressleyeen Desi FERRERA Primary Care Provider + None, Provider Primary Care Provider Stephani Rivas Primary Care Provider Encounter Details Date Type Department Care Team (Late st Contact Info) Description 01/04/2011 Historical Results Only [facility] - Main [place] [address] [place] [address] Aamir Barone DO [address] [facility], [address] [place] [address] Social History Tobacco Use Types Packs/Day Years [...] Procedure Name Priority Date/Time Associated Diagnosis Comments PAP TEST Routine 01/04/2011 SURGICAL PATHOLOGY Routine 01/04/2011 documented in this encounter Results * PAP TEST (01/04/2011) 01/04/2011 01/04/2011 19: 06 EDT Narrative [facility] - 01/13/2011 10:45 EDT ----- ------- Name: ANISHA SMALL ?: [birth year] ?Age/Sex: 38/F ?Unit#: [id number] ? Loc: AGO ? Status: REG POV ?? Reg Date: 01/04/11 ? Pt.Phone Number: ? ----- ------- Specimen: [id number] ?STATUS: SOUT ?Spec Date:01/04/11 ? Physician Copies: ?Aamir Barone DO Tissues: ? Cervical/Endo Pap ?Paulina Oglesby ??DO N CPT: 33166 ?? Units: ??1 ----- ------- ? CYTOLOGY DIAGNOSIS SPECIMEN ADEQUACY: ?Satisfactory for evaluation. Transformation zone component present. GENERAL CATEGORIZATION: ?Epithelial Cell Abnormality. DESCRIPTIVE DIAGNOSIS: ?Squamous Cell Abnormality - ??Low grade squamous intraepithelial lesion - Cannot exclude High grade LUIS (LSIL-H). RECOMMENDATIONS/COMMENTS: ??Recommend following the 2006 Consensus Guidelines for the Management of ??Women with Cervical Cytologic Abnormalities. ??Management algorithms have been distributed and are also available online at www.ASCCP.org/consensus.shtml. 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 ??In addition, rare cells with high nuclear to cytoplasmic ratios and irregular hyperchromatic nuclei raise suspicion for a high grade lesion. ----- ------- ORDER QUERIES: LMP: 11/22/10- WNL ? N Post ? N ??PREVIOUS ATYPICAL: Y BCP/HRT? N Rad Rx? N IUD? N ??PAP PLUS HPV? N ??REFLEX TO HR-HPV IF ASCUS ?? REFLEX TO HPV 16/18 IF HPV POS/PAP NEG ?? HPV REGARDLESS?RFLX HPV IF LSIL ?? IF ASCUS DO HPV? N Signed ____(signature on file)____ Kaylene Rai M.D. 01/13/11 By the signature above, the attending physician certifies that he/she has personally conducted a gross and/or microscopic examination of the described specimens and rendered or confirmed the above diagnosis. Test Performed by [facility], [address] [address] General Manager Land Department: Kaylene Rai MD PHD ----- ------- us Aamir Barone DO PATHOLOGY ORDERABLES Final Res ult [facility] * SURGICAL PATHOLOGY (01/04/2011) 01/04/2011 01/04/2011 16: 41 EDT Narrative [facility] - 01/05/2011 11:26 EDT PREOP LGSIL Procedure: COLPO Tissue Removed ECC AND CERVICAL BIOPSY @ 5 OCLOCK LMP: Prev.Abn Pap: 11/22/10 ----- ------- Name: ANISHA SMALL ?: [birth year] ?Age/Sex: 38/F ?Unit#: [id number] ? Loc: AGO ? Status: REG POV ?? Reg Date: 01/04/11 ? Pt.Phone Number: ? ----- ------- Specimen: [id number] ? STATUS: SOUT ?Spec Date:01/04/11 ? Physician Copies: ?Aamir Barone DO Tissues: A ?? Female Reproductive System (ENDOCERVIX) ?Paulina Oglesby ??DO N ? B ?? Female Reproductive System (CERVIX @ 5 O'CLOCK) ? CPT: 39078 ?? Units: ??2 ?FINAL DIAGNOSIS ? A. Endocervix, curettage; ? - Tiny piece of atypical squamous epithelium, compatible with mild dysplasia. ? B. Cervix, 5 o'clock, biopsy; ? - Low grade squamous intraepithelial lesion (ERIK I). ----- ------- ?COMMENT ? Biopsy findings correlate with the referring LSIL Pap ([id number]). ? GROSS DESCRIPTION ? A. Received in formalin labeled with the patient's name and ECC is an ? estimated less than 0.1 cc aggregate of minute rasheed tissue flecks, filtered, ? e.s. 1. ? B. Received in formalin labeled with the patient's name and cervical bx 5 ? o'clock is a 0.2 cm piece of translucent rasheed-mchugh tissue, e.s. 1. CP ?? PREOP DX/CLINICAL HISTORY ?LGSIL Signed ____(signature on file)____ Kaylene Rai M.D. 01/05/11 By the signature above, the attending physician certifies that he/she has personally conducted a gross and/or microscopic examination of the described specimens and rendered or confirmed the above diagnosis. Test Performed by [facility], [address] [place] [id number] General Manager Land Department: Kaylene Rai MD PHD ----- ------- us Aamir Barone DO PATHOLOGY ORDERABLES Final Res ult [facility] documented in this encounter Visit Diagnoses Not on filedocumented in this encounter Care Teams Reeling Machine Operator Relationship Specialty Start Date End Date Deisy Pressley, MAISHA [address] [place] [phone] PCP - General 02/24/09 11/29/11 None, Provider PCP - General 11/30/11 03/11/14 Stephani Kuhn PA [address] [place] [phone] PCP - General 03/12/14 documented as of this encounter
--- OUTSIDE RECORDS SUMMARY | 2024-05-01 00:07 | XMS_ITS | Encounter Summary ---
Author Organization [facility] [place] [address] Care Team Providers Care Engagement Lead Name Role Phone Unknown Primary Care Provider Unavailabl e Encounter Details Date Type Department Care Team (Latest Contact Info) Description 03/12/2024 10:30 AM EST Office [place] [phone] Ros Barrera MD [facility] [place] [address] Joint infection; Infection due to Cutibacterium species; Traumatic tear of right rotator cuff, unspecified tear extent, sequela; Encounter for medication monitoring; High risk medication use Social History Tobacco Use Types Packs/Day Years Used Date Smoking Tobacco: Former Smokeless Tobacco: Never Sex and Gender Information Value Date Recorded Sex Assigned at Not on file Gender Identity Not on file Sexual Orientation Not on file documented as of this encounter Last Filed Vital Signs Vital Sign Reading Time Taken Comments Blood Pressure 141/77 03/12/2024 10:37 AM EST Pulse 94 03/12/2024 10:37 AM EST Temperature 36.9 ??C (98.4 ??F) 03/12/2024 1 0:37 AM EST Respiratory Rate 16 03/12/2024 10:3 7 AM EST Oxygen Saturation 98% 03/12/2024 10: 37 AM EST Inhaled Oxygen Concentration - - Weight 107.3 kg (236 lb 9.6 oz) 024 10:37 AM EST Height 157.5 cm (5' 2.01) 03/12/2024 1 0:37 AM EST Body Mass Index 43.26 03/12/2024 10:37 AM EST documented in this encounter Progress Notes * Ros Barrera MD - 03/12/2024 10:30 AM EST INFECTIOUS DISEASE CLINIC - OUTPATIENT FOLLOW-UP NOTE History of Present Illness: A 43-year-old female with a history of right rotator cuff tear and prior arthroscopic biceps tendinitis (Jun 2023) underwent a second shoulder revision arthroscopy in Dec 2023 with extensive debridement. Joint cultures from 12/29/2023 grew Cutibacterium acnes. She was initially started on amoxicillin but developed a rash and was switched to clindamycin on 01/29, which she completed for 7 days. Fromher 01/03/2024 operative note: findings included significant anterior capsulitis, adhesions, and synovitis, consistent with adhesive capsulitis, with no overt signs of infection. Attempts to obtain susceptibility data from [facility] lab were unsuccessful, as the Cutibacterium acnes sample was discarded after one month. No further surgery is planned. An anchor suture (calcium-composite) was placed in December alongside a calcified screw from her June surgery, as per discussion with orthopedic Dr. Beavers. The patient was seen one month ago in the ID clinic and was recommended to start cefadroxil and rifampin for her shoulder infection. Subjective: Today, her pain is less compared to one month ago, currently rated at 6/10. She is taking 600 mg 1-2 times daily and Tylenol 1 g daily. Range of motion is improving during physical therapy. She reports diarrhea 3-4 times daily with soft stools since starting rifampin, and she has skin itching without a rash. She believes this may be due to the antibiotics. ROS: 14 point ROS (-) except as above Physical Exam General: NAD Head: NCAT EENT: No conjunctival petechiae Neck: No LAD Cardiovascular: RRR -m/r/g Pulmonary: Lungs CTAB easy WOB Abdomen: Soft, NT/ND Ext: mild tenderness on the right shoulder palpation, decreased ROM due to pain Skin: No rash on visible skin Neuro: A&O, moves all 4 Psych: Euthymic, pleasant Assessment/Plan: A 43-year-old female with a history of right rotator cuff tear and biceps tendinitis (Jun 2023) underwent a second shoulder revision in Dec 2023 for extensive debridement and rotator cuff repair. Joint cultures grew Cutibacterium acnes. She initially started on amoxicillin but switched to clindamycin due to a rash, completing 7 days. Operative findings on 01/03/2024 showed anterior capsulitis and synovitis, consistent with adhesive capsulitis, without overt infection. Orthopedics placed a new anchor suture and identified a calcified screw from prior surgery. She was recommended to start cefadroxil and rifampin in our clinic one month ago. Today, she reports less pain (6/10) and improved range of motion with physical therapy, showing slow clinical improvement. She notes diarrhea and itching, likely due to rifampin. We had a detailed discussion with the patient, explaining that a two-agent regimen is one possible treatment option. If she cannot tolerate it, she could continue with cefadroxil alone, which is alsoan acceptable regimen for PJI treatment. The patient believes she can tolerate the side effects andprefers to continue both medications, which we support as well. She will need to continue with Cefadroxil for at list 2 more months and can stop or continue with Rifampin if tolerate it. We will check CBC, CMP, and CRP today and follow up with her in 6 weeks. Recommendations: -We recommend continuing cefadroxil 1 g BID and rifampin 300 mg BID if she can tolerate it. She needs to continue cefadroxil for at least 2 more months. She may stop rifampin if the side effects become too severe. -We will check CRP, CBC, and CMP today and follow up on results. -Follow up with the orthopedic team and physical therapy. Ros Barrera MD Infectious Diseases Fellow Pager: [phone] 03/12/2024 7:47 AM Plan discussed with Dr. Martines This note was created using [employer] voice recognition software. * Charles Martines MD - 03/12/2024 10:30 AM EST Attending Addendum: I have seen and examined the patient, reviewed the data and agree with the note by Dr. Barrera. Discussed the relative benefit of rifampin and her intolerance, not much data in this instance. It would be OK to stop the rifampin and continue the cefadroxil. Toxicity labs look fine. documented in this encounter Plan of Treatment Upcoming Encounters Date Type Department Care Team (Late st Contact Info) Description 05/14/2024 11:30 AM EST Office [place] [phone] Charles Martines MD [facility] [address] [place] [address] documented as of this encounter Results * (ABNORMAL) CRP, acute inflammation (03/12/2024 11:44 AM EST) C-Reactive Protein 14.2(H) <=4.9 mg/L 03/12/2024 12:38 PM EST [facility] Blood VENOUS BLOOD SPECIMEN / Unknown Venipuncture / Unknown 03/12/2024 11:44 AM EST 03/12/2024 11:44 AM EST Charles Martines MD CHEMISTRY ORDERAB LES [facility] [place] [address] * (ABNORMAL) Comprehensive metabolic panel Non-fasting (03/12/2024 11:44 AM EST) Glucose 85 65 - 199 mg/dL 03/12/2024 12:38 PM EST [facility] Comment:Glucose Concentratio n >=200 mg/dL plus symptoms is consistent with Diabetes Mellitus. Blood Urea Nitrogen 10 8 - 18 mg/dL 03/12/2024 12:38 PM EST [facility] Creatinine 0.74 0.70 - 1.20 mg/dL 03/12/2024 12:38 PM EST [facility] Sodium 140 135 - 145 mMol/L 03/12/2024 12:38 PM [facility] Potassium 4.2 3.5 - 5.0 mMol/L 03/12/2024 12:38 PM [facility] Chloride 106 98 - 107 mMol/L 03/12/2024 12:38 PM [facility] Carbon Dioxide 24 22 - 31 mMol/L 03/12/2024 12:38 PM [facility] Anion Gap 10 5 - 15 mMol/L 03/12/2024 12:38 PM [facility] Calcium 9.2 8.5 - 10.5 mg/dL 03/12/2024 12:38 PM [facility] Protein, Total 7.2 6.1 - 8.0 g/dL 03/12/2024 12:38 PM [facility] Albumin 4.2 3.2 - 5.2 g/dL 03/12/2024 12:38 PM [facility] Aspartate Aminotransferase 18 <=30 unit/L 03/12/2024 12:38 PM [facility] Alanine Aminotransferase 26 0 - 30 unit/L 03/12/2024 12:38 PM [facility] Alkaline Phosphatase 109(H) 35 - 105 unit/L 03/12/2024 12:38 PM [facility] Bilirubin, Total 0.2 <=1.3 mg/dL 03/12/2024 12:38 PM [facility] Est Glomerular Filtration Rate - Female 104 mL/min/1. 73 m?? 03/12/2024 12:38 PM [facility] Comment: This patient's estimated GFR was calculated using the 2020 CKD-EPI equation. The estimated GFR can vary from the measured GFR by up to 30% in the absence of rapidly changing kidney function. Assessment of the estimated GFR is not appropriate when creatinine concentrations are rapidly changing. For clinical situations in which a more precise estimate of GFR is necessary, consider alternative methods of GFR estimation such as a 24-hour urine creatinine clearance. Assignment of CKD stage 1 - 5 for patients with an eGFR near the transition point between stages may be based on clinical assessment of muscle mass and symptoms in addition to eGFR. Link: eGFR Calculator [employer] Fasting Status No 03/12/2024 12:38 PM [facility] Blood VENOUS BLOOD SPECIMEN / Unknown Venipuncture / Unknown 03/12/2024 11:44 AM EST 03/12/2024 11:44 AM EST Charles Martines MD CHEMISTRY ORDERAB LES [facility] [place] [address] * CBC (with Diff) (03/12/2024 11:44 AM EST) White Blood Cell 7.53 4.00 - 9.50 x10(3)/mcL 03/12/2024 11:59 AM [facility] Red Blood Cell 4.29 4.00 - 5.21 x10(6)/mcL 03/12/2024 11:59 AM [facility] Hemoglobin 12.6 11.7 - 15.5 g/dL 03/12/2024 11:59 AM [facility] Hematocrit 37.4 35.7 - 45.8 % 03/12/2024 11:59 AM [facility] Mean Cell Volume 87.2 82.6 - 94.4 fL 03/12/2024 11:59 AM [facility] Mean Cell Hemoglobin 29.4 27.1 - 32.0 pg 03/12/2024 11:59 AM [facility] Mean Cell Hemoglobin Concentration 33.7 31.7 - 35.0 g/dL 03/12/2024 11:59 AM [facility] Platelet 229 145 - 357 x10(3)/mcL 03/12/2024 11:59 AM [facility] Mean Platelet Volume 10.0 7.6 - 12.9 fL 03/12/2024 11:59 AM [facility] RDW Standard Deviation 41.1 37.0 - 46.0 fL 03/12/2024 11:59 AM [facility] RDW coefficient of variation 13.2 11.5 - 14.1 % 03/12/2024 11:59 AM [facility] NRBC% auto 0.0 % 03/12/2024 11:59 AM [facility] NRBC Absolute <0.01 <0.01 x10(3)/mcL 03/12/2024 11:59 AM [facility] Neutrophil % 65.3 % 03/12/2024 11:59 AM [facility] Neutrophil Absolute (ANC) - Automated 4.92 1.70 - 6.10 x10(3)/mcL 03/12/2024 11:59 AM [facility] Lymph % 26.3 % 03/12/2024 11:59 AM [facility] Lymph Absolute 1.98 0.90 - 3.20 x10(3)/mcL 03/12/2024 11:59 AM [facility] Monocyte % 5.2 % 03/12/2024 11:59 AM [facility] Monocyte Absolute 0.39 0.30 - 0.90 x10(3)/mcL 03/12/2024 11:59 AM [facility] Eos % 2.4 % 03/12/2024 11:59 AM [facility] Eos Absolute 0.18 0.00 - 0.40 x10(3)/mcL 03/12/2024 11:59 AM [facility] Basophil % 0.3 % 03/12/2024 11:59 AM [facility] Baso Absolute <0.04 0.00 - 0.10 x10(3)/mcL 03/12/2024 11:59 AM [facility] Immature Gran % 0.5 % 11:59 AM [facility] Immature Gran Absolute 0.04 0.00 - 0.04 x10(3)/mcL 03/12/2024 11:59 AM [facility] Blood VENOUS BLOOD SPECIMEN / Unknown Venipuncture / Unknown 03/12/2024 11:44 AM EST 03/12/2024 11:44 AM EST Charles Martines MD HEMATOLOGY ORDERA BLES Performing Organization Address City/State/[facility] [place] [address] documented in this encounter Visit Diagnoses Diagnosis Joint infection Unspecified infective arthritis, multiple sites Infection due to Cutibacterium species Traumatic tear of right rotator cuff, unspecified tear extent, sequela Encounter for medication monitoring Encounter for therapeutic drug monitoring High risk medication use Encounter for long-term (current) use of other medications documented in this encounter Care Teams Engagement Lead Relationship Specialty Start Date End Date Unknown None PCP - General 04/17/23 documented as of this encounter
--- OUTSIDE RECORDS SUMMARY | 2024-05-01 00:07 | XMS_ITS | Encounter Summary ---
Author Organization [facility] Address [address] [place] [address] Care Team Providers Care Tin Flipper Name Role Phone Deisy Pressley APRN Primary Care Provider + Deisy Pressley APRN Primary Care Provider + Encounter Details Date Type Department Care Team (Late st Contact Info) Description 08/07/2000 Results Only [facility] - Maple conversion [address] [place] [address] Ale Davalos FNP [address] [place], [place] [id number] Social History Tobacco Use Types Packs/Day Years [...] Procedure Name Priority Date/Time Associated Diagnosis Comments CYTOPATHOLOGY Routine 08/07/2000 0:00 EDT documented in this encounter Results * CYTOPATHOLOGY (08/07/2000 0:00 EDT) Pathology Report: CYTOPATHOLOGY REPORT Reports generated via electronic interface contain original data; however they are lacking the format of the original report. Caution should be taken when reading/interpreti ng unformatted reports. Name: ? ANISHA SMALL ? Accession #: ? [id number] : ? 1980 (Age: 20) ??F ?Collect Date: ? 08/07/2000 Location: ? [facility] ? Receive Date: ? 08/09/2000 Provider: ?ALE DAVALOS [employer] Copy to: ? Specimen/Source: ?Conventional Pap Test, Cervix/Endocervix Last Menstrual Period: ? 07/30/00 Hormonal/Contracep tive Status: ? Yes ? SPECIMEN ADEQUACY ? Satisfactory for evaluation. GENERAL CATEGORIZATION ? Within Normal Limits ? Document reviewed and electronically signed by: ? MARY Navarrete(ASCP) ? Report Date: ??08/09/2000 15:57 End of Report BOB [facility]COL[facility] 08/07/2000 08/09/2000 us Ale GARCIA PATHOLOGY ORDERABLES Final Resul t Performing Organization Address City/State/[facility] Co de Phone Number BOB MALCOLM [address] [place] [address] documented in this encounter Visit Diagnoses Not on filedocumented in this encounter Care Teams Tin Flipper Relationship Specialty Start Date End Date Deisy Pressley APRN [address] [place] [phone] PCP - General 02/24/09 11/29/11 Deisy Pressley APRN [address] [place] [phone] PCP - General 11/24/08 02/23/09 documented as of this encounter
--- OUTSIDE RECORDS SUMMARY | 2024-05-01 00:07 | XMS_ITS | Encounter Summary ---
Author Organization [facility] Address [address] [place] [address] Care Team Providers Care Photographic Aide Name Role Phone Stephani Kuhn Primary Care Provider [phone] Encounter Details Date Type Department Care Team (Late st Contact Info) Description 09/14/2020 Lab Requisition [facility] Pathology & Laboratory Medicine - [facility] [address] [place] [address] Outr Resulting Lab, Provider Social History Tobacco Use Types Packs/Day Years [...] Procedure Name Priority Date/Time Associated Diagnosis Comments HOLD SST Today 09/13/2020 15:12 EDT HOLD SST Today 09/13/2020 15:12 EDT HOLD SST Today 09/13/2020 15:12 EDT HOLD SST Today 09/13/2020 15:12 EDT MEASLES IGG AB Today 09/13/2020 15:12 EDT RUBELLA IGG ANTIBODY Today 09/13/2020 15:12 EDT HEPATITIS B SURFACE ANTIBODY Today 09/13/2020 15:12 EDT VARICELLA IGG ANTIBODY Today 09/13/2020 15:12 EDT MUMPS ANTIBODY IGG Today 09/13/2020 15 :12 EDT documented in this encounter Results * HOLD SST (09/13/2020 15:12 EDT) Hold Hold 09/14/2020 17:45 EDT [facility] Blood VENOUS BLOOD / Unknown 09/13/2020 15:12 EDT 09/14/2020 16:43 EDT us Provider Outr Resulting Lab LAB INFO SERVICE AND SUPPORT & PHONE RESULT Final Result Performing Organization Address City/[facility]/ZIP Co de Phone Number [facility] [address] [place] [phone] * HOLD SST (09/13/2020 15:12 EDT) Hold Hold 09/14/2020 17:45 EDT [facility] Blood VENOUS BLOOD / Unknown 09/13/2020 15:12 EDT 09/14/2020 16:43 EDT us Provider Outr Resulting Lab LAB INFO SERVICE AND SUPPORT & PHONE RESULT Final Result [facility] [address] [place] [address] * HOLD SST (09/13/2020 15:12 EDT) Hold Hold 09/14/2020 17:45 EDT [facility] Blood VENOUS BLOOD / Unknown 09/13/2020 15:12 EDT 09/14/2020 16:43 EDT us Provider Outr Resulting Lab LAB INFO SERVICE AND SUPPORT & PHONE RESULT Final Result [facility] [address] [place] [address] * HOLD SST (09/13/2020 15:12 EDT) Hold Hold 09/14/2020 17:45 EDT [facility] Blood VENOUS BLOOD / Unknown 09/13/2020 15:12 EDT 09/14/2020 16:43 EDT us Provider Outr Resulting Lab LAB INFO SERVICE AND SUPPORT & PHONE RESULT Final Result [facility] [address] [place] [address] * HEPATITIS B SURFACE ANTIBODY (09/13/2020 15:12 EDT) Pathologist [facility] Hep B Surface Ab, Quantitative 939.2 See Note mIU/mL 09/15/2020 10:12 EDT [facility] Comment: Reference Range for Hep B Surface Ab, Quant: Positive: >= 10.0 mIU/mL Negative: ??< 10.0 mIU/mL Patient is presumed to be immune to infection with Hepatitis B Virus. Hep B Surface Ab, Qualitative Positive See Note 09/15/2020 10:12 EDT [facility] Comment: Reference Range for Hep B Surface Ab, Qual: Unvaccinated: ??Negative Vaccinated: ??Positive Blood VENOUS BLOOD / Unknown 09/13/2020 15:12 EDT 09/14/2020 16:42 EDT us Provider Outr Resulting Lab CHEMISTRY & BLOOD GA S ORDERABLES Final Result Performing Organization Address [facility]/ZIP Co de Phone Number [facility] [address] [place] [address] * MEASLES IGG AB (09/13/2020 15:12 EDT) Pathologist [facility] Measles IgG Ab Positive See Note 09/15/2020 13:24 EDT [facility] Comment:Presence of detectab le measles virus IgG antibodies. Blood VENOUS BLOOD / Unknown 09/13/2020 15:12 EDT 09/14/2020 16:42 EDT us Provider Outr Resulting Lab IMMUNOLOGY AND SEROL OGY ORDERABLES Final Result Performing Organization Address City/[facility] Co de Phone Number [facility] [address] [place] [address] * VARICELLA IGG ANTIBODY (09/13/2020 15:12 EDT) Varicella IgG Ab Positive See Note 09/15/2020 13:23 EDT [facility] Comment:Presence of detectab le Varicella Zoster virus IgG antibodies. Blood VENOUS BLOOD / Unknown 09/13/2020 15:12 EDT 09/14/2020 16:42 EDT us Provider Outr Resulting Lab IMMUNOLOGY AND SEROL OGY ORDERABLES Final Result Performing Organization Address [facility] Co de Phone Number [facility] [address] [place] [address] * MUMPS ANTIBODY IGG (09/13/2020 15:12 EDT) Mumps Antibody IgG Positive See Note 09/15/2020 13:25 EDT [facility] Comment:Presence of detectab le mumps virus IgG antibodies. Blood VENOUS BLOOD / Unknown 09/13/2020 15:12 EDT 09/14/2020 16:42 EDT us Provider Outr Resulting Lab IMMUNOLOGY AND SEROL OGY ORDERABLES Final Result Performing Organization Address [facility] Co de Phone Number [facility] [address] [place] [address] * RUBELLA IGG ANTIBODY (09/13/2020 15:12 EDT) Rubella IgG Ab Positive See Note 09/15/2020 13:26 EDT [facility] Comment:Positive for IgG ant ibodies to Rubella virus. Blood VENOUS BLOOD / Unknown 09/13/2020 15:12 EDT 09/14/2020 16:42 EDT us Provider Outr Resulting Lab CHEMISTRY & BLOOD GA S ORDERABLES Final Result [facility] [address] [place] [address] documented in this encounter Visit Diagnoses Not on filedocumented in this encounter Care Teams Photographic Aide Relationship Specialty Start Date End Date Stephani Kuhn PA [address] [place] [address] PCP - General 03/12/14 documented as of this encounter
--- OUTSIDE RECORDS SUMMARY | 2024-05-01 00:07 | XMS_ITS | Encounter Summary ---
Author Organization [facility] Address [address] [place] [address] Care Team Providers Care Production Planner Scheduler Name Role Phone None, Provider Primary Care Provider Unavailabl e Encounter Details Date Type Department Care Team (Late st Contact Info) Description 07/30/2013 Results Only [facility] Laboratory Services - [facility] ([facility]) [address] [place] [address] Cherie Lynch MD [address] [place] [address] [place] [address] Social History Tobacco Use Types Packs/Day Years [...] Name Priority Date/Time Associated Diagnosis Comments PAP TEST- RESULT ONLY Routine 07/30/2013 0:00 EDT documented in this encounter Results * PAP TEST- RESULT ONLY (07/30/2013 0:00 EDT) Pathology Report: CYTOPATHOLOGY REPORT Reports generated via electronic interface contain original data; however they are lacking the format of the original report. Caution should be taken when reading/interpreti ng unformatted reports. Name: ? ANISHA MARTIN ? Accession #: ? [id number] ? : ? 1980 (Age: 33) ??F ?Collect Date: ? 07/30/2013 ? Location: ? [facility] ? Receive Date: ? 07/31/2013 ? Provider: CHERIE LYNCH MD Copy to: ? Final Report SPECIMEN ADEQUACY ? Satisfactory for Evaluation - transformation zone component present GENERAL CATEGORIZATION ? Negative for Intraepithelial Lesion or Malignancy INTERPRETATION ? Reactive cellular changes associated with inflammation present (includes repair). 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 JEFFREY HERNANDEZ MD ? Report ??Date: 08/06/2013 18:05 HPV with Pap Test ? Date Ordered: ? 08/06/2013 ? Status: ?? Signed Out ?Date Complete: ? 08/08/2013 ? By: ??System Interface ? Date Reported: ? 08/08/2013 ? Interpretation RESULT: Positive for high or intermediate risk HPV. E6 OR E7 mRNA from one or more types of HPV types 16,18,31, 33,35,39,45,51,52, 56,58,59,66, and 68 is detected by rn picu mediated amplification. High and intermediate risk HPV types are associated with most squamous intraepithelial lesions and cervical cancers. Test not validated for this type of specimen or collection method. The sensitivity and specificity of the test in this situation are unknown. The results should be interpreted with caution. Comments Document reviewed and electronically signed by: ? System Interface ? Report date: 08/08/2013 By the signature above, the attending physician certifies that he/she has personally conducted a gross and/or microscopic examination of the described specimens and rendered or confirmed the above diagnosis. End of Report [facility] 07/30/2013 07/31/2013 us Cherie Lynch MD PATHOLOGY ORDERABLES Final Resu lt [facility] [address] [place] [address] documented in this encounter Visit Diagnoses Not on filedocumented in this encounter Care Teams Production Planner Scheduler Relationship Specialty Start Date End Date None, Provider PCP - General 11/30/11 03/11/14 documented as of this encounter
--- OUTSIDE RECORDS SUMMARY | 2024-05-01 00:07 | XMS_ITS | Referral Summary ---
Author Organization [facility] Address [address] [place] [address] Care Team Providers Care Fast Food Shift Lead Name Role Phone Stephani Kuhn Primary Care Provider Social History Tobacco Use Types Packs/Day Years Used Date Smoking Tobacco: Never Assessed Comments Unknown Sex and Gender Information Value Date Recorded Sex Assigned at Not on file Legal Sex Female 18:26 EST Gender Identity Not on file Sexual Orientation Not on file Plan of Treatment Not on file Procedures Procedure Name Priority Date/Time Associated Diagnosis Comments HEPATITIS C AB W REFLEX TO HCV RNA BY PCR Routine 12/27/2020 15:32 EDT from Last 3 Months or Most Recently Relevant to Health Maintenance Results * HEPATITIS C AB W REFLEX TO HCV RNA BY PCR (12/27/2020 15:32 EDT) Hep C Antibody Negative Negative 12/28/2020 14:57 EDT [facility] Blood VENOUS BLOOD / Unknown 12/27/2020 15:32 EDT 12/28/2020 13:50 EDT us Provider Outr Resulting Lab CHEMISTRY & BLOOD GA S ORDERABLES Final Result [facility] [address] [place] [address] from Last 3 Months or Most Recently Relevant to Health Maintenance Care Teams Fast Food Shift Lead Relationship Specialty Start Date End Date Stephani Kuhn PA [address] [place] [address] PCP - General 03/12/14
--- OUTSIDE RECORDS SUMMARY | 2024-05-01 00:07 | XMS_ITS | Encounter Summary ---
Author Organization [facility] Address [address] [place] [address] Care Team Providers Care Utilities Operator Name Role Phone None, Provider Primary Care Provider Unavailabl e Encounter Details Date Type Department Care Team (Late st Contact Info) Description 01/20/2013 Results Only [facility] Laboratory Services - [facility] ([facility] [address] [place] [address] Cherie Lynch MD [address] [place] [address] [place] [address] Social History Tobacco Use Types Packs/Day Years [...] Diagnosis Comments PAP TEST- RESULT ONLY Routine 01/20/2013 0:00 EDT documented in this encounter Results * PAP TEST- RESULT ONLY (01/20/2013 0:00 EDT) Pathology Report: CYTOPATHOLOGY REPORT Reports generated via electronic interface contain original data; however they are lacking the format of the original report. Caution should be taken when reading/interpreti ng unformatted reports. Name: ? ANISHA MARTIN ? Accession #: ? [id number] : ? 1980 (Age: 32) ??F ?Collect Date: ? 01/20/2013 Location: ? [facility] ? Receive Date: ? 01/22/2013 Provider: ?CHERIE LYNCH MD Copy to: ? Specimen/Source: ?Pap Test, Cervix/Endocervix, [employer] Imaging System with manual evaluation Last Menstrual Period: ? Previous Gynecologic Pathology: ? ERIK II Treatment History: ? LEEP ? SPECIMEN ADEQUACY ? Satisfactory for Evaluation - transformation zone component present GENERAL CATEGORIZATION ? Negative for Intraepithelial Lesion or Malignancy INTERPRETATION ? Reactive cellular changes associated with inflammation present (includes repair). ? Document reviewed and electronically signed by: ? JUSTICE PABON MD ? Report Date: ??01/27/2013 14:15 End of Report [facility] 01/20/2013 01/22/2013 us Cherie Lynch MD PATHOLOGY ORDERABLES Final Resu lt [facility] [address] [place] [address] documented in this encounter Visit Diagnoses Not on filedocumented in this encounter Care Teams Utilities Operator Relationship Specialty Start Date End Date None, Provider PCP - General 11/30/11 03/11/14 documented as of this encounter
--- OUTSIDE RECORDS SUMMARY | 2024-05-01 00:07 | XMS_ITS | Encounter Summary ---
Author Organization [facility] Address [address] [place] [address] Care Team Providers Care Decorating Kiln Operator Name Role Phone None, Provider Primary Care Provider Unavailabl e Encounter Details Date Type Department Care Team (Latest Contact Info) Description 03/10/2014 16:50 EST - 03/10/2014 23:59 EST Hospital Encounter [address] [address] Unknown, Provider, MD Discharge Disposition: Home or Self Care Social History Tobacco Use Types Packs/Day Years Used Date Smoking Tobacco: Never Assessed Comments Unknown Sex and Gender Information Value Date Recorded Sex Assigned at Not on file Legal Sex Female 18:26 EST Gender Identity Not on file Sexual Orientation Not on file documented as of this encounter Discharge Disposition Disposition Code Departure Means Destination Home or Self Senior Care documented in this encounter Plan of Treatment Not on file documented as of this encounter Visit Diagnoses Not on filedocumented in this encounter Care Teams Decorating Kiln Operator Relationship Specialty Start Date End Date None, Provider PCP - General 11/30/11 03/11/14 documented as of this encounter
--- OUTSIDE RECORDS SUMMARY | 2024-05-01 00:07 | XMS_ITS | Encounter Summary ---
[place] [address] Care Team Providers Care Mechanical Technical Service Specialist Name Role Phone Unknown Primary Care Provider Unavailabl e Reason for Referral * Consultation (Routine) - Closed Specialty Diagnoses / Procedures Referred By Contac t Referred To Contact Infectious Diseases Diagnoses Routine general medical examination at a health care facility C-ACNES ON CULTURE S/P SHOULDER ARTHROSCOPY 01/03/24 [employer] [id number] Russell Beavers MD [address] [place] [address] [facility] [address] [place] [phone] Referral ID Status Reason Start Date Expiration Date V isits Requested Visits Authorized [id number] Closed Consult, Test & Treat PCP Updated and/or Approved 01/17/2024 01/16/2025 6 6 Encounter Details Date Type Department Care Team (Latest Contact Info) Description 01/31/2024 Transcribe Orders eDH Incoming Referrals [phone] Russell Beavers MD [address] [place] [address] Routine general medical examination at a health care facility Social History Tobacco Use Types Packs/Day Years Used Date Smoking Tobacco: Former Sex and Gender Information Value Date Recorded Sex Assigned at Not on file Gender Identity Not on file Sexual Orientation Not on file documented as of this encounter Plan of Treatment Upcoming Encounters Date Type Department Care Team (Late st Contact Info) Description 05/14/2024 11:30 AM EST Office [place] [address] Charles Martines MD [facility] [place] [address] Scheduled Referrals Name Type Priority Associated Diagnoses Order Schedule Referral to Infectious Disease and [facility] Outpatient Referral Routine Routine general medical examination at a health care facility Ordered: 01/31/2024 documented as of this encounter Visit Diagnoses Diagnosis Routine general medical examination at a health care facility documented in this encounter Care Teams Mechanical Technical Service Specialist Relationship Specialty Start Date End Date Unknown None PCP - General 04/17/23 documented as of this encounter
--- OUTSIDE RECORDS SUMMARY | 2024-05-01 00:07 | XMS_ITS | Encounter Summary ---
Author Organization [facility] Address [address] [place] [address] Care Team Providers Care Chief Maintenance Supervisor Name Role Phone Deisy Pressley MAISHA Primary Care Provider + Encounter Details Date Type Department Care Team (Late st Contact Info) Description 11/28/2011 Results Only [facility] Laboratory Services - [facility] ([facility]) [address] [place], [place] [phone] Tucker Chavira MD [address] [facility] [place] [address] Social History Tobacco Use Types [...] Date/Time Associated Diagnosis Comments SURGICAL PATHOLOGY Routine 11/28/2011 0:00 EDT documented in this encounter Results * SURGICAL PATHOLOGY (11/28/2011 0:00 EDT) Pathology Report: SURGICAL PATHOLOGY REPORT Reports generated via electronic interface contain original data; however they are lacking the format of the original report. Caution should be taken when reading/interpreti ng unformatted reports. Name: ? ANISHA MARTIN ? Accession #: ? [id number] ? : ? 1980 (Age: 31) ??F ? Collect Date: ? 11/28/2011 ? Location: ? [facility] ? Receive Date: ? 11/28/2011 ? Provider: TUCKER CHAVIRA MD Copy to: ? Final Pathologic Diagnosis: A. ?Cervix, 5 o'clock, biopsy: 1. 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 ?? B. ?Endocervix, curettage: 1. ?Rare detached fragment of metaplastic squamous epithelium with squamous intraepithelial lesion, favor high grade. ??See comment. 2. ? Detached strips of benign endocervical glands. Comment: ? This case was reviewed in conjunction with the previous Pap smear ([id number]). ??Mr Teacher sections of this case have been reviewed at the intradepartmental consultation conference. (Dr. Hawthorne)/[facility] Document reviewed and electronically signed by: JEFFREY HAWTHORNE MD Report ??Date: 11/30/2011 18:30 By the signature above, the attending physician certifies that he/she has personally conducted a gross and/or microscopic examination of the described specimens and rendered or confirmed the above diagnosis. Specimen(s) Received: A. ?5 o'clock (#1) B. ? ECC (#2) Clinical History: ? Hx of ERIK I by colpo 12/15; Pap LSIL during ; colposcopy today c/w ERIK I; LMP: , nursing Gross Description: ? Received in formalin labelled Anisha Martin and cervix bx 5 o'clock is a light rasheed biopsy measuring 0.2 x 0.2 x 0.2 cm. ??The specimen is submitted intact as (A). Received in formalin labelled Anisha Martin and endocervical curettage is 1 cc of blood-tinged mucus admixed with multiple fragments of red-brown tissue. The specimen is submitted entirely as (B) following filtration. ??(Lanre Cavanaugh)/[facility] End of Report [facility] 11/28/2011 11/28/2011 16: 49 EDT us Tucker Chavira MD PATHOLOGY ORDERABLES Final Re sult [facility] [address] [place] [address] documented in this encounter Visit Diagnoses Not on filedocumented in this encounter Care Teams Chief Maintenance Supervisor Relationship Specialty Start Date End Date Deisy Pressley APRN [address] [place] [phone] PCP - General 02/24/09 11/29/11 documented as of this encounter
--- OUTSIDE RECORDS SUMMARY | 2024-05-01 00:07 | XMS_ITS | Encounter Summary ---
Author Organization [facility] Address [address] [place] [address] Care Team Providers Care Bottom Crane Operator Name Role Phone Deisy Pressley APRN Primary Care Provider + Encounter Details Date Type Department Care Team (Latest Contact Info) Description 03/10/2009 8:07 EST - 03/10/2009 23:59 EST Hospital Encounter [facility] Neurophysiology - [facility] [address] [place], [place] [phone] Unknown, Provider, John Menendez MD Emg, MD Discharge Disposition: Auto Discharge Social History Tobacco Use Types Packs/Day Years Used Date Smoking Tobacco: Never Assessed Comments Unknown Sex and Gender Information Value Date Recorded Sex Assigned at Not on file Legal Sex Female 18:26 EST Gender Identity Not on file Sexual Orientation Not on file documented as of this encounter Discharge Disposition Disposition Code Departure Means Destination Auto Discharge Home documented in this encounter Plan of Treatment Not on file documented as of this encounter Visit Diagnoses Not on filedocumented in this encounter Care Teams Bottom Crane Operator Relationship Specialty Start Date End Date Deisy Pressley APRN [address] [place] [phone] PCP - General 02/24/09 11/29/11 documented as of this encounter
--- OUTSIDE RECORDS SUMMARY | 2024-05-01 00:07 | XMS_ITS | Encounter Summary ---
Author Organization [facility] Address [address] [place] [address] Care Team Providers Care Juvenile Correctional Officer Name Role Phone Deisy Pressley MAISHA Primary Care Provider + Encounter Details Date Type Department Care Team (Late st Contact Info) Description 11/24/2011 Results Only [facility] Laboratory Services - [facility] ([facility]) [address] [place], [place] [address] Leonides Flores CN[address] [id number] Social History Tobacco Use Types Packs/Day Years [...] Diagnosis Comments PAP TEST- RESULT ONLY Routine 11/24/2011 0:00 EDT documented in this encounter Results * PAP TEST- RESULT ONLY (11/24/2011 0:00 EDT) Pathology Report: CYTOPATHOLOGY REPORT Reports generated via electronic interface contain original data; however they are lacking the format of the original report. Caution should be taken when reading/interpreti ng unformatted reports. Name: ? AHSAN ANISHA Weeks ? Accession #: ? [id number] : ? 1980 (Age: 31) ??F ?Collect Date: ? 11/24/2011 Location: ? [facility] ? Receive Date: ? 11/27/2011 Provider: ?LEONIDES FLORES CNM Copy to: ? Specimen/Source: ?Pap Test, Source Not Provided, [employer] Imaging System with manual evaluation Last Menstrual Period: ? 12/22/10 Menstrual/Pregnanc y Status: ? Post Previous Gynecologic Pathology: ? LSIL: 12/08/10, 04/24/11 ERIK I: 01/04/11 Treatment History: ? Cryotherapy: -Colpo Colposcopy: ERIK I 01/04/11 ? SPECIMEN ADEQUACY ? Satisfactory for Evaluation - transformation zone component present GENERAL CATEGORIZATION ? Epithelial Cell Abnormality INTERPRETATION ? Squamous Cell Abnormality - Low grade squamous intraepithelial lesion, cannot exclude ? high grade squamous intraepithelial lesion (LSIL-H). EDUCATIONAL NOTES/RECOMMENDATI ONS ? There is no ASCCP recommendation specific to the diagnosis above. ??This diagnosis indicates a greater likelihood of the cervix harboring HSIL compared to a diagnosis of LSIL alone, 55% vs. 17% in our experience. ??Initial colposcopic evaluation is advised. Should HSIL not be confirmed on colposcopic evaluation and/or biopsy, close follow-up with Pap test and/or repeat colposcopy is advised. ??In some situations there may be clinical or colposcopic reasons to perform a diagnostic cone biopsy/LEEP. ? Document reviewed and electronically signed by: ? YI BHATIA MD ? Report Date: ??12/01/2011 13:42 End of Report [facility] 11/24/2011 11/27/2011 us Leonides Flores CNM PATHOLOGY ORDERABLES Final Resul t [facility] [address] [place] [address] documented in this encounter Visit Diagnoses Not on filedocumented in this encounter Care Teams Juvenile Correctional Officer Relationship Specialty Start Date End Date Deisy Pressley APRN [address] [place] [phone] PCP - General 02/24/09 11/29/11 documented as of this encounter
--- OUTSIDE RECORDS SUMMARY | 2024-05-01 00:07 | XMS_ITS | Encounter Summary ---
Author Organization [facility] [place] [address] Care Team Providers Care Racquet Maker Name Role Phone Unknown Primary Care Provider Miltonabl e Encounter Details Date Type Department Care Team (Late st Contact Info) Description 01/28/2024 Telephone [place] [address] Unknown None Social History Tobacco Use Types Packs/Day Years Used Date Smoking Tobacco: Former Sex and Gender Information Value Date Recorded Sex Assigned at Not on file Gender Identity Not on file Sexual Orientation Not on file documented as of this encounter Miscellaneous Notes * Telephone Encounter - Hanna Jaimes - 01/29/2024 3:13 PM EDT [facility] with [facility] was returning call. * Telephone Encounter - Maria Luz Tao - 01/28/2024 12:58 PM EDT Clinic Coverage - Reason for Call: Provider Call PCP: Unknown / Treating provider: Russell Beavers Name of caller (if different from provider): Yoana Name of Provider: Russell Beavers Name of Facility they are calling from: [facility] Reason for call: Patient has a P Acne infection in her shoulder. Patient was treated with Amoxicillin and 10 days into treatment developed a full body rash . Yoana is looking for Guidance on what other medication she can be given . They also sent over a referral and were looking to see if we received it . Call Back Number: [phone] Best time to call: Any Caller Name (If other than patient): Yoana Relationship to Patient (if other than self): Relationship To Patient: Ortho Callback number: [phone] (Gummii PHONEALL, PREFPHONE) Best time you are available: Any Route Per Clinic Coverage Page documented in this encounter Plan of Treatment Upcoming Encounters Date Type Department Care Team (Late st Contact Info) Description 05/14/2024 11:30 AM EST Office [place] [address] Charles Martines MD [facility] [place] [address] documented as of this encounter Visit Diagnoses Not on filedocumented in this encounter Care Teams Racquet Maker Relationship Specialty Start Date End Date Unknown None PCP - General 04/17/23 documented as of this encounter
--- OUTSIDE RECORDS SUMMARY | 2024-05-01 00:07 | XMS_ITS | Encounter Summary ---
Author Organization [facility] Address [address] [place] [address] Care Team Providers Care Marketing Planning Manager Name Role Phone WendieMayra blantonhleen Desi FERRERA Primary Care Provider + None, Provider Primary Care Provider Stephani Rivas Primary Care Provider Encounter Details Date Type Department Care Team (Late st Contact Info) Description 12/02/2009 Historical Results Only [facility] Lab - [address] [id number] Ronny Arora PA [address] [place], [place] [id number] Social History Tobacco Use Types Packs/Day Years [...] Date/Time Associated Diagnosis Comments PAP TEST Routine 12/02/2009 documented in this encounter Results * PAP TEST (12/02/2009) 12/02/2009 12/03/2009 16: 58 EDT Narrative [facility] - 12/14/2009 13:33 EDT ----- ------- Name: ANISHA SMALL ?: [birth year] ?Age/Sex: 38/F ?Unit#: [id number] ? Loc: BIM ? Status: REG POV ?? Reg Date: 12/02/09 ? Pt.Phone Number: ? ----- ------- Specimen: [id number] ?STATUS: SOUT ?Spec Date:12/02/09 ? Physician Copies: ?Ronny Arora ?? Tissues: ? Cervical/Endo Pap ?Deisy Pressley CPT: 97777 ?? Units: ??1 ----- ------- ? CYTOLOGY DIAGNOSIS SPECIMEN ADEQUACY: ?Satisfactory for evaluation. Transformation zone component present. GENERAL CATEGORIZATION: ?Negative for Intraepithelial Lesion or Malignancy DESCRIPTIVE DIAGNOSIS: ??Reactive cellular changes associated with inflammation present (includes typical repair). RECOMMENDATIONS/COMMENTS: ?None. ----- ------- ?HPV DNA RESULTS ?? 12/02/09 0758 HPV DNA RESULT ??NEG ? Negative for HPV types 16, 18, 31, 33, 35, 39, 45, 51, 52, ? 56, 58, 59, 66, 68. ? Method: Cervista HPV HR (High Risk) DNA test. ----- ------- ORDER QUERIES: LMP: 11/25/09- ? N Post ? N ??PREVIOUS ATYPICAL: Y BCP/HRT? N Rad Rx? N IUD? N ??PAP PLUS HPV? Y ??REFLEX TO HR-HPV IF ASCUS ?? REFLEX TO HPV 16/18 IF HPV POS/PAP NEG ?? HPV REGARDLESS?RFLX HPV IF LSIL ?? IF ASCUS DO HPV? Signed ____(signature on file)____ Kaylene Rai M.D. 12/14/09 By the signature above, the attending physician certifies that he/she has personally conducted a gross and/or microscopic examination of the described specimens and rendered or confirmed the above diagnosis. Test Performed by [facility], [address] [place] [id number] [employer] Field Manager: Kaylene Rai MD PHD ----- ------- us Ronny HU PATHOLOGY ORDERABLES Final R esult [facility] documented in this encounter Visit Diagnoses Not on filedocumented in this encounter Care Teams Marketing Planning Manager Relationship Specialty Start Date End Date Deisy Pressley APRN [address] [place] [phone] PCP - General 02/24/09 11/29/11 None, Provider PCP - General 11/30/11 03/11/14 Stephani Kuhn PA [address] [place] [phone] PCP - General 03/12/14 documented as of this encounter
--- OUTSIDE RECORDS SUMMARY | 2024-05-01 00:07 | XMS_ITS | Encounter Summary ---
Author Organization [facility] [place] [address] Care Team Providers Care Enrobing Machine Operator Name Role Phone Unknown Primary Care Provider Unavailabl e Encounter Details Date Type Department Care Team (Latest Contact Info) Description 03/12/2024 Travel Social History Tobacco Use Types Packs/Day Years [...] AM EST Office Visit [place] [address] Charles Martines MD [facility] [place] [address] documented as of this encounter Visit Diagnoses Not on filedocumented in this encounter Care Teams Enrobing Machine Operator Relationship Specialty Start Date End Date Unknown None PCP - General 04/17/23 documented as of this encounter
--- OUTSIDE RECORDS SUMMARY | 2024-05-01 00:07 | XMS_ITS | Encounter Summary ---
Author Organization [facility] [place] [address] Care Team Providers Care Interventionist Name Role Phone Unknown Primary Care Provider Unavailabl e Encounter Details Date Type Department Care Team (Late st Contact Info) Description 02/12/2024 Telephone [place] [address] None None Social History Tobacco Use Types Packs/Day Years Used Date Smoking Tobacco: Former Smokeless Tobacco: Never Sex and Gender Information Value Date Recorded Sex Assigned at Not on file Gender Identity Not on file Sexual Orientation Not on file documented as of this encounter Miscellaneous Notes * Telephone Encounter - Pawel Tyson - 02/12/2024 11:42 AM EDT CLINIC PHONE COVERAGE: Reason for Call: Provider Call PCP: Unknown / Treating provider: n/a Request Type: Call back Name of Provider: Russell Beavers MD Name of Facility they are calling from: [facility] Details: Yoana with [facility] calling as they received something from us wondering if patient has any more procedures upcoming with Dr. Beavers. Yoana noted that patient does not currentlyhave any and they are faxing us this info as well please call if any questions Caller Name (If other than patient): Yoana[facility] Callback number: [phone] Best time you are available: Any Route Per Clinic Coverage Page documented in this encounter Plan of Treatment Upcoming Encounters Date Type Department Care Team (Late st Contact Info) Description 05/14/2024 11:30 AM EST Office [place] [address] Charles Martines MD [facility] [place] [address] documented as of this encounter Visit Diagnoses Not on filedocumented in this encounter Care Teams Interventionist Relationship Specialty Start Date End Date Unknown None PCP - General 04/17/23 documented as of this encounter
--- OUTSIDE RECORDS SUMMARY | 2024-05-01 00:07 | XMS_ITS | Encounter Summary ---
Author Organization [facility] [place] [address] Care Team Providers Care Jail Keeper Name Role Phone Unknown Primary Care Provider Unavailabl e Reason for Visit * Consultation (Routine) - Closed Specialty Diagnoses / Procedures Referred By Contac t Referred To Contact Infectious Diseases Diagnoses Routine general medical examination at a health care facility C-ACNES ON CULTURE S/P SHOULDER ARTHROSCOPY 01/03/24 [facility] [phone] Russell Beavers MD [address] [place] [address] [facility] [address] [place] [address] Referral ID Status Reason Start Date Expiration Date V isits Requested Visits Authorized [id number] Closed Consult, Test & Treat PCP Updated and/or Approved 01/17/2024 01/16/2025 6 6 Encounter Details Date Type Department Care Team (Latest Contact Info) Description 02/06/2024 10:00 AM EDT Office Visit [place] [address] Ros Leslie MD [facility] [place] [address] Joint infection; Infection due to Cutibacterium species; Traumatic tear of right rotator cuff, unspecified tear extent, sequela Social History Tobacco Use Types Packs/Day Years Used Date Smoking Tobacco: Former Smokeless Tobacco: Never Tobacco Cessation:Counseling Given: Not Answered Sex and Gender Information Value Date Recorded Sex Assigned at Not on file Gender Identity Not on file Sexual Orientation Not on file documented as of this encounter Last Filed Vital Signs Vital Sign Reading Time Taken Comments Blood Pressure 123/72 02/06/2024 9:50 AM EDT Pulse 90 02/06/2024 9:50 AM EDT Temperature 36.6 ??C (97.8 ??F) 02/06/2024 9:50 AM ED T Respiratory Rate 16 02/06/2024 9:50 AM EDT Oxygen Saturation 100% 02/06/2024 9:50 AM EDT Inhaled Oxygen Concentration - - Weight 106.5 kg (234 lb 12.8 oz) 02/06/2024 9:50 AM EDT Height 157.5 cm (5' 2) 02/06/2024 9:50 AM EDT Body Mass Index 42.95 02/06/2024 9:50 AM EDT documented in this encounter Progress Notes * Ros Leslie MD - 02/06/2024 10:00 AM EDT Images from the original note were not included. [facility] INFECTIOUS DISEASE CLINIC NOTE Chief complaint: History of Present Illness: 43 years old female with history of right rotator cuff tear, prior arthroscopic biceps tendinitis on June 2023, now s/p second right shoulder revision arthroscopy on 12/2023 with extensive debridement, including capsular release and synovial biopsy, arthroscopy with rotator cuff repair, biceps tenodesis, subacromial decompression, partial articular supraspinatus tearing. Her joing culture growing 12/29/2023 grew Cutibacterium acnes. She was started- amoxicillin 500 mg 3times daily, but had rash on that treatment and was switched to clindamycin, started on 01/29 and recommended to see MASON Fallon From her op note 01/03/2024 -glenohumeral joint-significant anterior capsulitis and adhesions about the subscapularis. Rotator interval significant synovitis. Intact prior suture only subscapularis repair. Intact arthroscopic biceps tendon cysts. All consistent with adhesive capsulitis no overt signs of infection. Today we had a chance to see the patient after referral from orthopedics. She is still having significant shoulder pain, significant limitation in range of motion. She denies any redness, any drainage, her scars healing well. But she is very concerning about this new infection, and prognosis, and if the antibiotic treatmentwill help with the pain and if it is reason of her pain. She denies she had fever. She continue with the physical therapy. And continue follow-up with orthopedic. Social History: Social History Socioeconomic History Marital status: Spouse name: Not on file Number of children: Not on file Years of education: Not on file Highest education level: Not on file Occupational History Not on file Tobacco Use Smoking status: Former Smokeless tobacco: Never Vaping Use Vaping status: Every Day Substance and Sexual Activity Alcohol use: Not on file Drug use: Not on file Sexual activity: Not on file Other Topics Concern Not on file Social History Narrative Not on file Social Determinants of Health Financial Resource Strain: Not on file Food Insecurity: Not on file Transportation Needs: Not on file Physical Activity: Not on file Intimate Partner Violence: Not on file Housing Stability: Not on file Antimicrobial assessment YES NO Prior ABX use in the past 3 months [x] [] Prior hospital admission in the past 3 months [x] [] ABX allergies [x] [] Review of Systems: CONSTITUTIONAL: No fever. No chills. No weakness. EYES: No pain, erythema, or discharge. ENT: No sore throat, URI symptoms. CARDIOVASCULAR: No chest pain. No palpitations. No lower extremity edema. RESPIRATORY: No shortness of breath, cough, pain with respiration, pleuritic chest pain. No hemoptysis. No dyspnea. GASTROINTESTINAL: No nausea, vomiting, diarrhea. No pain. No bloating. GENITOURINARY: No frequency, urgency, No hematuria or dysuria. MUSCULOSKELETAL: She has tenderness on the palpation of the right shoulder, and decreased range of motion on active and passive movement NEUROLOGIC: No headache. No neck pain. No numbness or tingling of the extremities. SKIN: No rash HEMATOLOGICAL: No bleeding. No petechiae. No bruising. Meds: Current Outpatient Medications on File Prior to Visit Medication Sig Dispense Refill clindamycin (Cleocin) 300 mg capsule TAKE TWO CAPSULES BY MOUTH EVERY 6 HOURS FOR RIGHT SHOULDER INFECTION FOR 30 DAYS BiomePRO 50 billion cell Capsule, Delayed Release(E.C.) ONE BY MOUTH EVERY DAY escitalopram (Lexapro) 20 mg tablet Take 20 mg by mouth daily. lamoTRIgine (LAMICTAL) 100 mg Tablet TAKE ONE TABLET BY MOUTH EVERY DAY 0 [DISCONTINUED] escitalopram (LEXAPRO) 10 mg Tablet TAKE ONE TABLET BY MOUTH EVERY DAY 0 EPINEPHrine (EpiPen) 0.3 mg/0.3 mL Auto-Injector Inject 0.3 mg into the muscle. naproxen (Naprosyn) 250 mg tablet TAKE ONE TO TWO TABLETS BY MOUTH TWICE A DAY NEEDED MODERATE PAIN clindamycin-benzoyl peroxide (BENZACLIN) 1-5 % Gel Apply topically to the face once daily (Patient not taking: Reported on 02/06/2024) 50 g 3 doxycycline (VIBRAMYCIN) 100 mg Capsule Take 1 capsule by mouth daily. For 30 days (Patient not taking: Reported on 02/06/2024) 30 capsule 0 metroNIDAZOLE (METROCREAM) 0.75 % Cream Apply topically 2 times daily. As needed (Patient not taking: Reported on 02/06/2024) 45 g 5 No current facility-administered medications on file prior to visit. Vital Signs Last value Range last 24 hrs Temperature Temp: [36.6 ??C (97.8 ??F)] Heart Rate Heart Rate: [90] Blood Pressure BP: (123)/(72) Respiratory Rate Resp: [16] SpO2 SpO2: [100 %] Physical Exam GENERAL APPEARANCE: Well-developed, well-nourished in no acute distress. VITAL SIGNS: Reviewed HEENT: No scleral icterus. Pupils are equal, round, and reactive. No conjunctival injection. Oropharynx is clear. Mouth no lesions. Tympanic membranes are clear. NECK: No evidence of thyroid enlargement. No lymphadenopathy or tenderness. LUNGS: Breath sounds are equal and clear bilaterally. No wheezes, rhonchi, or rales. HEART: Regular rate and rhythm with normal S1 and S2. No murmurs, gallops, or rubs. ABDOMEN: Soft. No mass, tenderness, guarding, or rebound. No organomegaly or hernia. Bowel sounds are present. No CVA tenderness EXTREMITIES: No cyanosis, clubbing, or edema. NEUROLOGIC: No focal sensory or motor deficits are noted. PSYCHIATRIC: Appropriate mood and affect. SKIN: No lesions, nodules or rashes are noted LYMPHATICS: No cervical, axillary, or groin adenopathy is noted. Imaging Studies Microbiology Joint fluid Cutibacterium acnes- 01/03/2024 Assessment and Plan Based on patient clinical presentation, review of data and chart my plan is as follows: Patient is 43 years old female with history of right rotator cuff tear, prior arthroscopic biceps tendinitis on June 2023, now s/p second right shoulder revision arthroscopy on 12/2023 with extensive debridement. Her joing culture growing 12/29/2023 grew Cutibacterium acnes. She was started- amoxicillin 500 mg 3 times daily, but had rash on that treatment and was switched to clindamycin, started on 01/29 and recommended to see ID Dr. I called and asked [facility] lab to obtain final sensitivity, unfortunately they do not perform susceptibility for Cutibacterium acnes, and they already discarded the specimen and because it is more than 1 months. -We would like to check with her surgery team and see if they are planning to perform additional procedures and surgery to take hardwire(screws) that she have now, as it will not may change the length of the antibiotic treatment plan, I am going to send this note to them -We would recommend to switch to Cefadroxil 1g BID, we will wait to add Rifampin now, till we will hear from ortho team Addendum 02/27/[address] Beavers and discussed with him any future surgical planning. According to him, there are no plans for other surgery at this time. He mentioned that you have an almost calcified screw from the surgery in June 2023 and one new anchor suture was placed in December, that calcium-composite. We recommend continuing with Cefadroxil and will add Rifampin 300 BID and will see patient in the clinic on 03/[address] Martines Follow up: Ros Leslie MD Infectious Disease Fellow [facility] 02/01/2024 * Charles Martines MD - 02/06/2024 10:00 AM EDT Attending Addendum: I have seen and examined the patient, reviewed the data and agree with the note by Dr. Leslie. documented in this encounter Miscellaneous Notes * Addendum Note - Ros Leslie MD - 02/06/2024 10:00 AM EDTAddended by: ROS LESLIE on: 02/08/2024 02:59 PM Modules accepted: Orders documented in this encounter Plan of Treatment Upcoming Encounters Date Type Department Care Team (Late st Contact Info) Description 05/14/2024 11:30 AM EST Office Visit [place] [address] Charles Martines MD [facility] [place] [address] documented as of this encounter Visit Diagnoses Diagnosis Joint infection Unspecified infective arthritis, multiple sites Infection due to Cutibacterium species Traumatic tear of right rotator cuff, unspecified tear extent, sequela documented in this encounter Care Teams Jail Keeper Relationship Specialty Start Date End Date Unknown None PCP - General 04/17/23 documented as of this encounter
--- OUTSIDE RECORDS SUMMARY | 2024-05-01 00:07 | XMS_ITS | Encounter Summary ---
Author Organization [facility] Address [address] [place] [address] Care Team Providers Care Surgical Services Tech Name Role Phone Deisy Pressley MAISHA Primary Care Provider + Encounter Details Date Type Department Care Team (Late st Contact Info) Description 04/24/2011 Results Only [facility] Laboratory Services - [facility] [address] [place], [place] [id number] Tucker Chavira MD [address] [place] [address] Social History Tobacco Use Types [...] Diagnosis Comments PAP TEST- RESULT ONLY Routine 04/24/2011 0:00 EST documented in this encounter Results * PAP TEST- RESULT ONLY (04/24/2011 0:00 EST) Pathology Report: CYTOPATHOLOGY REPORT Reports generated via electronic interface contain original data; however they are lacking the format of the original report. Caution should be taken when reading/interpreti ng unformatted reports. Name: ? ANISHA MARTIN ? Accession #: ? [id number] : ? 1980 (Age: 30) ??F ?Collect Date: ? 04/24/2011 Location: ? [facility] ? Receive Date: ? 04/25/2011 Provider: ?TUCKER CHAVIRA MD Copy to: ? Specimen/Source: ?Pap Test, Cervix/Endocervix, ThinPrep Imaging System with manual evaluation Last Menstrual Period: ? Previous Gynecologic Pathology: ? LSIL: 12/08/2010, 01/04/2011, 01/03/2011 ERIK I: 01/04/2011, HSIL: 01/03/2011 Treatment History: ? Colposcopy: 01/04/2011 Cryotherapy: 01/03/2011 ? SPECIMEN ADEQUACY ? Satisfactory for Evaluation - transformation zone component present GENERAL CATEGORIZATION ? Epithelial Cell Abnormality INTERPRETATION ? Squamous Cell Abnormality - Low grade squamous intraepithelial lesion (LSIL). EDUCATIONAL NOTES/RECOMMENDATI ONS ? [facility] recommends following the 2006 Consensus Guidelines for the Management of Women with Abnormal Cervical Cancer Screening Tests (JLGTD, 2007;11(4):201-222 ). ??Consensus guidelines are available online at www.ASCCP.org. ? Document reviewed and electronically signed by: ? ROBIN MONTEMAYOR MD ? Report Date: ??04/28/2011 11:53 End of Report [facility] 04/24/2011 04/25/2011 us Tucker Chavira MD PATHOLOGY ORDERABLES Final Re sult [facility] [address] [place] [address] documented in this encounter Visit Diagnoses Not on filedocumented in this encounter Care Teams Surgical Services Tech Relationship Specialty Start Date End Date Deisy Pressley APRN [address] [place] [phone] PCP - General 02/24/09 11/29/11 documented as of this encounter
--- OUTSIDE RECORDS SUMMARY | 2024-05-01 00:07 | XMS_ITS | Encounter Summary ---
Author Organization [facility] [place] [address] Care Team Providers Care Sales Development Director Name Role Phone Unknown Primary Care Provider Unavailabl e Encounter Details Date Type Department Care Team (Latest Contact Info) Description 02/06/2024 Travel Social History Tobacco Use Types Packs/Day [...] AM EST Office Visit [place] [address] Charles Martines MD [facility] [place] [address] documented as of this encounter Visit Diagnoses Not on filedocumented in this encounter Care Teams Sales Development Director Relationship Specialty Start Date End Date Unknown None PCP - General 04/17/23 documented as of this encounter
--- OUTSIDE RECORDS SUMMARY | 2024-05-01 00:07 | XMS_ITS | Clinical Summary ---
Author Organization [facility] Address [address] [place] [address] Care Team Providers Care Boxing Inspector Name Role Phone Stephani Kuhn Primary Care Provider Social History Tobacco Use Types Packs/Day Years Used Date Smoking Tobacco: Never Assessed Comments Unknown Sex and Gender Information Value Date Recorded Sex Assigned at Not on file Legal Sex Female 18:26 EST Gender Identity Not on file Sexual Orientation Not on file Plan of Treatment Health Maintenance Due Date Last Done Comments Hepatitis B Vaccine (1 of - 19+ 3-dose series) 07/19 COVID-19 Vaccine ( season) 2024 Hepatitis C Screen Completed 12/27/2020 Procedures Procedure Name Priority Date/Time Associated Diagnosis Comments HEPATITIS C AB W REFLEX TO HCV RNA BY PCR Routine 12/27/2020 15:32 EDT from Last 3 Months or Most Recently Relevant to Health Maintenance Results * HEPATITIS C AB W REFLEX TO HCV RNA BY PCR (12/27/2020 15:32 EDT) Hep C Antibody Negative Negative 12/28/2020 14:57 EDT [facility] Blood VENOUS BLOOD / Unknown 12/27/2020 15:32 EDT 12/28/2020 13:50 EDT us Provider Outr Resulting Lab CHEMISTRY & BLOOD GA S ORDERABLES Final Result [facility] [address] [place] [address] from Last 3 Months or Most Recently Relevant to Health Maintenance Care Teams Boxing Inspector Relationship Specialty Start Date End Date Stephani Kuhn PA [address] [place] [address] PCP - General 03/12/14
--- OUTSIDE RECORDS SUMMARY | 2024-05-01 00:07 | XMS_ITS | Encounter Summary ---
Author Organization [facility] Address [address] [place] [address] Care Team Providers Care Software Engineering Specialist Name Role Phone None, Provider Primary Care Provider Unavailabl e Encounter Details Date Type Department Care Team (Late st Contact Info) Description 01/30/2013 Results Only [facility] [phone] Urbano Drew, [address] [place], [place] [id number] Social History Tobacco Use Types Packs/Day Years [...] Date/Time Associated Diagnosis Comments SURGICAL PATHOLOGY Routine 01/30/2013 21 :37 EDT documented in this encounter Results * SURGICAL PATHOLOGY (01/30/2013 21:37 EDT) Pathology Report: SURGICAL PATHOLOGY REPORT Reports generated via electronic interface contain original data; however they are lacking the format of the original report. Caution should be taken when reading/interpreti ng unformatted reports. Name: ? ANISHA MARTIN ? Accession #: ? [id number] ? : ? 1980 (Age: 32) ??F ? Collect Date: ? 01/30/2013 ? Location: ? [facility] ? Receive Date: ? 02/03/2013 ? Provider: URBANO DREW DO Copy to: ? Final Pathologic Diagnosis: A. ??SKIN OF BACK, MID, SHAVE BIOPSY: - Melanocytic nevus, compound type. B. ??SKIN OF NASAL FACIAL CREASE, RIGHT, SHAVE BIOPSY: - Melanocytic nevus, compound type. C. ??SKIN OF ARM, LEFT, SHAVE BIOPSY: - Melanocytic nevus, compound type. D. ??SKIN OF CHEST, LEFT, SHAVE BIOPSY: - Melanocytic nevus, compound type. E. ??SKIN OF ABDOMEN, SHAVE BIOPSY: - Melanocytic nevus, intradermal type. Microscopic Description: Sections are of a dome-shaped papule. ??The epidermis is of normal thickness but has a diminutive rete architecture. ??The papule is formed by a circumscribed and symmetric compound proliferation of melanocytes. ??The junctional component consists primarily of nests with single cells at the summit of the papule. ??The nests are generally small and evenly spaced. ??The melanocytes are slightly enlarged but have relatively uniform round-oval nuclei and a moderate amount of cytoplasm containing melanin pigment. ??The dermal component consists of nests, cords, and strands of similar melanocytes showing forest and conservation worker maturation with descent. ??(Dr. Rodriguez)/[facility] Document reviewed and electronically signed by: YURIY RODRIGUEZ MD Report ??Date: 02/05/2013 15:02 By the signature above, the attending physician certifies that he/she has personally conducted a gross and/or microscopic examination of the described specimens and rendered or confirmed the above diagnosis. Specimen(s) Received: A. ?Mid back B. ? Right nasal facial crease C. ? Left arm lesion D. ? Left chest lesion E. ? Abdomen lesion ? Clinical History: Pigmented skin lesions; clinical diagnosis code: ??239.2, V72.6 Gross Description: A. ?Received in formalin labelled with proper patient identification (initials B, N) and midback is a shave biopsy of rasheed skin (0.5 x 0.5 cm). There is an eccentric irregular rasheed-brown macule that measures 0.3 x 0.3 cm. Bisected and submitted in A1. B. ?Received in formalin labelled with proper patient identification (initials B, N) and right nasal facial crease is a shave biopsy of rasheed-white skin (0.5 x 0.4 cm). ??There is an ovoid rasheed macule that measures 0.3 x 0.2 cm. Bisected and submitted in B1. C. ?Received in formalin labelled with proper patient identification (initials B, N) and left arm lesion is a shave biopsy of rasheed-white skin (0.6 x 0.4 cm). ??There is an eccentric irregular rasheed-brown macule that measures 0.4 x 0.2 cm. ??Submitted intact in C1. D. ?Received in formalin labelled with proper patient identification (initials B, N) and left chest is a shave biopsy of rasheed-white skin (0.4 x 0.4 cm). ??There is an eccentric irregular rasheed-brown macule that measures 0.3 x 0.3 cm. Bisected and submitted in D1. E. ?Received in formalin labelled with proper patient identification (initials B, N) and abdomen lesion is a shave biopsy of rasheed-white skin (0.2 x 0.3 cm). ??There is an eccentric that measures circular rasheed-brown macule 0.2 x 0.2 cm. ??Submitted intact in E1. Shreya Barnes 02/04/2013 09:54 AM End of Report [facility] 01/30/2013 21:3 7 EDT 02/03/2013 21:37 EDT us Urbano Drew DO PATHOLOGY ORDERABLES Fi nal Result [facility] [address] [place] [address] documented in this encounter Visit Diagnoses Not on filedocumented in this encounter Care Teams Software Engineering Specialist Relationship Specialty Start Date End Date None, Provider PCP - General 11/30/11 03/11/14 documented as of this encounter
--- OUTSIDE RECORDS SUMMARY | 2024-05-01 00:07 | XMS_ITS | Encounter Summary ---
Author Organization [facility] [place] [address] [address] [place] [address] Care Team Providers Care Medical Lab Specialist Name Role Phone Unknown Primary Care Provider Ryan e Encounter Details Date Type Department Care Team (Late st Contact Info) Description 02/12/2024 Telephone [place] [phone] Ros Barrera MD [facility] [address] [place] [address] Social History Tobacco Use Types Packs/Day Years Used Date Smoking Tobacco: Former Smokeless Tobacco: Never Sex and Gender Information Value Date Recorded Sex Assigned at Not on file Gender Identity Not on file Sexual Orientation Not on file documented as of this encounter Miscellaneous Notes * Telephone Encounter - Samanta Miller - 02/12/2024 12:52 PM EDT Patient called and states she is returning providers call. Patient states she will also send provider a [facility] message. * Telephone Encounter - Sara Centeno - 02/12/2024 10:25 AM EDT CLINIC PHONE COVERAGE: Reason for Call: Returning a Call PCP: Unknown / Treating provider: Ros Barrera MD Message: Magalie called and stated they are returning a call from the department. Please call to assist. Did teletypewriter operator attempt to reach out to the clinic?: No Caller Name (If other than patient): self Relationship to Patient (if other than self): Patient Callback number: [phone] Best time you are available: Any Route Per Clinic Coverage Page documented in this encounter Plan of Treatment Upcoming Encounters Date Type Department Care Team (Late st Contact Info) Description 05/14/2024 11:30 AM EST Office [place] [address] Charles Martines MD [facility] [address] [place] [address] documented as of this encounter Visit Diagnoses Not on filedocumented in this encounter Care Teams Medical Lab Specialist Relationship Specialty Start Date End Date Unknown None PCP - General 04/17/23 documented as of this encounter
--- OUTSIDE RECORDS SUMMARY | 2024-05-01 00:07 | XMS_ITS | Encounter Summary ---
Author Organization [facility] Address [address] [place] [address] Care Team Providers Care Patternmaker All Around Name Role Phone None, Provider Primary Care Provider Unavailabl e Encounter Details Date Type Department Care Team (Late st Contact Info) Description 2012 Results Only [facility] Laboratory Services - [facility] ([facility]) [address] [place] [address] Tucker Chavira MD [address] [facility] [place] [address] Social History Tobacco Use Types [...] Date/Time Associated Diagnosis Comments SURGICAL PATHOLOGY Routine 2012 16 :38 EDT PAP TEST- RESULT ONLY Routine 2012 0:00 EDT documented in this encounter Results * SURGICAL PATHOLOGY (2012 16:38 EDT) Pathology Report: SURGICAL PATHOLOGY REPORT Reports generated via electronic interface contain original data; however they are lacking the format of the original report. Caution should be taken when reading/interpreti ng unformatted reports. Name: ? ANISHA MARTIN ? Accession #: ? [id number] ? : ? 1980 (Age: 32) ??F ? Collect Date: ? 2012 ? Location: ? [facility] ? Receive Date: ? 2012 ? Provider: TUCKER CHAVIRA MD Copy to: ? Final Pathologic Diagnosis: ? Endocervix, curettage: ? 1. Scant benign endocervical glands and metaplastic squamous cells. ??See comment. 2. Rare fragment of benign mature squamous mucosa. Comment: ? This case was reviewed in conjunction with the previous Pap smear ([id number]). ??There is no evidence of dysplasia in this curettage specimen. Deeper levels have been examined. ??(Dr. Hawthorne)/[facility] Document reviewed and electronically signed by: JEFFREY HAWTHORNE MD Report ??Date: 07/23/2012 10:12 By the signature above, the attending physician certifies that he/she has personally conducted a gross and/or microscopic examination of the described specimens and rendered or confirmed the above diagnosis. Specimen(s) Received: ? Endocervical curettage Clinical History: ? LEEP 12/26/11; ERIK II-III, involved endo cx margin; LMP: 06/29/12 Gross Description: ? Received in formalin labelled Clear, Anisha and endo cx is a 0.5 x 0.4 x 0.2 cm aggregate of rasheed-brown soft tissue fragments admixed with mucus. The specimen is submitted entirely as (1). ??(Dr. Kemp)/[facility] End of Report [facility] 2012 16:3 8 EDT 2012 16:38 EDT us Tucker Chavira MD PATHOLOGY ORDERABLES Final Re sult [facility] [address] [place] [address] * PAP TEST- RESULT ONLY (2012 0:00 EDT) Pathology Report: CYTOPATHOLOGY REPORT Reports generated via electronic interface contain original data; however they are lacking the format of the original report. Caution should be taken when reading/interpreti ng unformatted reports. Name: ? ANISHA MARTIN ? Accession #: ? [id number] : ? 1980 (Age: 32) ??F ?Collect Date: ? 2012 Location: ? [facility] ? Receive Date: ? 07/22/2012 Provider: ?TUCKER CHAVIRA MD Copy to: ? Specimen/Source: ?Pap Test, Cervix/Endocervix, ThinPrep Imaging System with manual evaluation Last Menstrual Period: ? 06/29/12 Previous Gynecologic Pathology: ? ERIK II: involved Endocx. margin ERIK III: involved Endocx. margin Other: ? Colposcopy Pap and/or biopsy in progress: ECC accompanies pap ? SPECIMEN ADEQUACY ? Satisfactory for Evaluation [...] Document reviewed and electronically signed by: ? TRIXIE LARKIN MD ? Report Date: ??07/24/2012 17:03 End of Report [facility] 2012 07/22/2012 us Tucker Chavira MD PATHOLOGY ORDERABLES Final Re sult [facility] [address] [place] [address] documented in this encounter Visit Diagnoses Not on filedocumented in this encounter Care Teams Patternmaker All Around Relationship Specialty Start Date End Date None, Provider PCP - General 11/30/11 03/11/14 documented as of this encounter
--- OUTSIDE RECORDS SUMMARY | 2024-05-01 00:07 | XMS_ITS | Encounter Summary ---
Author Organization [facility] Address [address] [place] [address] Care Team Providers Care Manager Transportation Planning Name Role Phone Stephani Kuhn Primary Care Provider [phone] Encounter Details Date Type Department Care Team (Late st Contact Info) Description 09/14/2020 Lab Requisition [facility] Pathology & Laboratory Medicine - [facility] [address] [place] [address] Outr Resulting Lab, Provider Social History Tobacco [...] Procedure Name Priority Date/Time Associated Diagnosis Comments QUANTIFERON TB GOLD PLUS Routine 09/13/2020 15:12 EDT documented in this encounter Results * QUANTIFERON TB GOLD PLUS (09/13/2020 15:12 EDT) Quantiferon Interpretation Negative Negative 09/15/2020 13:37 EDT [facility] Comment: No interferon-gamma response to M. tuberculosis antigens was detected. ??Infection with M. tuberculosis is unlikely. A single negative result does not exclude infection with M. tuberculosis. ??In patients at high risk for M. tuberculosis infection, a second test should be considered in accordance with the 2017 ATS/IDSA/CDC Clinical Practice Guidelines for Diagnosis of Tuberculosis in Adults and Children. [Surendra GLASGOW et. al. Clin. Infect. Dis. 2017:64 (2) ??: 111-115]. Results were obtained with the Qiagen QuantiFERON TB Gold Plus SOCO. TB1 Ag minus Nil 0.00 IU/ml 09/16/19 13:37 EDT [facility] TB2 Ag minus Nil 0.00 IU/mL 09/16/19 13:37 EDT [facility] Blood VENOUS BLOOD / Unknown 09/13/2020 15:12 EDT 09/14/2020 16:36 EDT Narrative [facility] - 09/15/2020 13:37 EDT Results were obtained with the Qiagen QuantiFERON-TB Gold Plus SOCO. us Provider Outr Resulting Lab CHEMISTRY & BLOOD GA S ORDERABLES Final Result [facility] [address] [place] [address] documented in this encounter Visit Diagnoses Not on filedocumented in this encounter Care Teams Manager Transportation Planning Relationship Specialty Start Date End Date Stephani Kuhn PA [address] [place] [address] PCP - General 03/12/14 documented as of this encounter
--- OUTSIDE RECORDS SUMMARY | 2024-05-01 00:07 | XMS_ITS | Clinical Summary ---
Author Organization [facility] Address [facility] [place] [address] Care Team Providers Care Machining Technician Name Role Phone Unknown Primary Care Provider Unavailabl e Allergies Active Allergy Reactions Criticality Noted Date Comments Penicillins 06/21/2016 Shellfish Containing Products 2016 Sulfa (Sulfonamide Antibiotics) 06/07 Medications Medication Sig Dispensed Refills Start Date End Date Status lamoTRIgine (LAMICTAL) 100 mg Tablet TAKE ONE TABLET BY MOUTH EVERY DAY 0 04/14/2016 Active doxycycline (VIBRAMYCIN) 100 mg CapsuleIndications :Perioral dermatitis Take 1 capsule by mouth daily. For 30 days 30 capsule 06/21/2016 Active Additional Information Patient not taking.Reported on 02/06/2024 metroNIDAZOLE (METROCREAM) 0.75 % CreamIndications:P erioral dermatitis Apply topically 2 times daily. As needed 45 g 5 06/21/2016 Active Additional Information Patient not taking.Reported on 02/06/2024 clindamycin-benzoy l peroxide (BENZACLIN) 1-5 % GelIndications:Acn e, unspecified acne type Apply topically to the face once daily 50 g 3 08/02/2016 Active Additional Information Patient not taking.Reported on 02/06/2024 clindamycin (Cleocin) 300 mg capsule TAKE TWO CAPSULES BY MOUTH EVERY 6 HOURS FOR RIGHT SHOULDER INFECTION FOR 30 DAYS 02/01/2024 Active EPINEPHrine (EpiPen) 0.3 mg/0.3 mL Auto-Injector Inject 0.3 mg into the muscle. 10/13/2022 Active BiomePRO 50 billion cell Capsule, Delayed Release(E.C.) ONE BY MOUTH EVERY DAY 01/21/2024 Active naproxen (Naprosyn) 250 mg tablet TAKE ONE TO TWO TABLETS BY MOUTH TWICE A DAY NEEDED MODERATE PAIN 01/03/2024 Active escitalopram (Lexapro) 20 mg tablet Take 20 mg by mouth daily. Active cefaDROXiL (Ultracef) 1 gram tablet Take 1 tablet by mouth 2 times daily. 60 tablet 3 02/08/2024 Active rifAMPin (Rifadin) 300 mg capsule Take 1 capsule by mouth 2 times daily for 120 days. 60 capsule 3 02/18/2024 06/17/2024 Active FLUoxetine (PROzac) 20 mg tablet Take 1 tablet by mouth Daily at Noon. 03/06/2024 Active lamoTRIgine (LaMICtal XR) 50 mg ER 24 hr tablet Take 50 mg by mouth daily. Total 150 mg per day 03/04/2024 Active Active Problems Problem Noted Date Diagnosed Date Joint infection 02/06/2024 Infection due to Cutibacterium species Traumatic tear of right rotator cuff 02/06/2024 Encounters Date Type Department Care Team Description 03/12/2024 1:25 PM EST Laboratory Appointment Lab [address] [place] [address] Joint infection 03/12/2024 10:30 AM EST Office [place] [address] Ros Barrera MD Joint infection; Infection due to Cutibacterium species; Traumatic tear of right rotator cuff, unspecified tear extent, sequela; Encounter for medication monitoring; High risk medication use 03/12/2024 Travel 02/12/2024 [place] [address] None 02/12/2024 Telephone [place] [address] Ros Barrera MD 02/06/2024 10:00 AM EDT Office [place] [address] Ros Barrera MD Joint infection; Infection due to Cutibacterium species; Traumatic tear of right rotator cuff, unspecified tear extent, sequela 02/06/2024 Travel 01/31/2024 Transcribe Orders eDH Incoming Referrals [phone] Russell Beavers MD Routine general medical examination at a health care facility from Last 3 Months Social History Tobacco Use Types Packs/Day Years Used Date Smoking Tobacco: Former Smokeless Tobacco: Never Tobacco Cessation:Counseling Given: Not Answered Sex and Gender Information Value Date Recorded Sex Assigned at Not on file Gender Identity Not on file Sexual Orientation Not on file Last Filed Vital Signs Vital Sign Reading [...] Mass Index 43.26 03/12/2024 10:37 AM EST Plan of Treatment Upcoming Encounters Date Type Department Care Team (Late st Contact Info) Description 05/14/2024 11:30 AM EST Office [place] [address] Charles Martines MD [facility] [place] [address] Health Maintenance Due Date Last Done Comments HIV screen 2000 Hepatitis C Screening 2000 Lipid Screening 2000 Hepatitis B vaccine (0-59 yrs) (1) 2001 Tetanus/Diphtheria/Pertussis Vaccines (1 - Tdap) 07/19 HPV test 2012 PAP Smear 2012 Breast Cancer Share Decision Needed 2022 Breast Cancer screening 2022 Covid-19 Vaccine ( season) 2024 Influenza (Flu) vaccine (1 o f 1 - Influenza standard series) 01/06/2024 Diabetes Screening (HgbA1C or Glucose) 03/12/2027 Procedures Procedure Name Priority Date/Time Associated Diagnosis Comments CBC (WITH DIFF) Routine 03/12/2024 11:44 AM EST Joint infection COMPREHENSIVE METABOLIC PANEL Routine 03/12/2024 11:44 AM EST Joint infection CRP, ACUTE INFLAMMATION Routine 03/12/2024 11:44 AM EST Joint infection from Last 3 Months Results * (ABNORMAL) CRP, acute inflammation (03/12/2024 11:44 AM EST) [facility] C-Reactive Protein 14.2(H) <=4.9 mg/L 03/12/2024 12:38 PM EST [facility] Blood VENOUS BLOOD SPECIMEN / Unknown Venipuncture / Unknown 03/12/2024 11:44 AM EST 03/12/2024 11:44 AM EST Charles Martines MD CHEMISTRY ORDERAB LES Performing Organization Address City/State/[facility] Co de Phone Number [facility] [place] [address] * CBC (with Diff) (03/12/2024 11:44 AM EST) Pathologist [facility] White Blood Cell 7.53 4.00 - 9.50 x10(3)/mcL 03/12/2024 11:59 AM EST [facility] Red Blood Cell 4.29 4.00 - 5.21 x10(6)/mcL 03/12/2024 11:59 AM EST [facility] Hemoglobin 12.6 11.7 - 15.5 g/dL 03/12/2024 11:59 AM EST [facility] Hematocrit 37.4 35.7 - 45.8 % 03/12/2024 11:59 AM EST [facility] Mean Cell Volume 87.2 82.6 - 94.4 fL 03/12/2024 11:59 AM [facility] Mean Cell Hemoglobin 29.4 27.1 - 32.0 pg 03/12/2024 11:59 AM [facility] Mean Cell Hemoglobin Concentration 33.7 31.7 - 35.0 g/dL 03/12/2024 11:59 AM [facility] Platelet 229 145 - 357 x10(3)/mcL 03/12/2024 11:59 AM [facility] Mean Platelet Volume 10.0 7.6 - 12.9 fL 03/12/2024 11:59 AM [facility] RDW Standard Deviation 41.1 37.0 - 46.0 fL 03/12/2024 11:59 AM [facility] RDW coefficient of variation 13.2 11.5 - 14.1 % 03/12/2024 11:59 AM [facility] NRBC% auto 0.0 % 03/12/2024 11:59 AM [facility] NRBC Absolute <0.01 <0.01 x10(3)/mcL 03/12/2024 11:59 AM [facility] Neutrophil % 65.3 % 03/12/2024 11:59 AM [facility] Neutrophil Absolute (ANC) - Automated 4.92 1.70 - 6.10 x10(3)/mcL 03/12/2024 11:59 AM [facility] Lymph % 26.3 % 03/12/2024 11:59 AM [facility] Lymph Absolute 1.98 0.90 - 3.20 x10(3)/mcL 03/12/2024 11:59 AM [facility] Monocyte % 5.2 % 03/12/2024 11:59 AM [facility] Monocyte Absolute 0.39 0.30 - 0.90 x10(3)/mcL 03/12/2024 11:59 AM [facility] Eos % 2.4 % 03/12/2024 11:59 AM [facility] Eos Absolute 0.18 0.00 - 0.40 x10(3)/mcL 03/12/2024 11:59 AM [facility] Basophil % 0.3 % 03/12/2024 11:59 AM [facility] Baso Absolute <0.04 0.00 - 0.10 x10(3)/mcL 03/12/2024 11:59 AM [facility] Immature Gran % 0.5 % 11:59 AM [facility] Immature Gran Absolute 0.04 0.00 - 0.04 x10(3)/mcL 03/12/2024 11:59 AM [facility] Blood VENOUS BLOOD SPECIMEN / Unknown Venipuncture / Unknown 03/12/2024 11:44 AM EST 03/12/2024 11:44 AM EST Charles Martines MD HEMATOLOGY ORDERA BLES Performing Organization Address City/State/[facility] Co de Phone Number [facility] [place] [address] * (ABNORMAL) Comprehensive metabolic panel Non-fasting (03/12/2024 11:44 AM EST) Glucose 85 65 - 199 mg/dL 03/12/2024 12:38 PM [facility] Comment:Glucose Concentratio n >=200 mg/dL plus symptoms is consistent with Diabetes Mellitus. Blood Urea Nitrogen 10 8 - 18 mg/dL 03/12/2024 12:38 PM [facility] Creatinine 0.74 0.70 - 1.20 mg/dL 03/12/2024 12:38 PM [facility] Sodium 140 135 - 145 mMol/L 03/12/2024 12:38 PM [facility] Potassium 4.2 3.5 - 5.0 mMol/L 03/12/2024 12:38 PM [facility] Chloride 106 98 - 107 mMol/L 03/12/2024 12:38 PM [facility] Carbon Dioxide 24 22 - 31 mMol/L 03/12/2024 12:38 PM [facility] Anion Gap 10 5 - 15 mMol/L 03/12/2024 12:38 PM [facility] Calcium 9.2 8.5 - 10.5 mg/dL 03/12/2024 12:38 PM [facility] Protein, Total 7.2 6.1 - 8.0 g/dL 03/12/2024 12:38 PM [facility] Albumin 4.2 3.2 - 5.2 g/dL 03/12/2024 12:38 PM [facility] Aspartate Aminotransferase 18 <=30 unit/L 03/12/2024 12:38 PM [facility] Alanine Aminotransferase 26 0 - 30 unit/L 03/12/2024 12:38 PM [facility] Alkaline Phosphatase 109(H) 35 - 105 unit/L 03/12/2024 12:38 PM [facility] Bilirubin, Total 0.2 <=1.3 mg/dL 03/12/2024 12:38 PM [facility] Est Glomerular Filtration Rate - Female 104 mL/min/1. 73 m?? 03/12/2024 12:38 PM [facility] Comment: This patient's estimated GFR [...] Foundation Fasting Status No 03/12/2024 12:38 PM [facility] Blood VENOUS BLOOD SPECIMEN / Unknown Venipuncture / Unknown 03/12/2024 11:44 AM EST 03/12/2024 11:44 AM EST Charles Martines MD CHEMISTRY ORDERAB LES [facility] [place] [address] from Last 3 Months Care Teams Machining Technician Relationship Specialty Start Date End Date Unknown None PCP - General 04/17/23
--- OUTSIDE RECORDS SUMMARY | 2024-05-01 00:07 | XMS_ITS | Encounter Summary ---
Author Organization [facility] Address [address] [place] [address] Care Team Providers Care Automobile Club Membership Sales Agent Name Role Phone Stephani Kuhn Primary Care Provider [phone] Encounter Details Date Type Department Care Team (Late st Contact Info) Description 12/28/2020 Lab Requisition [facility] Pathology & Laboratory Medicine - [address] [id number] Outr Resulting Lab, Provider Social History Tobacco [...] RNA BY PCR Routine 12/27/2020 15:32 EDT documented in this encounter Results * HEPATITIS C AB W REFLEX TO HCV RNA BY PCR (12/27/2020 15:32 EDT) Hep C Antibody Negative Negative 12/28/2020 14:57 EDT [facility] Blood VENOUS BLOOD / Unknown 12/27/2020 15:32 EDT 12/28/2020 13:50 EDT us Provider Outr Resulting Lab CHEMISTRY & BLOOD GA S ORDERABLES Final Result [facility] [address] [place] [address] documented in this encounter Visit Diagnoses Not on filedocumented in this encounter Care Teams Automobile Club Membership Sales Agent Relationship Specialty Start Date End Date Stephani Kuhn PA [address] [place] [address] PCP - General 03/12/14 documented as of this encounter
--- OUTSIDE RECORDS SUMMARY | 2024-05-01 00:07 | XMS_ITS | Encounter Summary ---
[place] [address] Care Team Providers Care Delivery Rn Name Role Phone Deisy Cummings DO Primary Care Provider Unava ilable Reason for Referral * Diagnostic Test (Routine) - Closed Specialty Diagnoses / Procedures Referred By Contac t Referred To Contact Radiology Diagnoses Tear of left acetabular labrum, initial encounter Procedures MRI Arthrogram Hip Left Russell Beavers MD [address] [place] [address] [place] [address] Referral ID Status Reason Start Date Expiration Date V isits Requested Visits Authorized [id number] Closed Specialty Service Requested 01/04/2022 07/05/2023 1 1 Reason for Visit * Diagnostic Test (Routine) - Closed Specialty Diagnoses / Procedures Referred By Contac t Referred To Contact Radiology Diagnoses Tear of left acetabular labrum, initial encounter Procedures MRI Arthrogram Hip Left Russell Beavers MD [address] [place] [address] [place] [address] Referral ID Status Reason Start Date Expiration Date V isits Requested Visits Authorized [id number] Closed Specialty Service Requested 01/04/2022 07/05/2023 1 1 Encounter Details Date Type Department Care Team (Latest Contact Info) Description 01/11/2022 10:32 AM EDT - 01/11/2022 11:59 PM EDT Hospital [place] [phone] Russell Beavers MD [address] [place] [address] Tear of left acetabular labrum, initial encounter Discharge Disposition: Home Social History Tobacco Use Types Packs/Day Years Used Date Smoking Tobacco: Former Sex and Gender Information Value Date Recorded Sex Assigned at Not on file Gender Identity Not on file Sexual Orientation Not on file documented as of this encounter Medications at Time of Discharge Medication Sig Dispensed Refills Start Date End Date lamoTRIgine (LAMICTAL) 100 mg Tablet TAKE ONE TABLET BY MOUTH EVERY DAY 0 04/14/2016 clindamycin-benzoyl peroxide (BENZACLIN) 1-5 % GelIndications:Acne, unspecified acne type Apply topically to the face once daily 50 g 3 08/02/2016 doxycycline (VIBRAMYCIN) 100 mg CapsuleIndications:Per ioral dermatitis Take 1 capsule by mouth daily. For 30 days 30 capsule 06/21/2016 metroNIDAZOLE (METROCREAM) 0.75 % CreamIndications:Perio ral dermatitis Apply topically 2 times daily. As needed 45 g 5 06/21/2016 escitalopram (LEXAPRO) 10 mg Tablet TAKE ONE TABLET BY MOUTH EVERY DAY 0 04/14/2016 02/06/2024 documented as of this encounter Plan of Treatment Upcoming Encounters Date Type Department Care Team (Late st Contact Info) Description 05/14/2024 11:30 AM EST Office Visit [place] [phone] Charles Martines MD [facility] [place] [address] documented as of this encounter Procedures Procedure Name Priority Date/Time Associated Diagnosis Comments MRI ARTHROGRAM HIP LEFT Routine 01/11/2022 1:12 PM EDT Tear of left acetabular labrum, initial encounter documented in this encounter Results * (ABNORMAL) MRI Arthrogram Hip Left (01/11/2022 1:12 PM EDT) Anatomical Region Laterality Modality Hip Left Magnetic Resonan ce Impressions 01/11/2022 2:14 PM EDT 1. ??Anterior superior labral tear with intact cartilage throughout the left hip. There is also some labral fraying of the superior and anterior labrum. 2. ??Tendinosis of the bilateral insertional gluteal tendons. 3. ??Unexpected finding: Heterogeneous signal in the prominent left adnexa with both STIR intermediate and STIR hyperintense components is incompletely evaluated. Recommend dedicated ultrasound of the pelvis for further evaluation. Thank you for letting us participate in the care of this patient. ??If you are a health care provider and have any questions regarding this report, please contact the number below. ??For patients who have questions please contact the health skin care consultant that requested your imaging first. ? Electronically signed by: Suzanne Cummins MD, [facility] ([phone]), at 01/11/2022 2:14 PM Narrative 01/11/2022 2:14 PM EDT EXAMINATION: MRI ARTHROGRAM HIP LEFT CLINICAL HISTORY: ??labral tear - pain left hip (as entered by ordering provider in the order requisition) TECHNIQUE: MR arthrogram of the left hip was performed after erosions instillation of gadolinium-based contrast into the left hip joint space. Large field view sequences through the pelvis include coronal STIR, coronal T1. Small tjevq-pb-pfxv sequences through the left hip include coronal T1 with fat saturation, coronal T2 with fat saturation, sagittal proton density with fat saturation, axial proton density fat saturation, axial oblique T1 with fat saturation. COMPARISON: Fluoroscopic images from the same day. FINDINGS: Right hip: Normal alignment of the right hip. No hip joint effusion. The ligamentum teres is intact. Large ltmcl-kq-qubw sequences limit evaluation of the cartilage in labrum. No acute fracture or bone marrow replacing lesion. Left hip: The left hip joint space is distended with gadolinium-based contrast. The ligamentum teres is intact. No acute fracture or bone marrow replacing lesion. Normal alignment of the left hip. There is fraying and blunting of the superior labrum. There is mild undersurface fraying of the anterior labrum. There is an undersurface tear of the anterior superior labrum. (Series 5, image 11). Adjacent cartilage of the anterior femoral head and acetabulum is intact. Cartilage is intact throughout the acetabulum and femoral head. Other bones and joints: No acute fracture or bone marrow replacing lesion in the remainder of the visualized pelvis and lower lumbar spine. No fluid distention, particularly erosions, or joint effusions are seen in the sacroiliac joints. There are tiny, subcentimeter nonspecific STIR hyperintense foci along the iliac side of the right sacroiliac joint (series 2, image 38 and 37), nonspecific. Tendons and muscles: The origin of the bilateral hamstrings tendons are intact. The bilateral insertional gluteal tendons is intact. There is minimal peritendinous edema around the insertional left gluteal tendons, consistent with tendinosis. There is also small amount peritendinous edema around the insertional right gluteal tendons, consistent with tendinosis. No disruption of the bilateral insertional iliopsoas tendons. Normal symmetric bulk and signal of visualized muscles. Other soft tissues: Normal signal and caliber the bilateral sciatic nerves. Limited evaluation of intrapelvic organs: There is a heterogeneous STIR intermediate and hyperintense appearance of the left adnexa, incompletely evaluated. Resulting Agency Comment Unexpected Finding Russell Beavers MD IMG MRI ORDERABLES documented in this encounter Visit Diagnoses Diagnosis Tear of left acetabular labrum, initial encounter documented in this encounter Care Teams Delivery Rn Relationship Specialty Start Date End Date Deisy Cummings DO PCP - General 03/17/14 04/16/23 documented as of this encounter
--- OUTSIDE RECORDS SUMMARY | 2024-05-01 00:07 | XMS_ITS | Encounter Summary ---
Author Organization [facility] [place] [address] Care Team Providers Care Eyewear Consultant Name Role Phone Unknown Primary Care Provider Unavailabl e Encounter Details Date Type Department Care Team (Latest Contact Info) Description 03/12/2024 1:25 PM EST Laboratory Appointment Lab [address] [place] [phone] Joint infection Social History Tobacco Use Types Packs/Day Years [...] AM EST Office [place] [address] Charles Martines MD [facility] [place] [address] documented as of this encounter Procedures Procedure Name Priority Date/Time Associated Diagnosis Comments CRP, ACUTE INFLAMMATION Routine 03/12/2024 11:44 AM EST Joint infection CBC (WITH DIFF) Routine 03/12/2024 11:44 AM EST Joint infection COMPREHENSIVE METABOLIC PANEL Routine 03/12/2024 11:44 AM EST Joint infection documented in this encounter Results * CBC (with Diff) (03/12/2024 11:44 AM [facility]) [facility] White Blood Cell 7.53 4.00 - 9.50 x10(3)/mcL 03/12/2024 11:59 AM [facility] Red Blood Cell 4.29 4.00 - 5.21 x10(6)/mcL 03/12/2024 11:59 AM [facility] Hemoglobin 12.6 11.7 - 15.5 g/dL 03/12/2024 11:59 AM [facility] Hematocrit 37.4 35.7 - 45.8 % 03/12/2024 11:59 AM [facility] Mean Cell Volume 87.2 82.6 - 94.4 fL 03/12/2024 11:59 AM [facility] Mean Cell Hemoglobin 29.4 27.1 - 32.0 pg 03/12/2024 11:59 AM [facility] Mean Cell Hemoglobin Concentration 33.7 31.7 - 35.0 g/dL 03/12/2024 11:59 AM [facility] Platelet 229 145 - 357 x10(3)/[facility] 03/12/2024 11:59 AM [facility] Mean Platelet Volume 10.0 7.6 - 12.9 fL 03/12/2024 11:59 AM [facility] RDW Standard Deviation 41.1 37.0 - 46.0 fL 03/12/2024 11:59 AM [facility] RDW coefficient of variation 13.2 11.5 - 14.1 % 03/12/2024 11:59 AM [facility] NRBC% auto 0.0 % 03/12/2024 11:59 AM [facility] NRBC Absolute <0.01 <0.01 x10(3)/mcL 03/12/2024 11:59 AM [facility] Neutrophil % 65.3 % 03/12/2024 11:59 AM [facility] Neutrophil Absolute (ANC) - Automated 4.92 1.70 - 6.10 x10(3)/mcL 03/12/2024 11:59 AM EST [facility] Lymph % 26.3 % 03/12/2024 11:59 AM EST [facility] Lymph Absolute 1.98 0.90 - 3.20 x10(3)/mcL 03/12/2024 11:59 AM EST [facility] Monocyte % 5.2 % 03/12/2024 11:59 AM EST [facility] Monocyte Absolute 0.39 0.30 - 0.90 x10(3)/mcL 03/12/2024 11:59 AM EST [facility] Eos % 2.4 % 03/12/2024 11:59 AM [facility] Eos Absolute 0.18 0.00 - 0.40 x10(3)/mcL 03/12/2024 11:59 AM EST [facility] Basophil % 0.3 % 03/12/2024 11:59 AM [facility] Baso Absolute <0.04 0.00 - 0.10 x10(3)/mcL 03/12/2024 11:59 AM [facility] Immature Gran % 0.5 % 11:59 AM [facility] Immature Gran Absolute 0.04 0.00 - 0.04 x10(3)/mcL 03/12/2024 11:59 AM [facility] Blood VENOUS BLOOD SPECIMEN / Unknown Venipuncture / Unknown 03/12/2024 11:44 AM EST 03/12/2024 11:44 AM EST Charles Martines MD HEMATOLOGY ORDERA BLES [facility] [place] [address] * (ABNORMAL) Comprehensive metabolic panel Non-fasting (03/12/2024 11:44 AM EST) Glucose 85 65 - 199 mg/dL 03/12/2024 12:38 PM [facility] Comment:Glucose Concentratio n >=200 mg/dL plus symptoms is consistent with Diabetes Mellitus. Blood Urea Nitrogen 10 8 - 18 mg/dL 03/12/2024 12:38 PM [facility] Creatinine 0.74 0.70 - 1.20 mg/dL 03/12/2024 12:38 PM [facility] Sodium 140 135 - 145 mMol/L 03/12/2024 12:38 PM [facility] Potassium 4.2 3.5 - 5.0 mMol/L 03/12/2024 12:38 PM [facility] Chloride 106 98 - 107 mMol/L 03/12/2024 12:38 PM [facility] Carbon Dioxide 24 22 - 31 mMol/L 03/12/2024 12:38 PM [facility] Anion Gap 10 5 - 15 mMol/L 03/12/2024 12:38 PM [facility] Calcium 9.2 8.5 - 10.5 mg/dL 03/12/2024 12:38 PM [facility] Protein, Total 7.2 6.1 - 8.0 g/dL 03/12/2024 12:38 PM [facility] Albumin 4.2 3.2 - 5.2 g/dL 03/12/2024 12:38 PM [facility] Aspartate Aminotransferase 18 <=30 unit/L 03/12/2024 12:38 PM [facility] Alanine Aminotransferase 26 0 - 30 unit/L 03/12/2024 12:38 PM [facility] Alkaline Phosphatase 109(H) 35 - 105 unit/L 03/12/2024 12:38 PM [facility] Bilirubin, Total 0.2 <=1.3 mg/dL 03/12/2024 12:38 PM [facility] Est Glomerular Filtration Rate - Female 104 mL/min/1. 73 m?? 03/12/2024 12:38 PM [facility] Comment: This patient's estimated GFR was [...] Foundation Fasting Status No 03/12/2024 12:38 PM EST [facility] Blood VENOUS BLOOD SPECIMEN / Unknown Venipuncture / Unknown 03/12/2024 11:44 AM EST 03/12/2024 11:44 AM EST Charles Martines MD CHEMISTRY ORDERAB LES Performing Organization Address City/[facility]/ZIP Co de Phone Number [facility] [place] [address] * (ABNORMAL) CRP, acute inflammation (03/12/2024 11:44 AM EST) C-Reactive Protein 14.2(H) <=4.9 mg/L 03/12/2024 12:38 PM EST [facility] Blood VENOUS BLOOD SPECIMEN / Unknown Venipuncture / Unknown 03/12/2024 11:44 AM EST 03/12/2024 11:44 AM EST Charles Martines MD CHEMISTRY ORDERAB LES Performing Organization Address City/[facility]/ZIP Co de Phone Number [facility] [place] [address] documented in this encounter Visit Diagnoses Diagnosis Joint infection Unspecified infective arthritis, multiple sites documented in this encounter Care Teams Eyewear Consultant Relationship Specialty Start Date End Date Unknown None PCP - General 04/17/23 documented as of this encounter
--- OUTSIDE RECORDS SUMMARY | 2024-05-01 00:07 | XMS_ITS | Encounter Summary ---
[place] [address] Care Team Providers Care Printer Slotter Operator Name Role Phone Unknown Primary Care Provider Unavailabl e Reason for Visit * Reason Onset Date Comments Other 01/29/2024 Provider to prov ider call Encounter Details Date Type Department Care Team (Late st Contact Info) Description 01/29/2024 Telephone [place] [address] None None Other (Provider to provider call) Social History Tobacco Use Types Packs/Day Years Used Date Smoking Tobacco: Former Sex and Gender Information Value Date Recorded Sex Assigned at Not on file Gender Identity Not on file Sexual Orientation Not on file documented as of this encounter Miscellaneous Notes * Telephone Encounter - Niko Stephenson W - 01/30/2024 10:17 AM EDTSummary: Returning Call / Provider Office Calling CLINIC PHONE COVERAGE: Reason for Call: Provider Call PCP: Unknown / Treating provider: Russell Beavers Request Type: Provider call Name of Provider: Russell Beavers Name of Facility they are calling from: [facility] Details: Celia from [facility] returning calls to office from 01/30/24 and 01/28/24 about setting up an appointment for patient. Please call to assist. Marking high priority from last message in 01/28/24 encounter. Please call to further assist. Caller Name (If other than patient): Celia Relationship to Patient (if other than self): Orthopedics Callback number: [phone] ask for Celia Best time you are available: Any Route Per Clinic Coverage Page * Telephone Encounter - Shannon Carrillo - 01/30/2024 8:15 AM EDT Email sent * Telephone Encounter - Elin Meyers - 01/29/2024 8:47 AM EDT CLINIC PHONE COVERAGE: Reason for Call: Provider Call PCP: Unknown / Treating provider: Rsusell Beavers Request Type: Provider call Name of Provider: Russell Beavers Name of Facility they are calling from: [facility] Details: Yoana returning a call, Patient has a P Acne infection in her shoulder. Patient was treated with Amoxicillin and 10 days into treatment developed a full body rash . Yoana is looking for Guidance on what other medication she can be given . They also sent over a referral and were looking to see if we received it . Caller Name (If other than patient): Yoana Relationship to Patient (if other than self): [facility] Callback number: [phone] Best time you are available: Any Route Per Clinic Coverage Page documented in this encounter Plan of Treatment Upcoming Encounters Date Type Department Care Team (Late st Contact Info) Description 05/14/2024 11:30 AM EST Office Visit [place] [address] Charles Martines MD [facility] [place] [address] documented as of this encounter Visit Diagnoses Not on filedocumented in this encounter Care Teams Printer Slotter Operator Relationship Specialty Start Date End Date Unknown None PCP - General 04/17/23 documented as of this encounter
--- OUTSIDE RECORDS SUMMARY | 2024-05-01 00:07 | XMS_ITS | Encounter Summary ---
Author Organization [facility] Address [address] [place] [address] Care Team Providers Care Director Of Psychology Name Role Phone Abdon Pressleyeen Desi FERRERA Primary Care Provider + None, Provider Primary Care Provider Stephani Rivas Primary Care Provider [phone] Encounter Details Date Type Department Care Team (Late st Contact Info) Description 12/08/2010 Historical Results Only [facility] - Main [place] [address] [place] [address] Aamir Barone DO [address] [facility], [address] [place] [address] Social History Tobacco Use Types [...] Date/Time Associated Diagnosis Comments PAP TEST Routine 12/08/2010 documented in this encounter Results * PAP TEST (12/08/2010) 12/08/2010 12/08/2010 16: 24 EDT Narrative [facility] - 12/14/2010 14:27 EDT ----- ------- Name: GEOVANNYANISHA Weeks ?: [birth year] ?Age/Sex: 38/F ?Unit#: [id number] ? Loc: AGO ? Status: REG POV ?? Reg Date: 12/08/10 ? Pt.Phone Number: ? ----- ------- Specimen: [id number] ?STATUS: SOUT ?Spec Date:12/08/10 ? Physician Copies: ?Aamir Barone DO Tissues: ? Cervical/Endo Pap ?Paulina Oglesby ??DO N CPT: 61947 ?? Units: ??1 ----- ------- ? CYTOLOGY DIAGNOSIS SPECIMEN ADEQUACY: ?Satisfactory for evaluation. Transformation zone component ABSENT. GENERAL CATEGORIZATION: ?Epithelial Cell Abnormality. DESCRIPTIVE DIAGNOSIS: ?Squamous Cell Abnormality - Low grade squamous intraepithelial lesion (LSIL). RECOMMENDATIONS/COMMENTS: ??Recommend following the 2006 Consensus Guidelines for the Management of ??Women with Cervical Cytologic Abnormalities. ?? Management algorithms have been distributed and are also available online at [email or web address]/consensus.shtml. ----- ------- ORDER QUERIES: LMP: 11/22/10 - WNL ? N Post ? N ??PREVIOUS ATYPICAL: Y BCP/HRT? N Rad Rx? N IUD? N ??PAP PLUS HPV? N ??REFLEX TO HR-HPV IF ASCUS ?? REFLEX TO HPV 16/18 IF HPV POS/PAP NEG ?? HPV REGARDLESS?RFLX HPV IF LSIL ?? IF ASCUS DO HPV? Y Signed ____(signature on file)____ Kaylene Rai M.D. 12/14/10 By the signature above, the attending physician certifies that he/she has personally conducted a gross and/or microscopic examination of the described specimens and rendered or confirmed the above diagnosis. Test Performed by [facility], [address] [place] [address] Investigator Vice: Kaylene Rai MD PHD ----- ------- us Aamir Barone DO PATHOLOGY ORDERABLES Final Res ult [facility] documented in this encounter Visit Diagnoses Not on filedocumented in this encounter Care Teams Director Of Psychology Relationship Specialty Start Date End Date Deisy Pressley APRN [address] [place] [phone] PCP - General 02/24/09 11/29/11 None, Provider PCP - General 11/30/11 03/11/14 Stephani Kuhn PA [address] [place] [address] PCP - General 03/12/14 documented as of this encounter
--- OUTSIDE RECORDS SUMMARY | 2024-05-01 00:07 | XMS_ITS | Encounter Summary ---
Author Organization [facility] Address [address] [place] [address] Care Team Providers Care Litigation Legal Secretary Name Role Phone None, Provider Primary Care Provider Unavailabl e Encounter Details Date Type Department Care Team (Late st Contact Info) Description 12/26/2011 Results Only [facility] - [facility] [address] [place] [address] Tucker Chavira MD [address] [facility] [place] [address] Social History Tobacco Use Types [...] Date/Time Associated Diagnosis Comments SURGICAL PATHOLOGY Routine 12/26/2011 0:00 EDT documented in this encounter Results * SURGICAL PATHOLOGY (12/26/2011 0:00 EDT) Pathology Report: SURGICAL PATHOLOGY REPORT Reports generated via electronic interface contain original data; however they are lacking the format of the original report. Caution should be taken when reading/interpreti ng unformatted reports. Name: ? ANISHA MARTIN ? Accession #: ? [id number] ? : ? 1980 (Age: 31) ??F ? Collect Date: ? 12/26/2011 ? Location: ? [facility] ? Receive Date: ? 12/27/2011 ? Provider: TUCKER CHAVIRA MD Copy to: ? Final Pathologic Diagnosis: ? Cervix, LEEP, excision: 1. 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 ? Endocervical margin is positive (focally involved by ERIK II). 3. ?Transformation zone mucosa with acute and chronic cervicitis. ? Comment: ? Gear Coding Machine Operator sections of this case have been reviewed in intradepartmental consultation conference. Document reviewed and electronically signed by: KAUSHIK CHAVIRA MD Report ??Date: 12/30/2011 15:48 By the signature above, the attending physician certifies that he/she has personally conducted a gross and/or microscopic examination of the described specimens and rendered or confirmed the above diagnosis. Specimen(s) Received: ? Ectocervix Clinical History: ? LMP: nursing. ERIK III + ECC Gross Description: ? Received in formalin labelled [place], Anisha and ectocervix are two irregular and unoriented pieces of cervix that are 1.3 x 0.7 x 0.3 cm and 1.5 x 1.0 x 0.5 cm. ??Each piece is surfaced on one side by pink-rasheed, smooth, ectocervical mucosa and each piece has one edge with minimal focal pink, granular, endocervical mucosa. ??The ectocervical margins are inked black and the endocervical margins are inked blue. ??The larger piece is serially sectioned and entirely submitted in (A1)-(A4) and the smaller piece is serially sectioned and entirely submitted in (A5)-(A7). ??(Darcy Antonio)/mpl End of Report [facility] 12/26/2011 12/27/2011 8:4 7 EDT us Tucker Chavira MD PATHOLOGY ORDERABLES Final Re sult [facility] [address] [place] [address] documented in this encounter Visit Diagnoses Not on filedocumented in this encounter Care Teams Litigation Legal Secretary Relationship Specialty Start Date End Date None, Provider PCP - General 11/30/11 03/11/14 documented as of this encounter
--- OUTSIDE RECORDS SUMMARY | 2024-05-01 00:07 | XMS_ITS | Encounter Summary ---
Author Organization [facility] Address [address] [place] [address] Care Team Providers Care Feed Mill Lab Technician Name Role Phone None, Provider Primary Care Provider Unavailabl e Encounter Details Date Type Department Care Team (Late st Contact Info) Description 02/25/2014 Results Only [facility] Laboratory Services - [facility] ([facility]) [address] [place], [place] [id number] Pawel Dewitt MD [address] [place] [address] Social History Tobacco Use Types Packs/Day Years [...] Diagnosis Comments PAP TEST- RESULT ONLY Routine 02/25/2014 0:00 EDT documented in this encounter Results * PAP TEST- RESULT ONLY (02/25/2014 0:00 EDT) Pathology Report: CYTOPATHOLOGY REPORT Reports generated via electronic interface contain original data; however they are lacking the format of the original report. Caution should be taken when reading/interpreti ng unformatted reports. Name: ? ANISHA MARTIN ? Accession #: ? [id number] ? : ? 1980 (Age: 33) ??F ?Collect Date: ? 02/25/2014 ? Location: ? [facility] ? Receive Date: ? 02/27/2014 ? Provider: PAWEL DEWITT MD Copy to: ? Final Report SPECIMEN ADEQUACY ? Satisfactory for Evaluation - transformation zone component present GENERAL CATEGORIZATION ? Negative for Intraepithelial Lesion or Malignancy INTERPRETATION ? Reactive cellular changes associated with inflammation present (includes repair). Specimen/Source: ??Pap Test, Cervix/Endocervix, ThinPrep Imaging System with manual evaluation Document reviewed and electronically signed by: ? ROBIN MONTEMAYOR MD ? Report ??Date: 03/06/2014 15:45 HPV with Pap Test ? Date Ordered: ? 03/06/2014 ? Status: ?? Signed Out ?Date Complete: ? 03/10/2014 ? By: ??System Interface ? Date Reported: ? 03/10/2014 ? Interpretation RESULT: Positive for high or intermediate risk HPV. E6 OR E7 mRNA from one or more types of HPV types 16,18,31, 33,35,39,45,51,52, 56,58,59,66, and 68 is detected by assessment clinician mediated amplification. High and intermediate risk HPV types are associated with most squamous intraepithelial lesions and cervical cancers. Comments Document reviewed and electronically signed by: ? System Interface ? Report date: 03/10/2014 By the signature above, the attending physician certifies that he/she has personally conducted a gross and/or microscopic examination of the described specimens and rendered or confirmed the above diagnosis. End of Report [facility] 02/25/2014 02/27/2014 us Pawel Dewitt MD PATHOLOGY ORDERABLES Final Res ult [facility] [address] [place] [address] documented in this encounter Visit Diagnoses Not on filedocumented in this encounter Care Teams Feed Mill Lab Technician Relationship Specialty Start Date End Date None, Provider PCP - General 11/30/11 03/11/14 documented as of this encounter
--- OUTSIDE RECORDS SUMMARY | 2024-05-01 00:07 | XMS_ITS | Encounter Summary ---
Author Organization [facility] Address [address] [place] [address] Care Team Providers Care Road Conductor Name Role Phone None, Provider Primary Care Provider Unavailabl e Encounter Details Date Type Department Care Team (Late st Contact Info) Description 03/10/2014 Results Only [facility] Laboratory Services - [facility] ([facility] [address] [place], [place] [id number] Pawel Dewitt MD [address] [place] [address] Social History Tobacco Use Types Packs/Day Years [...] Date/Time Associated Diagnosis Comments SURGICAL PATHOLOGY Routine 03/10/2014 10 :02 EST documented in this encounter Results * SURGICAL PATHOLOGY (03/10/2014 10:02 EST) Pathology Report: SURGICAL PATHOLOGY REPORT Reports generated via electronic interface contain original data; however they are lacking the format of the original report. Caution should be taken when reading/interpret ing unformatted reports. Name: ? ANISHA MARTIN ? Accession #: ? [id number] ? : ? 1980 (Age: 33) ??F ? Collect Date: ? 03/10/2014 ? Location: ? [facility] ? Receive Date: ? 03/10/2014 ? Provider: PAWEL DEWITT MD Copy to: KAIA HU ? Final Pathologic Diagnosis: ENDOMETRIUM, CURETTAGE: - ??Secretory endometrium. - ??Fragments of benign endocervical tissue with squamous metaplasia. Document reviewed and electronically signed by: MARIA D LYONS MD Report ??Date: 03/12/2014 16:03 By the signature above, the attending physician certifies that he/she has personally conducted a gross and/or microscopic examination of the described specimens and rendered or confirmed the above diagnosis. Specimen(s) Received: Endometrial curettings Clinical History: Menorrhagia; clinical diagnosis code: 626.2, 625.3 Gross Description: ? Received in formalin labelled with proper patient identification (initials B, N) and endometrial curettings is an aggregate of red-brown tissue and clotted blood (2.5 x 1.5 x 0.5 cm). Submitted in toto in blocks 1 and 2. Camelia Cavanaugh 03/11/2014 10:44 AM End of Report [facility] 03/10/2014 10:0 2 EST 03/10/2014 10:02 EST us Pawel Dewitt MD PATHOLOGY ORDERABLES Final Res ult [facility] [address] [place] [address] documented in this encounter Visit Diagnoses Not on filedocumented in this encounter Care Teams Road Conductor Relationship Specialty Start Date End Date None, Provider PCP - General 11/30/11 03/11/14 documented as of this encounter
--- OUTSIDE RECORDS SUMMARY | 2024-05-01 00:07 | XMS_ITS | Encounter Summary ---
Author Organization [facility] Address [address] [place] [address] Care Team Providers Care Gimp Tacker Name Role Phone Stephani Kuhn Primary Care Provider [phone] Encounter Details Date Type Department Care Team (Late st Contact Info) Description 12/27/2020 Lab Requisition [facility] Pathology & Laboratory Medicine - [facility] [address] [place], [place] [address] Outr Resulting Lab, Provider Social History Tobacco [...] Procedure Name Priority Date/Time Associated Diagnosis Comments HIV 1/2 ANTIGEN AND ANTIBODY, 4TH GENERATION Routine 12/27/2020 15:32 EDT documented in this encounter Results * HIV 1/2 ANTIGEN AND ANTIBODY, 4TH GENERATION (12/27/2020 15:32 EDT) HIV 1 and 2 Antibody/p24 Antigen, 4th Generation Negative Negative 12/28/2020 12:37 EDT [facility] Comment: If acute HIV-1 infection is suspected in a high risk ??patient, submit plasma specimen for HIV-1 RNA quantitation test. Fourth Generation assay performed on the Siemens Plandayaur. Blood VENOUS BLOOD / Unknown 12/27/2020 15:32 EDT 12/27/2020 20:51 EDT us Provider Outr Resulting Lab IMMUNOLOGY AND SEROL OGY ORDERABLES Final Result [facility] [address] [place] [address] documented in this encounter Visit Diagnoses Not on filedocumented in this encounter Care Teams Gimp Tacker Relationship Specialty Start Date End Date Stephani Kuhn PA [address] [place] [id number] PCP - General 03/12/14 documented as of this encounter
--- OUTSIDE RECORDS SUMMARY | 2024-05-01 00:07 | XMS_ITS | Encounter Summary ---
Author Organization [facility] Address [address] [place] [address] Care Team Providers Care Harmonica Maker Name Role Phone None, Provider Primary Care Provider Unavailabl e Encounter Details Date Type Department Care Team (Late st Contact Info) Description 08/26/2012 Results Only [facility] Laboratory Services - [facility] ([facility]) [address] [place] [address] Tucker Chavira MD [address] [facility] [place] [address] Social History Tobacco Use Types [...] Date/Time Associated Diagnosis Comments SURGICAL PATHOLOGY Routine 08/26/2012 8:34 EDT documented in this encounter Results * SURGICAL PATHOLOGY (08/26/2012 8:34 EDT) Pathology Report: SURGICAL PATHOLOGY REPORT Reports generated via electronic interface contain original data; however they are lacking the format of the original report. Caution should be taken when reading/interpreting unformatted reports. Name: ? ANISHA MARTIN ? Accession #: ? [id number] ? : ? 1980 (Age: 32) ??F ? Collect Date: ? 08/26/2012 ? Location: ? [facility] ? Receive Date: ? 08/27/2012 ? Provider: TUCKER CHAVIRA MD Copy to: ? Final Pathologic Diagnosis: ? Cervix, LEEP cone biopsy: 1. ?High grade squamous intraepithelial lesion (ERIK II). ??See comment. ? - Ectocervical margin positive for high grade squamous intraepithelial lesion. ?- Endocervical and deep resection margins negative for dysplasia. ?? Comment: ? Carpet Inspector sections were reviewed at the intradepartmental consultation conference. ??(Dr. Oviedo)/[facility] Document reviewed and electronically signed by: ELENI OVIEDO MD Report ??Date: 08/28/2012 14:53 By the signature above, the attending physician certifies that he/she has personally conducted a gross and/or microscopic examination of the described specimens and rendered or confirmed the above diagnosis. Specimen(s) Received: ? LEEP cone of cervix Clinical History: ? LEEP cone of cervix; recurrent ERIK II; LMP: 08/24/2012 Gross Description: ? Received in formalin labelled Veronica, Anisha and cx is the product of a LEEP excision of cervix received open and without orientation, which measures 1.3 x 0.9 cm in diameter and is excised to a greatest depth of 1.1 cm. ??The ectocervix is generally smooth to focally slightly wrinkled and white and there is only a scant amount of possible endocervix, which is rasheed-red and granular. There is a small amount of loosely adherent blood clot attached to the patent os. ??The ectocervical margin is blue inked and the endocervical margin is black inked. ??The specimen is serially, radially sectioned into twelve sections and submitted entirely as (1) through (6). ??(Camryn Cavanaugh)/martin End of Report [facility] 08/26/2012 8:34 EDT 08/27/2012 8:34 EDT us Tucker Chavira MD PATHOLOGY ORDERABLES Final Re sult [facility] [address] [place] [address] documented in this encounter Visit Diagnoses Not on filedocumented in this encounter Care Teams Harmonica Maker Relationship Specialty Start Date End Date None, Provider PCP - General 11/30/11 03/11/14 documented as of this encounter
--- OUTSIDE RECORDS SUMMARY | 2024-05-01 00:08 | XMS_ITS | Encounter Summary ---
Author Organization [facility] [place] [place] [address] Care Team Providers Care Area Field Worker Name Role Phone Deisy Cummings DO Primary Care Provider Unava ilable Reason for Referral * Diagnostic Test (Routine) - Closed Specialty Diagnoses / Procedures Referred By Contac t Referred To Contact Radiology Diagnoses Tear of left acetabular labrum, initial encounter Procedures XR Fluoro Arthrogram Injection Hip Left Russell Beavers MD [address] [place] [address] [facility] Rad Xray [address] [place] [address] [place] [address] Referral ID Status Reason Start Date Expiration Date V isits Requested Visits Authorized [id number] Closed Specialty Service Requested 01/04/2022 07/05/2023 1 1 Reason for Visit * Diagnostic Test (Routine) - Closed Specialty Diagnoses / Procedures Referred By Contac t Referred To Contact Radiology Diagnoses Tear of left acetabular labrum, initial encounter Procedures XR Fluoro Arthrogram Injection Hip Left Russell Beavers MD [address] [place] [address] [facility] Rad Xray [address] [facility] [place] [address] Referral ID Status Reason Start Date Expiration Date V isits Requested Visits Authorized [id number] Closed Specialty Service Requested 01/04/2022 07/05/2023 1 1 Encounter Details Date Type Department Care Team (Latest Contact Info) Description 01/11/2022 10:29 AM EDT - 01/11/2022 10:31 AM EDT Hospital Encounter XRay at [address] [place] [address] Russell Beavers MD [address] [place] [address] Tear of left acetabular labrum, initial encounter Discharge Disposition: Home Social History Tobacco Use Types Packs/Day Years Used Date Smoking Tobacco: Former Sex and Gender Information Value Date Recorded Sex Assigned at Not on file Gender Identity Not on file Sexual Orientation Not on file documented as of this encounter Discharge Instructions * Patient Instructions* Anni Simon - 01/11/2022 11:15 AM EDT Post Arthrogram Patient Instructions You received an injection by BRADEN SERNA PA-C in the diagnostic section of radiology. Procedure: LEFT HIP ARTHROGRAM In the days following the injection: Low intensity movement and exercise of the affected joint. Avoid movements that worsen pain. During the first 48 hours following the injection you may experience mild discomfort at the injection site. If you experience pain or discomfort in the affected area, do the following: Apply cold compress to the affected area. If allowed by your physician, take an anti-inflammatory medication such as ibuprofen (example: Advil), Acetaminophen (example: Tylenol) or Aspirin. IMPORTANT The risk of infection exists whenever the skin is punctured. The risk can be minimized by keeping the injection site clean. However, be aware of the following signs of an infection: Redness and swelling at the injection site. Increased pain. Fever and/or chills. Decreased range of motion in the joint near the injection site. If you experience any of the signs of infection listed above, telephone the diagnostic section of radiology at [phone]. documented in this encounter Medications at Time of Discharge [...] AM EST Office [place] [address] Charles Martines MD [facility] [place] [address] documented as of this encounter Procedures Procedure Name Priority Date/Time Associated Diagnosis Comments XR FLUORO ARTHROGRAM INJECTION HIP LEFT Routine 01/11/2022 11:12 AM EDT Tear of left acetabular labrum, initial encounter documented in this encounter Results * XR Fluoro Arthrogram Injection Hip Left (01/11/2022 11:12 AM EDT) Anatomical Region Laterality Modality Hip Left Radio Fluoroscop y Impressions 01/11/2022 2:54 PM EDT Technically successful left femoral acetabular joint arthrogram. Service Provider: ??Braden Serna PA-C Attending of Record: Dr. Daysi Irwin MD Preliminary report signed by: MAYTE Souza at 01/11/2022 11:34 AM I have personally reviewed the image(s) and the provider's interpretation and agree with the findings, Daysi Irwin MD at 01/11/2022 2:54 PM Thank you for letting us participate in the care of this patient. ??If you are a health care provider and have any questions regarding this report, please contact the number below. ??For patients who have questions please contact the health healthcare prof that requested your imaging first. ? Electronically signed by: Daysi Irwin MD, [facility] ([phone]), at 01/11/2022 2:54 PM Narrative 01/11/2022 2:54 PM EDT EXAMINATION: XR FLUORO ARTHROGRAM INJECTION FEMORAL ACETABULAR JOINT LEFT CLINICAL HISTORY: labral tear - pain - left hip TECHNIQUE: After an extensive conversation with the patient regarding risks and benefits, oral and written consent were obtained.? A pre-procedural time-out was performed, including review of the patient's relevant electronic medical record and allergies, as per [facility] protocol. The patient was positioned supine with the left hip in internal rotation on the fluoroscopic table. ??The skin over the anterior left femoral acetabular joint was prepped and draped in the usual sterile manner. ??1% Lidocaine was used to achieve local anesthesia. ??Under fluoroscopic guidance, a 22-gauge 3.5 inch spinal needle was advanced into the joint space. ??A small amount of the contrast mixture was then injected to confirm intra-articular placement of the needle tip. Once confirmed, a total of 10 mL of the contrast mixture was injected. All needles were removed at the end of the procedure. A dry sterile dressing was placed over the injection site. FINDINGS: 1. Contrast in left femoral acetabular joint space 2. MEDICATIONS: Lidocaine 1% - <5 ml, for subcutaneous anesthesia. CONTRAST: 20cc mixture of the following were prepared: ?Dotarem - 0.2 ml (1:100 dilution). ?Normal Saline - 10mL. ?Omnipaque 300 - 5 mL. ?1% Lidocaine - 5mL. Only 10 ml of this mixture was injected intra-articularly. FLUORO TIME: 0.07 minutes. COMPLICATIONS: ??None immediate. POST-PROCEDURE CARE: Instructions on monitoring of infection and management of post procedure pain were reviewed with and provided to the patient. Procedure Note Daysi Irwin MD - 01/11/2022 EXAMINATION: XR FLUORO ARTHROGRAM INJECTION FEMORAL ACETABULAR JOINTLEFT CLINICAL HISTORY: labral tear - pain - left hip TECHNIQUE: After an extensive conversation with the patient regarding risks andbenefits, oral and written consent were obtained.? A pre-procedural time-out was performed, including review of the patient's relevant electronic medicalrecord and allergies, as per [facility] protocol. The patient was positioned supine with the left hip in internal rotationon the fluoroscopic table. The skin over the anterior left femoral acetabularjoint was prepped and draped in the usual sterile manner. 1% Lidocaine was usedto achieve local anesthesia. Under fluoroscopic guidance, a 22-gauge 3.5inch spinal needle was advanced into the joint space. A small amount of thecontrast mixture was then injected to confirm intra-articular placement of theneedle tip. Once confirmed, a total of 10 mL of the contrast mixture wasinjected. All needles were removed at the end of the procedure. A dry sterile dressingwas placed over the injection site. FINDINGS: 1. Contrast in left femoral acetabular joint space 2. MEDICATIONS: Lidocaine 1% - <5 ml, for subcutaneous anesthesia. CONTRAST: 20cc mixture of the following were prepared: Dotarem - 0.2 ml (1:100 dilution). Normal Saline - 10mL. Omnipaque 300 - 5 mL. 1% Lidocaine - 5mL. Only 10 ml of this mixture was injected intra-articularly. FLUORO TIME: 0.07 minutes. COMPLICATIONS: None immediate. POST-PROCEDURE CARE: Instructions on monitoring of infection andmanagement of post procedure pain were reviewed with and provided to the patient. IMPRESSION Technically successful left femoral acetabular joint arthrogram. Service Provider: Braden Serna PA-C Attending of Record: Dr. Daysi Irwin MD Preliminary report signed by: MAYTE Souza at 01/11/2022 11:34 AM I have personally reviewed the image(s) and the provider's interpretationand agree with the findings, Daysi Irwin MD at 01/11/2022 2:54 PM Thank you for letting us participate in the care of this patient. If youare a health care provider and have any questions regarding this report,please contact the number below. For patients who have questions please contactthe health healthcare prof that requested your imaging first. Electronically signed by: Daysi Irwin MD, [facility]([phone]), at 01/11/2022 2:54 PM Russell Beavers MD IMG FLUORO ORDERABLE S documented in this encounter Visit Diagnoses Diagnosis Tear of left acetabular labrum, initial encounter documented in this encounter Administered Medications Inactive Administered Medications - up to 3 most recent administrations Medication Order MAR Action Action Date Dose Rate Site iohexoL (Omnipaque) (300 mg/mL) solution 0-10 mL 0-10 mL, Intra-articular, ONCE, 1 dose, On Sun01/11/22 at 1130, Warning Vesicant/Irritant Medication , Radiology Contrast, Routine Given 01/11/2022 11:30 AM EDT 5 mLs lidocaine (Xylocaine) 1% (10 mg/mL) injection 0-100 mg 0-100 mg (0-10 mL), Intra-articular, ONCE, 1 dose, On Sun01/11/22 at 1130, Radiology Protocol Medication, Routine Given 01/11/2022 11:30 AM EDT 2.5 mLs documented in this encounter Care Teams Area Field Worker Relationship Specialty Start Date End Date Deisy Cummings DO PCP - General 03/17/14 04/16/23 documented as of this encounter
--- OUTSIDE RECORDS SUMMARY | 2024-05-01 00:08 | XMS_ITS | Encounter Summary ---
Author Organization [facility] [place] [address] Care Team Providers Care Vulcanizer Operator Name Role Phone Deisy Cummings DO Primary Care Provider Unava ilable Encounter Details Date Type Department Care Team (Late st Contact Info) Description 12/01/2020 Telephone Dermatology at [address] [phone] Akila Rodriguez MD [address] [place] [id number] Social History Tobacco Use Types Packs/Day Years Used Date Smoking Tobacco: Former Sex and Gender Information Value Date Recorded Sex Assigned at Not on file Gender Identity Not on file Sexual Orientation Not on file documented as of this encounter Miscellaneous Notes * Telephone Encounter - Nohemy Huizarbella Rodriguez - 12/01/2020 11:04 AM EDT I returned patient's call today regarding scheduling an appointment with Dr. Rodriguez from a referral in [place]. I was unable to speak w/ anyone when I called, but I was able to leave a detailedmessage and [phone] for call back. documented in this encounter Plan of Treatment Upcoming Encounters Date Type Department Care Team (Late Contact Info) Description 05/14/2024 11:30 AM EST Office [place] [address] Charles Martines MD [facility] [place] [address] documented as of this encounter Visit Diagnoses Not on filedocumented in this encounter Care Teams Vulcanizer Operator Relationship Specialty Start Date End Date Deisy Cummings DO PCP - General 03/17/14 04/16/23 documented as of this encounter
--- OUTSIDE RECORDS SUMMARY | 2024-05-01 00:08 | XMS_ITS | Encounter Summary ---
Author Organization [facility] Address [facility] [place] [address] Care Team Providers Care Clinical Staff Educator Name Role Phone Deisy Cummings DO Primary Care Provider Unava ilable Reason for Visit * Reason Comments Dermatitis * Consultation (Routine) - Closed Specialty Diagnoses / Procedures Referred By Contac t Referred To Contact Dermatology Diagnoses dermatitis Deisy Cummings DO [address] [place] [address] [facility] Dermatology [address] [place] [address] Referral ID Status Reason Start Date Expiration Date V isits Requested Visits Authorized [id number] Closed Consult, [facility] 06/13/2016 06/13/2017 1 1 Encounter Details Date Type Department Care Team (Late st Contact Info) Description 06/21/2016 9:00 AM EST Office Visit Dermatology at [facility] [address] [place] [id number] Russell Briseno MD Perioral dermatitis; Acne vulgaris Social History Tobacco Use Types Packs/Day Years Used Date Smoking Tobacco: Never Assessed Sex and Gender Information Value Date Recorded Sex Assigned at Not on file Gender Identity Not on file Sexual Orientation Not on file documented as of this encounter Progress Notes * Russell Briseno MD - 06/21/2016 9:00 AM EST DERMATOLOGY CONSULT NOTE Date of service: 06/21/2016 Magalie Martin : 1980 Provider: Russell Briseno MD Chief Complaint Patient presents with ??? Dermatitis The patient is seen at the request of Deisy Cummings, who instructed the patient to be seen for evaluation of above SKIN HX: Atypical Nevi removed Acne HPI Magalie Martin is a 35 y.o. year old female, new to me and to dermatology. Here today for evaluation of dermatitis on her face and back acne. The rash on her face has been there 2 months and prior to this she was given steroids some of the bumps went away but a persistent redness around the lips remained and after treatment it all came back. No change in washes/soaps and she stopped using anything on her face. The acne on her back has been there for a year or more. She has tried OTC medications with no change. She has a long history of acne. MEDS: Current Outpatient Prescriptions Medication Sig Dispense Refill ??? escitalopram (LEXAPRO) 10 mg Tablet TAKE ONE TABLET BY MOUTH EVERY DAY 0 ??? lamoTRIgine (LAMICTAL) 100 mg Tablet TAKE ONE TABLET BY MOUTH EVERY DAY 0 No current facility-administered medications for this visit. ADR: Pcn [penicillins]; Shellfish containing products; and Sulfa (sulfonamide antibiotics) ROS General: feeling well Skin: denies other skin complaints MEDICAL HISTORY: There is no problem list on file for this patient. 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 Examination of skin from the waist up was performed. This includes examination of the skin of the face, ears, neck, chest, axillae, left and right upper extremities, hands, back, and abdomen. Significant skin findings: A. Inflamed papules on the perioral skin and few on the upper trunk ASSESSMENT/PLAN: A. Perioral Dermatitis and mild acne on the upper trunk - Etiology reviewed - Different treatment options as well as their risks and benefits were discussed with the patient today. - A combined decision was made to treat symptoms with doxycycline and metro cream - Advised patient to use OTC 5% Benzoyl Peroxide wash on her back and shoulders, let sit for 5 minutes before rinsing Rx: Doxycycline 100mg po once daily for 30 days. Instructed to take with a full glass of water and not to lie down within 30 minutes of taking dose. Side effects and dosing of doxycycline reviewed, including but not limited to GI upset, esophagitis, cost of medication, photosensitivity, pseudotumorcerebri, possibility of vaginal yeast infection, and contraindication. Rx: Metronidazole cream - apply to the face twice daily as needed. Follow up: 6 weeks for follow up, sooner if needed. I am documenting this encounter acting as the scribe for and in the presence of Dr. Briseno: Raina Matute LPN and Mae You, Clinical Scribe I performed the above scribed service and agree with the accuracy of the documentation in this encounter. Russell Briseno MD Abnormal Psychology Teacher of Dermatology, Department of Surgery [facility] cc: Deisy Cummings DO documented in this encounter Plan of Treatment Upcoming Encounters Date Type Department Care Team (Late st Contact Info) Description 05/14/2024 11:30 AM EST Office [place] [address] Charles Martines MD [facility] [place] [address] documented as of this encounter Visit Diagnoses Diagnosis Perioral dermatitis Rosacea Acne vulgaris Other acne documented in this encounter Care Teams Clinical Staff Educator Relationship Specialty Start Date End Date Deisy Cummings DO PCP - General 03/17/14 04/16/23 documented as of this encounter
--- OUTSIDE RECORDS SUMMARY | 2024-05-01 00:08 | XMS_ITS | Encounter Summary ---
Author Organization [facility] [place] [address] Care Team Providers Care Family Consumer Science Fcs Teacher Name Role Phone Deisy Cummings DO Primary Care Provider Unava ilable Reason for Visit * Reason Comments Follow-up 6 Week Follow Up Arcelia ointment Encounter Details Date Type Department Care Team (Late st Contact Info) Description 08/02/2016 10:00 AM EDT Office Visit Dermatology at [facility] [address] [place] [address] Russell Briseno MD Telangiectasia; Facial rhytids; Acne, unspecified acne type Social History Tobacco Use Types Packs/Day Years Used Date Smoking Tobacco: Former Sex and Gender Information Value Date Recorded Sex Assigned at Not on file Gender Identity Not on file Sexual Orientation Not on file documented as of this encounter Progress Notes * Russell Briseno MD - 08/02/2016 10:00 AM EDT DERMATOLOGY ESTABLISHED PATIENT CLINIC NOTE Date of service: 08/02/2016 Magalie Martin : 1980 Provider: Russell Briseno MD Chief Complaint Patient presents with ??? Follow-up 6 Week Follow Up Appointment SKIN HISTORY: Atypical Nevi removed Acne HPI Magalie Martin is a 36 y.o. year old female, established patient last seen by me on 06/21/2016. Patient presents to the clinic today for a 6 week follow up for her perioral dermatitis and acne. She completed her doxycycline 100 mg daily for 30 days course, tolerated well, no GI upset, she is usingthe metronidazole cream twice daily and does not feel that it helps with a red spot on the chin, but the bumps she was experiencing are much improved. She did not cloth picker the over the counter benzol peroxide wash yet. She feels that she is a little better since her last appointment, however she still feels bumps around the mouth and it is itchy. The only other think she is applying to the face ishratna ag. MEDS: Current Outpatient Prescriptions Medication Sig Dispense Refill ??? escitalopram (LEXAPRO) 10 mg Tablet TAKE ONE TABLET BY MOUTH EVERY DAY 0 ??? lamoTRIgine (LAMICTAL) 100 mg Tablet TAKE ONE TABLET BY MOUTH EVERY DAY 0 ??? doxycycline (VIBRAMYCIN) 100 mg Capsule Take 1 capsule by mouth daily. For 30 days 30 capsule 0 ??? metroNIDAZOLE (METROCREAM) 0.75 % Cream Apply topically 2 times daily. As needed 45 g 5 No current facility-administered medications for this visit. ADR: Allergies Allergen Reactions ??? Pcn [Penicillins] ??? Shellfish Containing Products ??? Sulfa (Sulfonamide Antibiotics) ROS General: feeling well Skin: denies other skin complaints EXAM General: NAD, pleasant, cooperative Skin: An exam of the skin from the neck up was performed. This includes examination of the skin of the face, ears, scalp, and neck. Significant skin findings: A. Right oral commissure: telangiectasias and a single pustule B. Facial Rhytids and acne scarring C. Less than 5 total acneiform papules on the face ASSESSMENT/PLAN: A. Telangiectasias - Etiology reviewed - Advised patient to try OTC Afrin to help reduce the redness - Briefly discussed treating cosmetically with V-Beam. Discussed risks and benefits with patient. Patient informed sun exposure prior to and following treatment must be avoided due to risk of hyperpigmentation. Patient is aware that this is considered a cosmetic procedure and not covered by insurance. Patient quoted: $350 per treatment. Patient is aware that this may take more than one treatment (2-3). Patient will call should they wish to proceed. B. Facial Rhytids and acne scarring - Discussed starting the use of tretinoin to help with her symptoms - Discussed with patient that treatment/removal would be considered cosmetic, therefore insurance would not cover it and patient would be expected to pay out of pocket, in full, at time of service. - No treatment warranted today C. Acne, very mild - Different treatment options as well as their risks and benefits were discussed with the patient today. - Combined decision was made to treat symptoms with benzaclin - Wash face once daily in the morning with mild cleanser. Can use BPO cleanser on trunk - Can also use OTC differin/adapalene once nightly Rx: Benzaclin- apply to the face once daily ( if this is not covered patient will try OTC Differin) Follow up: PRN I am documenting this encounter acting as the scribe for and in the presence of Dr. Briseno: INES TURNER, DISINTEGRATOR and Mae You, Clinical Scribe I performed the above scribed service and agree with the accuracy of the documentation in this encounter. Russell Briseno MD [employer] Specialist of Dermatology, Department of Surgery [facility] documented in this encounter Plan of Treatment Upcoming Encounters Date Type Department Care Team (Late st Contact Info) Description 05/14/2024 11:30 AM EST Office [place] [address] Charles Martines MD [facility] [place] [address] documented as of this encounter Visit Diagnoses Diagnosis Telangiectasia Other and unspecified capillary diseases Facial rhytids Other specified hypertrophic and atrophic condition of skin Acne, unspecified acne type documented in this encounter Care Teams Family Consumer Science Fcs Teacher Relationship Specialty Start Date End Date Deisy Cummings DO PCP - General 03/17/14 04/16/23 documented as of this encounter
--- OUTSIDE RECORDS SUMMARY | 2024-05-01 00:08 | XMS_ITS | Encounter Summary ---
Author Organization [facility] [place] [address] Care Team Providers Care Machine Tool Electrician Name Role Phone Deisy Cummings DO Primary Care Provider Unava ilable Encounter Details Date Type Department Care Team (Late st Contact Info) Description 11/25/2020 Telephone Dermatology at [address] [id number] Akila Rodriguez MD [address] [place] [id number] Social History Tobacco Use Types Packs/Day Years Used Date Smoking Tobacco: Former Sex and Gender Information Value Date Recorded Sex Assigned at Not on file Gender Identity Not on file Sexual Orientation Not on file documented as of this encounter Miscellaneous Notes * Telephone Encounter - Alicia Huizar - 11/25/2020 1:15 PM EDT I contacted patient to schedule visit with Dr. Rodriguez in [place] from a referral. I was unable to speak w/ anyone when I called, but I was able to leave a detailed message and [phone] for call back. Patient is new to dermatology and should be scheduled for a 20 minute appointment in a New patient visit slot. documented in this encounter Plan of Treatment Upcoming Encounters Date Type Department Care Team (Late Contact Info) Description 05/14/2024 11:30 AM EST Office [place] [address] Charles Martines MD [facility] [place] [address] documented as of this encounter Visit Diagnoses Not on filedocumented in this encounter Care Teams Machine Tool Electrician Relationship Specialty Start Date End Date Deisy Cummings DO PCP - General 03/17/14 04/16/23 documented as of this encounter
--- NOTE | 2024-05-01 06:45 | DI.MRI_ITS ---
Exam(s) MR UPPER JOINT RT WO EXAM: MR UPPER JOINT RT WO CLINICAL HISTORY: eval for ongoing joint infect, struct prob, TRAUMATIC TEAR RTC, S46.011A. TECHNIQUE: Multiplanar multisequence MRI was performed. COMPARISON: Plain films 09 May 2023. MRI 10 Sep 2023. FINDINGS: BONES: There is no fracture or contusion pattern. Screw again noted in anterior humeral head. JOINTS:The acromioclavicular joint shows mild inferior spurring. The glenohumeral joint is normal. TENDONS: Supraspinatus: Unremarkable. Infraspinatus: Unremarkable. Subscapularis: Unremarkable. Teres Minor: Unremarkable. Biceps: Prior biceps tendon repair. Intact. MUSCLES: Unremarkable. GLENOID LABRUM: Unremarkable on this noncontrast examination. SOFT TISSUES: Unremarkable. BURSAE: Subacromial and subdeltoid bursae shows no fluid. Minimal fluid in the subcoracoid bursa.. IMPRESSION: No evidence of joint infection. Evidence of acute rotator cuff tear. Prior biceps tendon repair DATA REPOSITORY:
== END 2024-05-01 00:25 ==
LOC: DI 00:05
PROVIDERS: PCP Nurse Practitioner Family; Visit Provider Student in an Organized Health Care Education/Training Program
DX: S46.011D Strain of muscle(s) and tendon(s) of the rotator cuff of right shoulder, subsequent encounter (principal); X58.XXXD Exposure to other specified factors, subsequent encounter
CPT/HCPCS: 73221